=== PATIENT | female | born 1940 | race Caucasian/White ===

== ENCOUNTER 2017-05-09 11:19 | Emergency (ER) | payer OTHER ==
--- NOTE | 2017-05-09 11:55 | EDPHY ---
H & P Stated Complaint: supra[pubic dickens out Time Seen by Provider: 05/09/17 11:33 HPI/ROS: CHIEF COMPLAINT: suprapubic catheter fell out HISTORY OF PRESENT ILLNESS: 77-year-old female history of end-stage multiple sclerosis, urinary retention, suprapubic catheter in place, arrives via ambulance from [facility] after the patient's suprapubic catheter fell out earlier today and nursing staff was unable to replace it. There been no reports of fever chills, no reports of altered mentation, patient denies flu- like symptoms. REVIEW OF SYSTEMS: A ten point review of systems was performed and is negative with the exception of the items mentioned in the HPI PAST MEDICAL & SURGICAL HISTORY: End-stage multiple sclerosis. Chronic contractures. Chronic indwelling suprapubic catheter secondary to history of urinary retention. SOCIAL HISTORY:lives at [facility] PHYSICAL EXAM (Prior to examination, patient consented to physical exam, hands were washed and my usual and customary physical exam procedures followed) 1) GENERAL: Well-developed, well-nourished, alert and oriented. Appears to be in no acute distress. 2) HEAD: Normocephalic, atraumatic 3) HEENT: Pupils equal, round, reactive to light bilaterally. Sclera anicteric. 4) NECK: Full range of motion, no meningeal signs. 5) LUNGS: Clear auscultation bilaterally, no wheezes, no rhonchi, no retractions. 6) HEART: Regular rate and rhythm, no murmur, no heave, no gallop. 7) ABDOMEN: right lower quadrant suprapubic catheter site with leaking urine. No guarding, no rebound, no focal tenderness, negative McBurney's, negative Mcmahon's, negative Rovsing's, negative peritoneal sign, 8) MUSCULOSKELETAL: o peripheral edema or discoloration. 9) BACK: No CVA tenderness. 10) SKIN: No rash, no petechiae. 11) Psychiatric: Patient is oriented X 3, there is no agitation. DIFFERENTIAL DIAGNOSIS: in no particular include but limited to cystitis, urinary retention, suprapubic catheter replacement - Personal History Current Tetanus/Diphtheria Vaccine: Unsure Current Tetanus Diphtheria and Acellular Pertussis (TDAP): Unsure - Medical/Surgical History Hx Asthma: No Hx Chronic Respiratory Disease: No Hx Diabetes: No Hx Cardiac Disease: Yes Hx Renal Disease: Yes Hx Cirrhosis: No Hx Alcoholism: No Hx HIV/AIDS: No Hx Splenectomy or Spleen Trauma: No Other PMH: PMH: CHF, MS, PNeumonia, DVT, Cellulitis, C-diff (at some time), UTIs , neurogenic bladder, Constipation - Social History Smoking Status: Unknown if ever smoked Constitutional: Initial Vital Signs Temperature (C) 36.7 C 05/09/17 11:20 Heart Rate 72 05/09/17 11:20 Respiratory Rate 16 05/09/17 11:20 Blood Pressure 139/66 H 05/09/17 11:20 O2 Sat (%) 94 05/09/17 11:20 O2 Delivery Mode Oxymizer O2 (L/minute) 10 Allergies/Adverse Reactions: clindamycin [Clindamycin] Allergy (Severe, Verified 09/20/12 13:13) Abdominal Pain Sulfa (Sulfonamide Antibiotics) Allergy (Severe, Verified 09/20/12 13:13) Unknown Home Medications: Medication Instructions Recorded Baclofen [Baclofen 10 mg (*)] 5 mg PO TID 09/20/12 Baclofen [Baclofen 10 mg (*)] 10 mg PO HS 09/20/12 Famotidine [Pepcid 20 MG (*)] 20 mg PO HS 09/20/12 Gabapentin [Neurontin 300 MG (*)] 600 mg PO DAILY@18 09/20/12 Gabapentin [Neurontin 400 MG (*)] 400 mg PO BID@0600,1200 09/20/12 Ipratropium/Albuterol [Duoneb (*)] 1 vial IH BID 09/20/12 Methenamine Raciel [Hiprex 1 gm (*)] 1 gm PO BID 09/20/12 Oxycodone Ir [Oxy Ir 5 mg (RX)] 2 tab PO Q3 PRN 09/20/12 Polyethylene Glycol 3350 [Miralax 17 g PO DAILY 09/20/12 17 gm (*)] Potassium Cl [Klor-Con 10 meq (RX)] 10 meq PO DAILY 09/20/12 Sennosides/Docusate Sodium 3 tab PO DAILY 09/20/12 [Senokot-S] Acetaminophen 650 mg RC Q6 PRN 05/16/16 Acetaminophen [Tylenol 325mg (*)] 650 mg PO Q4 PRN 05/16/16 Albuterol [Proventil Neb] 2.5 mg IH Q2H PRN 05/16/16 Benzocaine/Menthol 15/4 [Cepacol 1 ea PO Q2H PRN 05/16/16 Lozenge] Bisacodyl [Dulcolax] 10 mg RC ONCE PRN 05/16/16 Calcium Carbonate [Tums 500MG (*)] 500 mg PO QID PRN 05/16/16 Cholecalciferol Vit D3 [Vitamin D3 50,000 unit PO Q30D 05/16/16 (*)] Escitalopram Oxalate [Lexapro 10 10 mg PO DAILY 05/16/16 MG] Fluconazole [Diflucan (*)] 100 mg PO DAILY 05/16/16 Folic Acid [Folic Acid 1 MG (*)] 1 mg PO DAILY 05/16/16 Furosemide [Lasix 20 MG (*)] 20 mg PO DAILY 05/16/16 Glatiramer Acetate [Copaxone] 20 mg SQ DAILY 05/16/16 Hydrocortisone 0.2% Valerate 1 julien TP TID 05/16/16 [Westcort 0.2% Cream (*)] Magnesium Hydroxide [Milk of 30 ml PO DAILY PRN 05/16/16 Magnesia (*)] Ondansetron Odt [Zofran Odt 4 mg 4 mg PO TID PRN 05/16/16 (*)] Polyvinyl Alcohol [Artificial 1 drop EACHEYE DAILY 05/16/16 Tears] Polyvinyl Alcohol [Artificial 1 drop EACHEYE Q4H PRN 05/16/16 Tears] Prochlorperazine Maleate 25 mg RC Q12H PRN 05/16/16 [Compazine 25mg supp (*)] Sodium Chloride [Deep Sea] 2 sprays EACHNARE QID 05/16/16 Warfarin Sodium [Coumadin 2.5MG 2.5 mg PO SUTUWETHSA 05/16/16 (*)] clonazePAM [Clonazepam] 0.25 mg PO DAILY PRN 05/16/16 fentaNYL [Duragesic 50 MCG Patch 50 mcg TD Q72H 05/16/16 (*)] guaiFENesin/DEXTROMETHORPHAN 5 ml PO Q6 PRN 05/16/16 [Robitussin Dm Oral Liquid (*)] traZODone [traZODONE 50MG (*)] 75 mg PO HS 05/16/16 traZODone [traZODONE 50MG (*)] 75 mg PO HS PRN 05/16/16 Cephalexin [Keflex] 500 mg PO QID 7 Days 05/09/17 Medical Decision Making ED Course/Re-evaluation: 11:55 a.m.: Repeated attempts to replace the suprapubic catheter by the nursing staff by myself have been unsuccessful. discussed case with Dr Han in ER. 12:39 p.m.: Phone consultation with Dr. Florian Hopson interventional radiologist who will attempt interventional radiology catheter placement 3:15 p.m.: Re-evaluation, patient is return from Interventional Radiology, patent catheter. Waiting on urinalysis prior to discharge 3:25 p.m.: Urinalysis positive for bacteriuria, pyuria. Urine cultured. Doubt urosepsis. Patient started on oral antibiotics. She does have concomitant warfarin use. Have discussed with patient also written her discharge instructions importance of close INR monitoring. - Data Points Laboratory Results: 05/09/17 15:09 Urine Color LISANDRA Urine Appearance HAZY Urine pH 8.0 H (5.0-7.5) Ur Specific [place] 1.019 (1.002-1.030) Urine Protein NEGATIVE (NEGATIVE) Urine Ketones NEGATIVE (NEGATIVE) Urine Blood 2+ H (NEGATIVE) Urine Nitrate POSITIVE H (NEGATIVE) Urine Bilirubin NEGATIVE (NEGATIVE) Urine Urobilinogen 4.0 EU H EU (0.2-1.0) Ur Leukocyte Esterase 3+ H (NEGATIVE) Urine RBC 25-50 /hpf H /hpf (0-3) Urine WBC 50-182 /hpf H /hpf (0-3) Ur Epithelial Cells TRACE /lpf /lpf (NONE-1+) Urine Bacteria TRACE /hpf H /hpf (NONE SEEN) Urine Mucus TRACE /lpf /lpf (NONE-1+) Urine Glucose NEGATIVE (NEGATIVE) Medications Given: Discontinued Medications Lorazepam (Ativan Injection) 0.5 mg IVP EDNOW ONE Stop: 05/09/17 11:55 Last Admin: 05/09/17 12:09 Dose: 0.5 mg Departure - Departure Disposition: Home, Routine, Self-Care Clinical Impression: Suprapubic catheter dysfunction Qualifiers: Encounter type: initial encounter Qualified Code(s): T83.010A - Breakdown ( mechanical) of cystostomy catheter, initial encounter Condition: Good Instructions: Dickens Catheter Placement and Care (ED), Catheter-associated Urinary Tract Infection (ED) Additional Instructions: You need to have your INR checked in 2 days. Recommend you also follow up with your urologist this week. Referrals: Queenie Ray MD [Primary Care Provider] - 1-2 days without fail Don Powell MD [Medical Doctor] - 1-2 days without fail Prescriptions: Cephalexin [Keflex] 500 mg PO QID 7 Days
[2017-05-09] MEDS: LORazepam 2 MG/ML INJ IVP ONE (12:09)
[2017-05-09] MEDS ORDERED: LIDOCAINE 2% JELLY 20 ML (UROJECT) ONE (14:37)
[2017-05-09] MEDS ORDERED: IOPAMIDOL (ISOVUE-300) 100 ML BTL ONE (14:38)
[2017-05-09 15:20] VITALS: O2SAT 94
[2017-05-09 15:23] LABS: COLOR AMBER; LEUKOCYTE ESTERASE,URINE 3+ (NEGATIVE); NITRITE,URINE POSITIVE (NEGATIVE)
[2017-05-09 15:27] LABS: BACTERIA TRACE /hpf (NONE SEEN); MUCUS TRACE /lpf (NONE-1+); RBC,URINE 25-50 /hpf (0-3); WBC,URINE 50-182 /hpf (0-3)
[2017-05-09] MEDS: CEPHALEXIN 500 MG CAP PO ONE (15:31)
[2017-05-09 16:35] VITALS: PULSE 67
[2017-05-09 17:00] VITALS: BP 114/62; RESP 20; TEMP 98.1
== END 2017-05-09 16:59 | disposition home or self-care (01) ==
LOC: EDUNIT#
DX: T83.010A Breakdown (mechanical) of cystostomy catheter, initial encounter (principal); I50.9 Heart failure, unspecified; Y82.8 Other medical devices associated with adverse incidents
CPT/HCPCS: 76000; 96374; 99284; J2060; Q9967

== ENCOUNTER 2017-05-15 15:02 | Emergency (ER) | payer OTHER ==
[2017-05-15 15:11] VITALS: RESP 16
[2017-05-15] MEDS ORDERED: CEPHALEXIN 500 MG CAP PO ONE (15:12)
--- NOTE | 2017-05-15 15:16 | EDPHY ---
H & P Time Seen by Provider: 05/15/17 15:02 HPI/ROS: CHIEF COMPLAINT: Right 4th toe laceration HISTORY OF PRESENT ILLNESS: 77-year-old wheelchair-bound female history of end- stage multiple sclerosis arrives via ambulance from [facility] after her wheelchair got away from her right 4th toe got jammed into the wheel sustaining laceration. Tetanus is up-to-date. Denies paresthesia. Denies discoloration. Occurred shortly prior to arrival. Denies other injury. Patient did not fall out of her wheelchair REVIEW OF SYSTEMS: A ten point review of systems was performed and is negative with the exception of the items mentioned in the HPI PAST MEDICAL & SURGICAL HISTORY: End-stage multiple sclerosis, wheelchair bound SOCIAL HISTORY: Lives at [facility] PHYSICAL EXAM (Prior to examination, patient consented to physical exam, hands were washed and my usual and customary physical exam procedures followed) 1) GENERAL: Well-developed, well-nourished, alert and oriented. Appears to be in no acute distress. 2) HEAD: Normocephalic, atraumatic 3) HEENT: Sclera anicteric. 4) NECK: no meningeal signs. 5) LUNGS: Breathing come 6) HEART: Regular rate and rhythm, no murmur, no heave, no gallop. 7) ABDOMEN: No guarding, 8) MUSCULOSKELETAL: Right foot: 2 cm laceration to the distal phalanx of the right 4th toe. There is no erythema, no signs of infection. No foreign body. 9) BACK: no visual or palpable abnormality. 10) SKIN: No rash, no petechiae. DIFFERENTIAL DIAGNOSIS: in no particular include but limited to laceration, fracture, sprain, open fracture Smoking Status: Unknown if ever smoked Constitutional: Initial Vital Signs Temperature (C) 36.9 C 05/15/17 15:10 Heart Rate 83 05/15/17 15:10 Respiratory Rate 16 05/15/17 15:10 Blood Pressure 134/92 H 05/15/17 15:10 O2 Sat (%) 94 05/15/17 15:10 O2 Delivery Mode Room Air Allergies/Adverse Reactions: clindamycin [Clindamycin] Allergy (Severe, Verified 09/20/12 13:13) Abdominal Pain Sulfa (Sulfonamide Antibiotics) Allergy (Severe, Verified 09/20/12 13:13) Unknown Home Medications: Medication Instructions Recorded Baclofen [Baclofen 10 mg (*)] 5 mg PO TID 09/20/12 Baclofen [Baclofen 10 mg (*)] 10 mg PO HS 09/20/12 Famotidine [Pepcid 20 MG (*)] 20 mg PO HS 09/20/12 Gabapentin [Neurontin 300 MG (*)] 600 mg PO DAILY@18 09/20/12 Gabapentin [Neurontin 400 MG (*)] 400 mg PO BID@0600,1200 09/20/12 Ipratropium/Albuterol [Duoneb (*)] 1 vial IH BID 09/20/12 Methenamine Raciel [Hiprex 1 gm (*)] 1 gm PO BID 09/20/12 Oxycodone Ir [Oxy Ir 5 mg (RX)] 2 tab PO Q3 PRN 09/20/12 Polyethylene Glycol 3350 [Miralax 17 g PO DAILY 09/20/12 17 gm (*)] Potassium Cl [Klor-Con 10 meq (RX)] 10 meq PO DAILY 09/20/12 Sennosides/Docusate Sodium 3 tab PO DAILY 09/20/12 [Senokot-S] Acetaminophen 650 mg RC Q6 PRN 05/16/16 Acetaminophen [Tylenol 325mg (*)] 650 mg PO Q4 PRN 05/16/16 Albuterol [Proventil Neb] 2.5 mg IH Q2H PRN 05/16/16 Benzocaine/Menthol 15/4 [Cepacol 1 ea PO Q2H PRN 05/16/16 Lozenge] Bisacodyl [Dulcolax] 10 mg RC ONCE PRN 05/16/16 Calcium Carbonate [Tums 500MG (*)] 500 mg PO QID PRN 05/16/16 Cholecalciferol Vit D3 [Vitamin D3 50,000 unit PO Q30D 05/16/16 (*)] Escitalopram Oxalate [Lexapro 10 10 mg PO DAILY 05/16/16 MG] Fluconazole [Diflucan (*)] 100 mg PO DAILY 05/16/16 Folic Acid [Folic Acid 1 MG (*)] 1 mg PO DAILY 05/16/16 Furosemide [Lasix 20 MG (*)] 20 mg PO DAILY 05/16/16 Glatiramer Acetate [Copaxone] 20 mg SQ DAILY 05/16/16 Hydrocortisone 0.2% Valerate 1 julien TP TID 05/16/16 [Westcort 0.2% Cream (*)] Magnesium Hydroxide [Milk of 30 ml PO DAILY PRN 05/16/16 Magnesia (*)] Ondansetron Odt [Zofran Odt 4 mg 4 mg PO TID PRN 05/16/16 (*)] Polyvinyl Alcohol [Artificial 1 drop EACHEYE DAILY 05/16/16 Tears] Polyvinyl Alcohol [Artificial 1 drop EACHEYE Q4H PRN 05/16/16 Tears] Prochlorperazine Maleate 25 mg RC Q12H PRN 05/16/16 [Compazine 25mg supp (*)] Sodium Chloride [Deep Sea] 2 sprays EACHNARE QID 05/16/16 Warfarin Sodium [Coumadin 2.5MG 2.5 mg PO SUTUWETHSA 05/16/16 (*)] clonazePAM [Clonazepam] 0.25 mg PO DAILY PRN 05/16/16 fentaNYL [Duragesic 50 MCG Patch 50 mcg TD Q72H 05/16/16 (*)] guaiFENesin/DEXTROMETHORPHAN 5 ml PO Q6 PRN 05/16/16 [Robitussin Dm Oral Liquid (*)] traZODone [traZODONE 50MG (*)] 75 mg PO HS 05/16/16 traZODone [traZODONE 50MG (*)] 75 mg PO HS PRN 05/16/16 Cephalexin [Keflex] 500 mg PO QID 7 Days 05/09/17 Cephalexin [Keflex] 500 mg PO QID 5 Days 05/15/17 MDM/Departure - [facility] Procedures: Procedure: Laceration repair. I explained the indications, risks and benefits for both laceration repair and anesthetic administration. Verbal consent was obtained from the patient . The laceration on the right 4th toe was anesthetized using 0.5% bupivicaine without epinephrine digital nerve block. After anesthetic administered the patient was observed for a period of time and had no apparent adverse effects. The wound was cleaned, prepped, draped in normal sterile fashion and explored to its base. No foreign body seen, no foreign bodies palpated. There were no deep structures involved. No tendon injury was identified. The wound was repaired with 4 simple interrupted 4 0 Prolene suture. The wound repair was simple. The procedure was performed by myself. Patient has been informed that scarring will occur, although efforts have been made to minimize this. Medications Given: Discontinued Medications Cephalexin HCl (Keflex) 500 mg PO EDNOW ONE PRN Reason: Protocol Stop: 05/15/17 15:13 Last Admin: 05/15/17 15:43 Dose: 500 mg - Depart Disposition: Home, Routine, Self-Care Clinical Impression: Toe laceration Qualifiers: Encounter type: initial encounter Toe: lesser toe Damage to nail status: without damage Foreign body presence: without foreign body Laterality: right Qualified Code(s): S91.114A - Laceration without foreign body of right lesser toe(s) without damage to nail, initial encounter Condition: Good Instructions: Care For Your Stitches (ED), Laceration (ED) Additional Instructions: Return to the ER if you develop redness, swelling, discharge, warmth to the wound, red streaks going up yourleg, or any other symptoms that concern you. Prescriptions: Cephalexin [Keflex] 500 mg PO QID 5 Days Referrals: Return, to the ER in 14 days for suture removal [Other] - 05/29/17
[2017-05-15 16:25] VITALS: BP 129/80; PULSE 85; TEMP 97.9; O2SAT 93
== END 2017-05-15 16:25 | disposition home or self-care (01) ==
LOC: EDUNIT#
PROC: 0HQMXZZ Repair Right Foot Skin, External Approach (ICD-10-PCS; principal; 2017-05-15)
DX: S91.114A Laceration without foreign body of right lesser toe(s) without damage to nail, initial encounter (principal); Z79.01 Long term (current) use of anticoagulants; W23.0XXA Caught, crushed, jammed, or pinched between moving objects, initial encounter; Y92.129 Unspecified place in nursing home as the place of occurrence of the external cause

== ENCOUNTER 2017-07-15 20:11 | Inpatient (IN) | payer OTHER ==
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
[2017-07-15] MEDS ORDERED: ACETAMINOPHEN 325 MG TAB PO PRN (22:01)
[2017-07-15] MEDS ORDERED: ONDANSETRON 4 MG/2 ML VIAL IVP PRN (22:01)
[2017-07-15] MEDS ORDERED: ONDANSETRON DISINTEGRATING 4 MG TAB PO PRN (22:01)
[2017-07-15] MEDS ORDERED: fentaNYL 100 MCG/2 ML INJ ONE (22:47)
[2017-07-15 23:07] LABS: % IMMATURE GRANULYOCYTES 0.4 % (0.0-1.1); ABSOLUTE IMMATURE GRANULOCYTES 0.03 10^3/uL (0.00-0.10); ADD DIFF? NO; ADD MORPH? NO; ADD SCAN? NO; ATYPICAL LYMPHOCYTE FLAG 0 (0-99); FRAGMENT RBC FLAG 0 (0-99); HEMATOCRIT 41.1 % (38.0-47.0); HEMOGLOBIN 13.6 g/dL (12.6-16.3); LEFT SHIFT FLG 0 (0-99); LIPEMIA HEMOLYSIS FLAG 80 (0-99); MEAN CELL HEMOGLOBIN CONCENTR. 33.1 g/dL (32.4-36.7); MEAN CELL VOLUME 99.8 fL (81.5-99.8); MEAN PLATELET VOLUME 9.5 fL (8.7-11.7); PLATELET CLUMPS FLAG 0 (0-99); PLATELET COUNT 208 10^3/uL (150-400); RED BLOOD CELL COUNT 4.12 10^6/uL (4.18-5.33); RED CELL DISTRIBUTION WIDTH 12.6 % (11.5-15.2)
[2017-07-15] MEDS ORDERED: fentaNYL 100 MCG/2 ML INJ IVP ONE (23:10)
[2017-07-15 23:16] LABS: APTT 46.8 SEC (23.0-38.0); INR 1.96 (0.83-1.16); PROTIME(PATIENT) 22.4 SEC (12.0-15.0)
[2017-07-15 23:24] LABS: ANION GAP 11 mEq/L (8-16); CALCIUM 9.6 mg/dL (8.5-10.4); CARBON DIOXIDE 28 mEq/l (22-31); CHLORIDE 99 mEq/L (97-110); CREATININE 0.6 mg/dL (0.6-1.0); GLOMERULAR FILTRATION RATE > 60; GLUCOSE 114 mg/dL (70-100); POTASSIUM 4.3 mEq/L (3.5-5.2); SODIUM 138 mEq/L (134-144)
--- NOTE | 2017-07-15 23:42 | PDGENHP ---
History and Physical - Chief Complaint Leg pain - History of Present Illness 77 yo F w/ advanced MS presents to ED with b/l leg pain after fall during transfer at her nursing facility. On Tuesday patient experienced a fall at her home ([facility]) during a transfer. She experienced days for the following days until finally Xrays were obtained showing bilateral fractures. She was brought in to the ED for further evaluation. Upon my evaluation patient has no complaints aside from bilateral leg pain. She is wheelchair bound at baseline, uses 4 L/min O2 continuously, and has an indwelling suprapubic catheter. History Information - Allergies/Home Medication List Allergies/Adverse Reactions: clindamycin [Clindamycin] Allergy (Severe, Verified 09/20/12 13:13) Abdominal Pain Sulfa (Sulfonamide Antibiotics) Allergy (Severe, Verified 09/20/12 13:13) Unknown Home Medications: Baclofen [Baclofen 10 mg (*)] 5 mg PO TID 09/20/12 [Last Taken 09/20/12] Baclofen [Baclofen 10 mg (*)] 10 mg PO HS 09/20/12 [Last Taken 09/19/12] Famotidine [Pepcid 20 MG (*)] 20 mg PO HS 09/20/12 [Last Taken 09/20/12] Gabapentin [Neurontin 300 MG (*)] 600 mg PO DAILY@18 09/20/12 [Last Taken ] Gabapentin [Neurontin 400 MG (*)] 400 mg PO BID@0600,1200 09/20/12 [Last Taken 09/20/12] Ipratropium/Albuterol [Duoneb (*)] 1 vial IH BID 09/20/12 [Last Taken 09/20/12] Methenamine Raciel [Hiprex 1 gm (*)] 1 gm PO BID 09/20/12 [Last Taken 09/20/12] Oxycodone Ir [Oxy Ir 5 mg (RX)] 2 tab PO Q3 PRN 09/20/12 [Last Taken 09/20/12] Polyethylene Glycol 3350 [Miralax 17 gm (*)] 17 g PO DAILY 09/20/12 [Last Taken 09/20/12] Potassium Cl [Klor-Con 10 meq (RX)] 10 meq PO DAILY 09/20/12 [Last Taken ] Sennosides/Docusate Sodium [Senokot-S] 3 tab PO DAILY 09/20/12 [Last Taken 09/20] Acetaminophen 650 mg RC Q6 PRN 05/16/16 [Last Taken Unknown] Acetaminophen [Tylenol 325mg (*)] 650 mg PO Q4 PRN 05/16/16 [Last Taken Unknown] Albuterol [Proventil Neb] 2.5 mg IH Q2H PRN 05/16/16 [Last Taken Unknown] Benzocaine/Menthol 15/01 [Cepacol Lozenge] 1 ea PO Q2H PRN 05/16/16 [Last Taken Unknown] Bisacodyl [Dulcolax] 10 mg RC ONCE PRN 05/16/16 [Last Taken Unknown] Calcium Carbonate [Tums 500MG (*)] 500 mg PO QID PRN 05/16/16 [Last Taken Unknown] Cholecalciferol Vit D3 [Vitamin D3 (*)] 50,000 unit PO Q30D 05/16/16 [Last Taken Unknown] Escitalopram Oxalate [Lexapro 10 MG] 5 mg PO DAILY 05/16/16 [Last Taken Unknown] Fluconazole [Diflucan (*)] 100 mg PO DAILY 05/16/16 [Last Taken Unknown] Folic Acid [Folic Acid 1 MG (*)] 1 mg PO DAILY 05/16/16 [Last Taken Unknown] Furosemide [Lasix 20 MG (*)] 20 mg PO DAILY 05/16/16 [Last Taken Unknown] Glatiramer Acetate [Copaxone] 20 mg SQ DAILY 05/16/16 [Last Taken Unknown] Hydrocortisone 0.2% Valerate [Westcort 0.2% Cream (*)] 1 julien TP TID 05/16/16 [ Last Taken Unknown] Magnesium Hydroxide [Milk of Magnesia (*)] 30 ml PO DAILY PRN 05/16/16 [Last Taken Unknown] Ondansetron Odt [Zofran Odt 4 mg (*)] 4 mg PO TID PRN 05/16/16 [Last Taken Unknown] Polyvinyl Alcohol [Artificial Tears] 1 drop EACHEYE DAILY 05/16/16 [Last Taken Unknown] Polyvinyl Alcohol [Artificial Tears] 1 drop EACHEYE Q4H PRN 05/16/16 [Last Taken Unknown] Prochlorperazine Maleate [Compazine 25mg supp (*)] 25 mg RC Q12H PRN 05/16/16 [ Last Taken Unknown] Sodium Chloride [Deep Sea] 2 sprays EACHNARE QID 05/16/16 [Last Taken Unknown] Warfarin Sodium [Coumadin 2.5MG (*)] 2.5 mg PO SUTUWETHSA 05/16/16 [Last Taken Unknown] clonazePAM [Clonazepam] 0.25 mg PO DAILY PRN 05/16/16 [Last Taken Unknown] fentaNYL [Duragesic 50 MCG Patch (*)] 50 mcg TD Q72H 05/16/16 [Last Taken Unknown] guaiFENesin/DEXTROMETHORPHAN [Robitussin Dm Oral Liquid (*)] 5 ml PO Q6 PRN [Last Taken Unknown] traZODone [traZODONE 50MG (*)] 75 mg PO HS 05/16/16 [Last Taken Unknown] traZODone [traZODONE 50MG (*)] 75 mg PO HS PRN 05/16/16 [Last Taken Unknown] Glatiramer Acetate [Copaxone] 20 mg SQ DAILY 07/15/17 [Last Taken Unknown] I have personally reviewed and updated: family history, medical history - Past Medical History DVT Additional medical history: MS - Family History Positive for: cancer - Social History Smoking Status: Unknown if ever smoked Review of Systems Review of Systems: ROS: 10pt was reviewed & negative except for what was stated in HPI & below Physical Exam Physical Exam: Temp Pulse Resp BP Pulse Ox 36.9 C 72 16 112/71 95 07/15/17 20:17 07/15/17 23:10 07/15/17 23:10 07/15/17 23:10 07/15/17 23:10 O2 (L/minute) 2 Constitutional: appears nourished, uncomfortable Eyes: PERRL, EOMI Ears, Nose, Mouth, Throat: moist mucous membranes, no oral mucosal ulcers Cardiovascular: regular rate and rhythym, no murmur, rub, or gallop Respiratory: no respiratory distress, clear to auscultation Gastrointestinal: normoactive bowel sounds, soft, non-tender abdomen Genitourinary: other (Suprapubic catheter present, scant fibrionus d/c, no signs of infection) Musculoskeletal: pain with ROM, muscular tenderness Neurologic: AAOx3, CN II-XII Intact, other (Minimal LE strength) Psychiatric: interacting appropriately, not anxious Lab Data & Imaging Review 07/15/17 22:40 07/15/17 22:40 WBC 8.45 10^3/uL (3.80-9.50) 07/15/17 22:40 RBC 4.12 10^6/uL (4.18-5.33) L 07/15/17 22:40 Hgb 13.6 g/dL (12.6-16.3) 07/15/17 22:40 Hct 41.1 % (38.0-47.0) 07/15/17 22:40 MCV 99.8 fL (81.5-99.8) 07/15/17 22:40 MCH 33.0 pg (27.9-34.1) 07/15/17 22:40 MCHC 33.1 g/dL (32.4-36.7) 07/15/17 22:40 RDW 12.6 % (11.5-15.2) 07/15/17 22:40 Plt Count 208 10^3/uL (150-400) 07/15/17 22:40 MPV 9.5 fL (8.7-11.7) 07/15/17 22:40 Neut % (Auto) 66.4 % (39.3-74.2) 07/15/17 22:40 Lymph % (Auto) 22.4 % (15.0-45.0) 07/15/17 22:40 Heard % (Auto) 6.4 % (4.5-13.0) 07/15/17 22:40 Eos % (Auto) 3.9 % (0.6-7.6) 07/15/17 22:40 Baso % (Auto) 0.5 % (0.3-1.7) 07/15/17 22:40 Nucleat RBC Rel Count 0.0 % (0.0-0.2) 07/15/17 22:40 Absolute Neuts (auto) 5.62 10^3/uL (1.70-6.50) 07/15/17 22:40 Absolute Lymphs (auto) 1.89 10^3/uL (1.00-3.00) 07/15/17 22:40 Absolute Monos (auto) 0.54 10^3/uL (0.30-0.80) 07/15/17 22:40 Absolute Eos (auto) 0.33 10^3/uL (0.03-0.40) 07/15/17 22:40 Absolute Basos (auto) 0.04 10^3/uL (0.02-0.10) 07/15/17 22:40 Absolute Nucleated RBC 0.00 10^3/uL (0-0.01) 07/15/17 22:40 Immature Gran % 0.4 % (0.0-1.1) 07/15/17 22:40 Immature Gran # 0.03 10^3/uL (0.00-0.10) 07/15/17 22:40 PT 22.4 SEC (12.0-15.0) H 07/15/17 22:40 INR 1.96 (0.83-1.16) H 07/15/17 22:40 APTT 46.8 SEC (23.0-38.0) H 07/15/17 22:40 Sodium 138 mEq/L (134-144) 07/15/17 22:40 Potassium 4.3 mEq/L (3.5-5.2) 07/15/17 22:40 Chloride 99 mEq/L (97-110) 07/15/17 22:40 Carbon Dioxide 28 mEq/l (22-31) 07/15/17 22:40 Anion Gap 11 mEq/L (8-16) 07/15/17 22:40 BUN 15 mg/dL (7-23) 07/15/17 22:40 Creatinine 0.6 mg/dL (0.6-1.0) 07/15/17 22:40 Estimated GFR > 60 07/15/17 22:40 Glucose 114 mg/dL (70-100) H 07/15/17 22:40 Calcium 9.6 mg/dL (8.5-10.4) 07/15/17 22:40 Imaging Review: Bilateral tib/fib fractures. Assessment & Plan Assessment: 77 yo F w/ advanced MS and hx DVT on warfarin presents with bilateral tib/fib fractures after a fall. Plan: 1. Bilateral tib/fib fractures - Occurred from fall during a transfer 3 days prior to admission. Patient is wheelchair bound at baseline but experiencing significant pain at this time. - Oxycodone, morphine for pain control - Orthopedic service aware, will see patient in the morning - Maintain NPO in case they plan intervention 2. MS - Advanced disease, wheelchair bound with suprapubic catheter in place. Lives at [facility]. 3. Hx DVT - On warfarin, INR 1.9 on admission. 4. CHRF - On 2-4 L/min O2 chronically, presumably 2/2 known emphysema. Currently at baseline. Diet - NPO @ MN Code - Full Ppx - SCDs Dispo - Admit to observation status
[2017-07-16] MEDS: oxyCODONE IR 5 MG TAB PO PRN ×6 (02:38→22:10)
[2017-07-16 04:46] LABS: % IMMATURE GRANULYOCYTES 0.3 % (0.0-1.1); ABSOLUTE IMMATURE GRANULOCYTES 0.02 10^3/uL (0.00-0.10); ADD DIFF? NO; ADD MORPH? NO; ADD SCAN? NO; ATYPICAL LYMPHOCYTE FLAG 0 (0-99); FRAGMENT RBC FLAG 0 (0-99); HEMATOCRIT 34.2 % (38.0-47.0); HEMOGLOBIN 11.3 g/dL (12.6-16.3); LEFT SHIFT FLG 0 (0-99); LIPEMIA HEMOLYSIS FLAG 80 (0-99); MEAN CELL HEMOGLOBIN 32.7 pg (27.9-34.1); MEAN CELL VOLUME 98.8 fL (81.5-99.8); MEAN PLATELET VOLUME 9.3 fL (8.7-11.7); PLATELET CLUMPS FLAG 0 (0-99); PLATELET COUNT 185 10^3/uL (150-400); RED BLOOD CELL COUNT 3.46 10^6/uL (4.18-5.33); RED CELL DISTRIBUTION WIDTH 12.7 % (11.5-15.2)
[2017-07-16 05:01] LABS: ANION GAP 5 mEq/L (8-16); CALCIUM 9.4 mg/dL (8.5-10.4); CARBON DIOXIDE 29 mEq/l (22-31); CHLORIDE 102 mEq/L (97-110); CREATININE 0.7 mg/dL (0.6-1.0); GLOMERULAR FILTRATION RATE > 60; GLUCOSE 100 mg/dL (70-100); POTASSIUM 4.1 mEq/L (3.5-5.2); SODIUM 136 mEq/L (134-144)
--- NOTE | 2017-07-16 13:07 | HOSPPROG ---
Hospitalist Progress Note Assessment/Plan: 77 yo F w/ advanced MS and hx DVT on warfarin presents with bilateral tib/fib fractures after a fall. First encounter, chart reviewed. D/W CM. Plan: # Bilateral tib/fib fractures - - Occurred from fall during a transfer 3 days prior to admission. - Patient is wheelchair bound at baseline but experiencing significant pain at this time. - Oxycodone, morphine for pain control - Orthopedic service aware, will see patient today - Unsure about surgical intervention, will give regular diet until decision made # MS - - Advanced disease, wheelchair bound with suprapubic catheter in place. - Lives at [facility]. - Family does not want her to go back there at this time -Not interested in palliative either #. Hx DVT - - On warfarin, INR 1.9 on admission. - Awaiting med rec, will complete when available #. CHRF - - On 2-4 L/min O2 chronically, presumably 2/2 known emphysema. Currently at baseline. Diet - Regular Code - Full Ppx - SCDs Dispo - Change to inpatient status Needs further evaluation and plan of care Await ortho consult Order PT/OT when ok with ortho Subjective: Feeling tired and hungry. Still having pain. Objective: Vital Signs Temp Pulse Resp BP Pulse Ox 36.6 C 96 17 127/80 H 90 L 07/16/17 12:00 07/16/17 12:00 07/16/17 12:00 07/16/17 12:00 07/16/17 12:00 Laboratory Results 07/16/17 04:23 07/16/17 04:23 07/15/17 07/16/17 07/17/17 05:59 05:59 05:59 Intake Total 100 Output Total 250 Balance -150 PT 22.4 SEC (12.0-15.0) H 07/15/17 22:40 INR 1.96 (0.83-1.16) H 07/15/17 22:40 - Physical Exam Constitutional: appears nourished, chronically ill appearing, uncomfortable Eyes: PERRL, anicteric sclera, EOMI Ears, Nose, Mouth, Throat: moist mucous membranes, hearing normal, ears appear normal Cardiovascular: regular rate and rhythym, No JVD, No edema Respiratory: no respiratory distress, no rales or rhonchi, reduced air movement Gastrointestinal: normoactive bowel sounds, No tenderness, No ascites, No guarding Skin: warm, normal color, No mottled, No erythema Musculoskeletal: joint tenderness, pain with ROM, muscular tenderness, generalized weakness Psychiatric: not anxious, not encephalopathic, poor memory ICD10 Worksheet Patient Problems: Problems Problem Status Onset Bilateral tibial fractures Acute Acute lower urinary tract infection Active Infection due to resistant organism Active Fecal impaction Acute Pneumonia Acute ESBL (extended spectrum beta-lactamase) producing bacteria infection Acute 04/18
[2017-07-16] MEDS ORDERED: ALBUTEROL 3 ML DEYVIAL IH PRN (14:04)
[2017-07-16] MEDS ORDERED: ONDANSETRON DISINTEGRATING 4 MG TAB PO PRN (14:04)
[2017-07-16] MEDS ORDERED: OXYCODONE 7.5 MG PO PRN (14:04)
[2017-07-16] MEDS ORDERED: BISACODYL 10 MG SUPP PR PRN (14:04)
[2017-07-16] MEDS ORDERED: CEPACOL LOZENGE PO PRN (14:04)
[2017-07-16] MEDS ORDERED: SODIUM CL NASAL 45 ML BTL EACHNARE PRN (14:04)
[2017-07-16] MEDS ORDERED: GUAIFENESIN/DM 10 ML UDCUP PO PRN (14:04)
[2017-07-16] MEDS ORDERED: CALCIUM CARBONATE 500 MG CHEWABLE TAB PO PRN (14:04)
[2017-07-16] MEDS ORDERED: BACLOFEN 10 MG TAB PO PRN (14:04)
[2017-07-16] MEDS ORDERED: MAGNESIUM HYDROXIDE 30 ML UDCUP PO PRN (14:04)
[2017-07-16] MEDS ORDERED: PHENAZOPYRIDINE HCL 100 MG TAB PO PRN (14:04)
[2017-07-16] MEDS ORDERED: ACETAMINOPHEN 650 MG SUPP PR PRN ×2 (14:04)
[2017-07-16] MEDS ORDERED: NON-FORMULARY NEW DRUG (Polyvinyl Alcohol [Artificial Tears] 1 DROP) EACHEYE PRN (14:04)
[2017-07-16] MEDS ORDERED: CHOLECALCIFEROL VIT D3 50,000 UNIT CAP PO SCH (14:15)
[2017-07-16] MEDS ORDERED: TEARS/DEXTRAN 70/HYPROMELLOSE 15 ML OPHT.BTL EACHEYE PRN (14:33)
--- NOTE | 2017-07-16 14:39 | PDMN ---
Medical Necessity Medical necessity: Pt meets INPT criteria per TREASURY AGENT/MD as of 07/16/17. Est. LOS >2 MN for ongoing eval/mgmt of bilateral tib/fib fractures after a fall; hx MS, DVT , CHRF per TREASURY AGENT progress note.
[2017-07-16] MEDS: GABAPENTIN 400 MG CAP PO SCH ×2 (15:41→21:49)
[2017-07-16] MEDS: ACETAMINOPHEN 325 MG TAB PO SCH ×2 (15:41→21:50)
[2017-07-16] MEDS: LIDOCAINE 5% 1 EA PATCH TD SCH (15:42)
--- NOTE | 2017-07-16 16:26 | ASMTCMCOM ---
CM Note CM Note Notes: Pt. is a 77-year-old woman admitted after Pt. fell at [facility] and has bilateral tib/fib fractures. Pt. w/ hx. advanced MS and has lived at [facility] for some 10 years. Per daughter, Jessica Pt "was dropped" on 07/12/17 by staff at [facility]. Per Jesisca, Pt. had many interactions with staff after she was dropped and no one noticed her legs were in need of ortho medical attention for days. Daughter would like Pt. not to go back to [facility] at this time. Daughter would like Inpatient Rehab eval and is open to new temporary rehab placement. [facility] sent referrals via [employer] to [facility]. Discussed Inpatient Rehab eval order with hospitalist. Jessica states her brother is a physician and is contemplating legal options. Await completion of PT eval. Date Signed: 07/16/2017 04:25 PM Electronically Signed By:Dorothy Fischer LCSW
[2017-07-16] MEDS: FAMOTIDINE 20 MG TAB PO SCH (21:49)
[2017-07-16] MEDS: traZODone 50 MG TAB PO SCH (21:50)
[2017-07-16] MEDS: SENNOSIDES/DOCUSATE SODIUM TAB PO SCH (21:50)
[2017-07-17] MEDS: oxyCODONE IR 5 MG TAB PO PRN ×4 (01:45→16:32)
[2017-07-17] MEDS: LIDOCAINE 5% 1 EA PATCH TD SCH ×2 (04:33→14:30)
[2017-07-17] MEDS ORDERED: GLATIRAMER ACETATE 20 MG SQ SCH (09:00)
[2017-07-17] MEDS ORDERED: NON-FORMULARY NEW DRUG (Clonazepam [Clonazepam] 0.25 MG) PO SCH (09:00)
[2017-07-17] MEDS: ESCITALOPRAM OXALATE 10 MG TAB PO SCH (09:43)
[2017-07-17] MEDS: POLYETHYLENE GLYCOL 3350 17 GM PKT PO SCH (09:43)
[2017-07-17] MEDS: SENNOSIDES/DOCUSATE SODIUM TAB PO SCH ×2 (09:43→23:14)
[2017-07-17] MEDS: FOLIC ACID 1 MG TAB PO SCH (09:43)
[2017-07-17] MEDS: GABAPENTIN 400 MG CAP PO SCH ×3 (09:43→23:10)
[2017-07-17] MEDS: clonazePAM 0.5 MG TAB PO SCH (09:44)
[2017-07-17] MEDS: FUROSEMIDE 20 MG TAB PO SCH (09:44)
[2017-07-17] MEDS: POTASSIUM CL 10 MEQ TAB PO SCH (09:44)
[2017-07-17] MEDS: ACETAMINOPHEN 325 MG TAB PO SCH ×3 (09:44→23:14)
--- NOTE | 2017-07-17 10:28 | WOCRNPDOC ---
WOCRN Advanced Assessment Note - Skin Integrity Problem, Advanced Assess Right Sacrum Dressing Type: Open to Air Exudate Amount: None Exudate Characteristic(s): None Nurys Wound Tissue: Blanching, Intact Site Measurement - Head-to-Toe Length X Width X Depth (cm): [id number] Skin Integrity Problem Comment: Discrete, circular-shaped area of blanching erythema noted over patient's R sacrum. Nurys-wound skin intact and blanching throughout. Patient is generally immobile r/t MS and more recently r/t bialteral fx in her legs. Recommend Accu-max pump for her bed. mechanical systems engineer Chela present and assisting. No need for wound care to follow this site ongoing; please reconsult as needed. Left Posterior Upper Thigh Dressing Type: Open to Air Exudate Amount: None Exudate Characteristic(s): None Integumentary Issue Intervention: Barrier Cream Applied (Calazime) Nurys Wound Tissue: Blanching, Erythema, Denuded Nurys Wound Swelling: None Wound Bed Color: Red Site Measurement - Head-to-Toe Length X Width X Depth (cm): [id number] Skin Integrity Problem Comment: Raw, denuded skin noted on patient's L upper/ posterior thigh, just below her nurys-area. Appearance consistent w/ moisture- associated dermatitis. While patient does have a suprapubic catheter in place, urine was visualized coming from her urethra and between her legs during assessment. Calazime paste applied over the denuded skin, and nursing will remove patient's brief to reduce heat/moisture to her skin. I explained to patient the benefits associated w/ removing the brief, and she was amenable to this plan of care. Wound care will follow up with patient on Sunday 07/22.
--- NOTE | 2017-07-17 11:49 | HOSPPROG ---
Hospitalist Progress Note Assessment/Plan: 77 yo F w/ advanced MS and hx DVT on warfarin presents with bilateral tib/fib fractures after a fall. D/W RN. Plan: # Bilateral tib/fib fractures - - Occurred from fall during a transfer 3 days prior to admission. - Patient is wheelchair bound at baseline but experiencing significant pain at this time. - Oxycodone, for pain control. No morphine per daughter. Started long acting oxy as well as IR - Orthopedic service aware, Dr Radford to provide consult. Official note still pending. - Unsure about surgical intervention, will give regular diet until decision made # MS - - Advanced disease, wheelchair bound with suprapubic catheter in place. - Lives at [facility]. - Family does not want her to go back there at this time - Not interested in palliative either #. Hx DVT - - On warfarin, INR 1.9 on admission. - Cont coumadin, reverse if surgery indicated. #. CHRF - - On 2-4 L/min O2 chronically, presumably 2/2 known emphysema. Currently at baseline. Diet - Regular Code - Full Ppx - SCDs Dispo - Change to inpatient status Needs further evaluation and plan of care Await ortho official consult Order PT/OT when ok with ortho High risk for respiratory complications and/or clotting given decreased mobility. Subjective: In bed. Watching TV. C/O pain. No other concerns. Objective: Vital Signs Temp Pulse Resp BP Pulse Ox 36.4 C 88 17 117/66 99 07/17/17 07:29 07/17/17 07:29 07/17/17 07:29 07/17/17 07:29 07/17/17 07:29 PT 22.4 SEC (12.0-15.0) H 07/15/17 22:40 INR 1.96 (0.83-1.16) H 07/15/17 22:40 - Physical Exam Constitutional: appears nourished, chronically ill appearing, uncomfortable Eyes: PERRL, anicteric sclera, EOMI Ears, Nose, Mouth, Throat: moist mucous membranes, hearing normal, ears appear normal Cardiovascular: No JVD, No edema Respiratory: no respiratory distress, no rales or rhonchi, reduced air movement Gastrointestinal: normoactive bowel sounds, No tenderness, No ascites Skin: warm, normal color, No mottled Musculoskeletal: joint tenderness, pain with ROM, muscular tenderness, generalized weakness Psychiatric: not anxious, not encephalopathic, poor judgement, poor memory ICD10 Worksheet Patient Problems: Problems Problem Status Onset Bilateral tibial fractures Acute Acute lower urinary tract infection Active Infection due to resistant organism Active Fecal impaction Acute Pneumonia Acute ESBL (extended spectrum beta-lactamase) producing bacteria infection Acute 04/18
[2017-07-17] MEDS: Glatiramer Acetate [Copaxone] 20 MG SQ SCH (14:45)
--- NOTE | 2017-07-17 15:03 | ASMTCMCOM ---
CM Note CM Note Notes: Chart reviewed. Lengthy discussion with daughter Jessica. [facility] acceptances for inpt vs [facility] at this point will update referrals. CM to follow. Date Signed: 07/17/2017 03:03 PM Electronically Signed By:Nasra Sparks RN
[2017-07-17] MEDS: WARFARIN SODIUM 2.5 MG TAB PO SCH (16:32)
[2017-07-17] MEDS: FAMOTIDINE 20 MG TAB PO SCH (23:14)
[2017-07-17] MEDS: traZODone 50 MG TAB PO SCH (23:15)
[2017-07-18] MEDS: LIDOCAINE 5% 1 EA PATCH TD SCH ×2 (04:16→13:56)
[2017-07-18] MEDS: oxyCODONE IR 5 MG TAB PO PRN ×2 (04:16→15:34)
[2017-07-18] MEDS: GABAPENTIN 400 MG CAP PO SCH ×3 (09:00→20:58)
[2017-07-18] MEDS: ESCITALOPRAM OXALATE 10 MG TAB PO SCH (09:00)
[2017-07-18] MEDS: SENNOSIDES/DOCUSATE SODIUM TAB PO SCH ×2 (09:01→20:57)
[2017-07-18] MEDS: POTASSIUM CL 10 MEQ TAB PO SCH (09:01)
[2017-07-18] MEDS: FOLIC ACID 1 MG TAB PO SCH (09:01)
[2017-07-18] MEDS: POLYETHYLENE GLYCOL 3350 17 GM PKT PO SCH (09:02)
[2017-07-18] MEDS: FUROSEMIDE 20 MG TAB PO SCH (09:02)
[2017-07-18] MEDS: clonazePAM 0.5 MG TAB PO SCH (09:02)
[2017-07-18] MEDS: ACETAMINOPHEN 325 MG TAB PO SCH ×3 (09:02→20:57)
[2017-07-18] MEDS: Glatiramer Acetate [Copaxone] 20 MG SQ SCH (09:03)
--- NOTE | 2017-07-18 11:03 | GCON ---
[f rep st] CONSULTATION ORTHOPEDIC CONSULTATION. DATE OF CONSULTATION: 07/16/2017 REASON FOR CONSULTATION: Bilateral lower extremity pain and injury. HISTORY OF PRESENT ILLNESS: This is a 77-year-old female, with advanced multiple sclerosis, who pres ented to the emergency department on the evening of July 15 from her assisted living at [facility]. There are some conflicting reports as to how the patient's symptoms began. The patient rep orts falling; however, the daughter believes there was trauma that occurred during a transfer at the nursing facility. The patient is wheelchair-bound. They believe this event happened on Tuesday, Jul. She continued to have pain throughout the next few days, until the daughter insisted she come for further evaluation and x-rays. The patient is able to provide her own history. She denies head trauma or loss of consciousness. She is, however, on home oxygen and has an indwelling suprapub ic catheter. Otherwise, she denies fevers, chills, chest pain, shortness of breath, nausea, vomiting . She does admit to some slight decrease in sensation, bilateral lower extremities. Denies headache s, dizziness, or worsened blurred vision. PAST MEDICAL HISTORY: As above. Multiple sclerosis; she also has a history of DVT, also with freque nt respiratory infections and urinary tract infections. ALLERGIES: Include clindamycin and sulfa. MEDICATIONS: Include baclofen, famotidine, gabapentin, DuoNeb, oxycodone IR, polyethylene glycol, po tassium chloride, Senokot, acetaminophen, Cepacol, Dulcolax, calcium carbonate, vitamin D3, Lexapro, fluconazole, folate, Lasix, hydrocortisone cream, milk of magnesia, Zofran, artificial tears, Compazi ne, sodium chloride, Coumadin, clonazepam, fentanyl patch, Robitussin, trazodone, and Copaxone. REVIEW OF SYSTEMS: As above, and 10-point review of systems is otherwise negative. PHYSICAL EXAMINATION: GENERAL: The patient appears well nourished. Alert and oriented x3. HEENT: She has white sclerae, moist mucous membranes. PULMONARY: No respiratory distress, and easy breath ing. MUSCULOSKELETAL: The patient's bilateral lower extremities are in long leg splints. She is ab le to wiggle her toes slightly. She has a brisk capillary refill. Equally, and generally mildly, di minished sensation in the lower extremities throughout the deep peroneal, superficial peroneal, and p lantar nerves. She has bilateral knee contractures from several years of being nonambulatory. She h as no calf pain or tenderness to palpation about her knee. Tenderness to palpation just proximal to the ankle joint bilaterally. LABORATORY DATA: Reviewed, revealing no severe abnormalities. INR is 1.96. IMAGING: Reviewed. X-rays of the bilateral tib-fibs reveal severe osteoporosis with distal-third ti martha and fibula fractures. The left tib-fib fracture is an oblique, minimally displaced, extra-articu lar fracture. The right x-ray does appear to have an intra-articular component, with 1-2 mm of stepo ff/displacement. The right is also an oblique, distal-third tibia and fibula fracture with no intra- articular involvement, mildly displaced. ASSESSMENT AND PLAN: A 77-year-old female, with advanced multiple sclerosis and history of deep vein thrombosis, on Coumadin, with severe osteoarthrosis and bilateral distal-third tibia and fibula frac tures. 1. Bilateral tibia-fibula fractures. Recommend nonweightbearing and nonoperative treatment in prolo nged immobilization. The patient is a poor surgical candidate, with severe osteoporosis, nonambulato ry, and on chronic warfarin. Recommend physical therapy and extreme caution with transfers. She is not to remove the splints. 2. Severe osteoporosis. Recommend followup with primary care physician for consideration of bisphos phonate or teriparatide use. 3. Defer medical management to a hospitalist. The patient will follow up with me in 1-2 weeks for repeat x-rays and possible change of her splints. Discussion was had with the patient's daughter. The patient herself also expressed understanding. Questions were answered. /[id number]/MODL
[2017-07-18] MEDS ORDERED: fentaNYL 75 MCG PATCH TD SCH (12:30)
--- NOTE | 2017-07-18 13:17 | HOSPPROG ---
Hospitalist Progress Note Assessment/Plan: 77 yo F w/ advanced MS and hx DVT on warfarin presents with bilateral tib/fib fractures after a fall. D/W CM. Plan: # Bilateral tib/fib fractures - - Occurred from fall during a transfer 3 days prior to admission. - Patient is wheelchair bound at baseline but experiencing significant pain at this time. - Oxycodone, for pain control. No morphine per daughter. Started long acting oxy as well as IR - Orthopedic service aware, appreciate Dr Vitale consult. - Rec conservative care # MS - - Advanced disease, wheelchair bound with suprapubic catheter in place. - Lives at [facility]. - Family does not want her to go back there at this time - Not interested in palliative either - catheter changed 07/18 #. Hx DVT - - On warfarin, INR 1.9 on admission. - Cont coumadin #. CHRF - - On 2-4 L/min O2 chronically, presumably 2/2 known emphysema. Currently at baseline. Diet - Regular Code - Full Ppx - SCDs Dispo - unclear, daughter looking for facility Needs further evaluation and plan of care PT/OT High risk for respiratory complications and/or clotting given decreased mobility. Subjective: Feeling better today. Still having some pain. Objective: Vital Signs Temp Pulse Resp BP Pulse Ox 37.0 C 87 16 131/64 H 94 07/18/17 07:46 07/18/17 07:46 07/18/17 07:46 07/18/17 07:46 07/18/17 07:46 07/17/17 07/18/17 07/19/17 05:59 05:59 05:59 Intake Total 240 Output Total 0 150 Balance 240 -150 PT 22.4 SEC (12.0-15.0) H 07/15/17 22:40 INR 1.96 (0.83-1.16) H 07/15/17 22:40 - Physical Exam Constitutional: chronically ill appearing, uncomfortable Eyes: PERRL, anicteric sclera Ears, Nose, Mouth, Throat: moist mucous membranes, hearing normal Cardiovascular: No JVD, No edema Respiratory: no respiratory distress, reduced air movement Gastrointestinal: No tenderness, No ascites Genitourinary: other (suprapubic) Skin: warm, No mottled Musculoskeletal: pain with ROM, generalized weakness Psychiatric: not anxious, not encephalopathic, poor memory ICD10 Worksheet Patient Problems: Problems Problem Status Onset Bilateral tibial fractures Acute Acute lower urinary tract infection Active Infection due to resistant organism Active Fecal impaction Acute Pneumonia Acute ESBL (extended spectrum beta-lactamase) producing bacteria infection Acute 04/18
[2017-07-18 14:04] LABS: INR 2.67 (0.83-1.16); PROTIME(PATIENT) 28.7 SEC (12.0-15.0)
[2017-07-18] MEDS: WARFARIN SODIUM 3 MG TAB PO SCH (15:35)
--- NOTE | 2017-07-18 16:31 | ASMTCMCOM ---
CM Note CM Note Notes: PT is recommending pt return to LTC as there are no real goals for pt to be in SNF 2/2 her MS and NWB status. PT currently working with pt on feeding herself. Donna from [facility] was here today and said it's possible they would accept pt but it would be a very short rehab stay. Daughter Jessica [phone] toured [facility] and does not think it would be a good fit for her mother as there didn't appear to be much activity or stimulation. CM had 3 or 4 conversations with Jessica today about what happened at [facility] and pt's future LTC stay. She asked for a referral to be sent to [facility] in [place]. She is considering transferring her mother there for LTC initially private pay and then to transition to Medicaid. She is hopeful they will accept her for short term rehab as well. APS came in today to interview pt. Jessica does not want her mother to return to at this time, or ever, depending on how the incident is resolved. Date Signed: 07/18/2017 04:30 PM Electronically Signed By:MARKUS Rios
[2017-07-18] MEDS: traZODone 50 MG TAB PO SCH (20:56)
[2017-07-18] MEDS: FAMOTIDINE 20 MG TAB PO SCH (20:58)
[2017-07-19] MEDS: LIDOCAINE 5% 1 EA PATCH TD SCH ×2 (01:55→14:24)
[2017-07-19] MEDS: oxyCODONE IR 5 MG TAB PO PRN ×5 (01:55→23:27)
[2017-07-19 05:38] LABS: INR 2.96 (0.83-1.16); PROTIME(PATIENT) 31.2 SEC (12.0-15.0)
[2017-07-19] MEDS: FOLIC ACID 1 MG TAB PO SCH (08:11)
[2017-07-19] MEDS: SENNOSIDES/DOCUSATE SODIUM TAB PO SCH ×2 (08:11→19:48)
[2017-07-19] MEDS: GABAPENTIN 400 MG CAP PO SCH ×3 (08:11→21:24)
[2017-07-19] MEDS: ACETAMINOPHEN 325 MG TAB PO SCH (08:11)
[2017-07-19] MEDS: clonazePAM 0.5 MG TAB PO SCH (08:12)
[2017-07-19] MEDS: FUROSEMIDE 20 MG TAB PO SCH (08:12)
[2017-07-19] MEDS: POTASSIUM CL 10 MEQ TAB PO SCH (08:12)
[2017-07-19] MEDS: ESCITALOPRAM OXALATE 10 MG TAB PO SCH (08:13)
[2017-07-19] MEDS: POLYETHYLENE GLYCOL 3350 17 GM PKT PO SCH (08:14)
[2017-07-19] MEDS: Glatiramer Acetate [Copaxone] 20 MG SQ SCH (09:13)
--- NOTE | 2017-07-19 10:12 | HOSPPROG ---
Hospitalist Progress Note Assessment/Plan: 77 yo F w/ advanced MS and hx DVT on warfarin presents with bilateral tib/fib fractures after a fall. Today is my 1st encounter with the patient. Chart reviewed. * bilateral tib-fib fractures -appreciate Orthopedic's seeing Marie -to be nonweightbearing and to not remove the splints -at baseline the patient is wheelchair-bound -avoid morphine per family -continued pain management -patient on fentanyl patch,will avoid scheduled long acting -will increase Tylenol dose and keep it scheduled * advanced MS -patient is wheelchair bound -has a suprapubic catheter in place that was changed on July 18 -[facility] that [facility] -per previous note the family does not want her returning there -not interested in any type of palliative care * severe osteoporosis -patient may benefit from a biphosphate/will need outpatient follow-up * DVT history -INR is 2.96 * acute hypoxemic respiratory failure -is on chronic oxygen secondary to emphysema * DVT prophylaxis. On oral anticoagulation * plan. Case management looking at placement Subjective: Marie is c/o pain to her legs. Objective: Vital Signs Temp Pulse Resp BP Pulse Ox 37.0 C 97 16 122/79 H 97 07/19/17 08:00 07/19/17 08:00 07/19/17 08:00 07/19/17 08:00 07/19/17 08:00 07/18/17 07/19/17 07/20/17 05:59 05:59 05:59 Intake Total 240 850 250 Output Total 0 750 Balance 240 100 250 PT 31.2 SEC (12.0-15.0) H 07/19/17 04:26 INR 2.96 (0.83-1.16) H 07/19/17 04:26 - Physical Exam Constitutional: appears nourished, chronically ill appearing, uncomfortable Eyes: PERRL Ears, Nose, Mouth, Throat: hearing normal Cardiovascular: regular rate and rhythym Respiratory: no respiratory distress, reduced air movement Skin: warm Musculoskeletal: muscular tenderness, generalized weakness Neurologic: AAOx3 Psychiatric: interacting appropriately, not anxious ICD10 Worksheet Patient Problems: Problems Problem Status Onset Bilateral tibial fractures Acute Acute lower urinary tract infection Active Infection due to resistant organism Active ESBL (extended spectrum beta-lactamase) producing bacteria infection Acute 04/18 Fecal impaction Acute Pneumonia Acute
[2017-07-19] MEDS ORDERED: ACETAMINOPHEN 325 MG TAB PO SCH (11:30)
[2017-07-19] MEDS ORDERED: FLU VACC QS 2017-18 (3YR+)/PF 0.5 ML SYR (FLUARIX QUAD) IM ONE (11:44)
[2017-07-19] MEDS: ACETAMINOPHEN 500 MG TAB PO SCH ×3 (12:24→21:24)
[2017-07-19] MEDS: WARFARIN SODIUM 3 MG TAB PO SCH (15:41)
[2017-07-19] MEDS: WARFARIN SODIUM 2.5 MG TAB PO SCH (15:53)
--- NOTE | 2017-07-19 16:14 | ASMTCMCOM ---
CM Note CM Note Notes: No response from [facility] in [employer], VM left for admissions. [facility] is willing to speak w dghtr if interested in LTC there, cannot accept pt for SNF. Date Signed: 07/19/2017 04:13 PM Electronically Signed By:MARKUS Estevez
[2017-07-19] MEDS: FAMOTIDINE 20 MG TAB PO SCH (19:48)
[2017-07-19] MEDS: traZODone 50 MG TAB PO SCH (19:48)
[2017-07-19] MEDS: oxyCODONE ORAL SOLUTION 10 MG/0.5 ML UDSYR PO PRN (21:23)
[2017-07-20] MEDS: oxyCODONE ORAL SOLUTION 10 MG/0.5 ML UDSYR PO PRN ×2 (01:23→04:42)
[2017-07-20] MEDS: LIDOCAINE 5% 1 EA PATCH TD SCH (01:49)
[2017-07-20] MEDS ORDERED: FUROSEMIDE 40 MG/4 ML VIAL IVP ONE (02:12)
[2017-07-20] MEDS ORDERED: FUROSEMIDE 20 MG/2 ML VIAL ONE (02:18)
--- NOTE | 2017-07-20 02:18 | HOSPPROG ---
Hospitalist Progress Note Assessment/Plan: Hospitalist Night Float Note Paged by RN. Patient with increasing oxygen needs overnight from 3-4 liters NC to 15 oxymask. s/p neb and down to 10 lpm. Patient fair/poor historian. denies chest pain/palpitations. she does note chest congestion/cough and possibly some shortness of air but having some difficulty describing symptoms as such. Patient on coumadin with INR yesterday 2.98 for history of DVT. Patient admitted following fall and tib/fib fracture bilaterally. CXR ordered stat and reviewed myself showing diffuse congestion. Plan - IV lasix now. echo in AM. previous echo available for review from 2009 without evidence of CHF. mild MR. patient INR already therapeutic but less likely PE. hx noting emphysema. neb tx prn but patient without wheezing on exam. Patient tachy 90s-100s baseline 60s likely related to hypoxia to 80% and albuterol tx contributing also some. On continuous tele and pulse ox. Discussed with RN. 20 minutes critical care time this AM. Objective: Vital Signs Temp Pulse Resp BP Pulse Ox 37.0 C 78 18 101/55 L 95 07/19/17 23:59 07/19/17 23:59 07/19/17 23:59 07/19/17 23:59 07/19/17 23:59 07/18/17 07/19/17 07/20/17 05:59 05:59 05:59 Intake Total 240 850 750 Output Total 0 750 300 Balance 240 100 450 PT 31.2 SEC (12.0-15.0) H 07/19/17 04:26 INR 2.96 (0.83-1.16) H 07/19/17 04:26 ICD10 Worksheet Patient Problems: Problems Problem Status Onset Bilateral tibial fractures Acute Acute lower urinary tract infection Active Infection due to resistant organism Active ESBL (extended spectrum beta-lactamase) producing bacteria infection Acute 04/18 Fecal impaction Acute Pneumonia Acute
[2017-07-20] MEDS: oxyCODONE IR 5 MG TAB PO PRN ×2 (02:29→09:10)
[2017-07-20 05:11] LABS: INR 3.62 (0.83-1.16); PROTIME(PATIENT) 36.7 SEC (12.0-15.0)
[2017-07-20] MEDS: SENNOSIDES/DOCUSATE SODIUM TAB PO SCH ×2 (08:55→22:42)
[2017-07-20] MEDS: POTASSIUM CL 10 MEQ TAB PO SCH (08:58)
[2017-07-20] MEDS: GABAPENTIN 400 MG CAP PO SCH ×3 (09:01→22:43)
[2017-07-20] MEDS: ESCITALOPRAM OXALATE 10 MG TAB PO SCH (09:03)
[2017-07-20] MEDS: ACETAMINOPHEN 500 MG TAB PO SCH ×3 (09:04→22:43)
[2017-07-20] MEDS: FOLIC ACID 1 MG TAB PO SCH (09:10)
[2017-07-20] MEDS: FUROSEMIDE 20 MG TAB PO SCH (09:11)
[2017-07-20] MEDS: clonazePAM 0.5 MG TAB PO SCH (09:12)
[2017-07-20] MEDS: POLYETHYLENE GLYCOL 3350 17 GM PKT PO SCH (09:21)
[2017-07-20] MEDS: Glatiramer Acetate [Copaxone] 20 MG SQ SCH (10:05)
--- NOTE | 2017-07-20 10:48 | HOSPPROG ---
Hospitalist Progress Note Assessment/Plan: 77 yo F w/ advanced MS and hx DVT on warfarin presents with bilateral tib/fib fractures after a fall. Reviewed her care with Dr Welsh who say her last nigh. * bilateral tib-fib fractures -appreciate Orthopedic's seeing Marie -to be nonweightbearing and to not remove the splints -at baseline the patient is wheelchair-bound -avoid morphine per family -continued pain management -patient on fentanyl patch,will avoid scheduled long acting -will increase Tylenol dose and keep it scheduled * advanced MS -patient is wheelchair bound -has a suprapubic catheter in place that was changed on July 18 -[facility] that [facility] -per previous note the family does not want her returning there -not interested in any type of palliative care *Acute hypoxemia -given a dose of Lasix last night with improvement -BNP is stable, echo is pending -reviewed chest xray which didn't show pulm edema, she has a large hiatal hernia , underlying emphysema, increase in interstitial opacities * severe osteoporosis -patient may benefit from a biphosphate/will need outpatient follow-up *large hiatal hernia -PPI, sitting up with all meals * DVT history -INR is supratherapeutic at 3.62/will hold coumadin * acute hypoxemic respiratory failure -is on chronic oxygen secondary to emphysema * DVT prophylaxis. On oral anticoagulation * plan. cont current treatment, plan of care discussed with patient's daughter , [place] *was asked [employer] de[employer] to sign form in regards to injuries (investigation of the accident)/ consent obtained by family by 2 RN's/ patient medicated for pain and was unable to give consent/ reviewed this w hospital chimney mechanic and was ok to sign forms Subjective: Marie says her legs hurt. Objective: Vital Signs Temp Pulse Resp BP Pulse Ox 36.7 C 91 14 133/69 H 95 07/20/17 04:00 07/20/17 08:58 07/20/17 08:58 07/20/17 08:58 07/20/17 08:58 07/19/17 07/20/17 07/21/17 05:59 05:59 05:59 Intake Total 850 1050 Output Total 750 1150 Balance 100 -100 PT 36.7 SEC (12.0-15.0) H 07/20/17 04:24 INR 3.62 (0.83-1.16) H 07/20/17 04:24 - Physical Exam Constitutional: chronically ill appearing, uncomfortable, No not in pain Eyes: PERRL Ears, Nose, Mouth, Throat: hearing normal Respiratory: no respiratory distress, reduced air movement (bibasilar) Skin: warm Musculoskeletal: muscular tenderness, generalized weakness Neurologic: other (alert, but very drowsy) Psychiatric: interacting appropriately ICD10 Worksheet Patient Problems: Problems Problem Status Onset Bilateral tibial fractures Acute Acute lower urinary tract infection Active Infection due to resistant organism Active ESBL (extended spectrum beta-lactamase) producing bacteria infection Acute 04/18 Fecal impaction Acute Pneumonia Acute
[2017-07-20] MEDS ORDERED: NS 250 ML IV ONE (13:50)
[2017-07-20] MEDS ORDERED: NALOXONE HCL 0.4 MG/ML INJ ONE (14:04)
--- NOTE | 2017-07-20 14:28 | ECHO ---
[email or web address] [address] [address] Main: [phone] Fax: Transthoracic Echocardiogram Name: PHIL IRENE MR#: [id number] Study Date: 07/20/2017 Study Time: 10:22 AM Date of : 1940 Age: 77 year(s) Height: 157.5 cm (62 in.) Weight: 64.86 kg (143 lb.) BSA: 1.66 m2 Gender: Female Examination: Echo Indication: Cardiac: dyspnea, hypoxia Image Quality: Technically Difficult Contrast: Requested by: Rhea Welsh BP: 133 mmHg/69 mmHg Heart Rate: Rhythm: Indication: Cardiac: dyspnea, hypoxia Procedure Staff Manager Cafe: Janey Neil Reading Physician: Ibeth Abbott Requesting Provider: Conclusions: Normal size left ventricle. Normal global systolic LV function. EF is 69 %. No regional wall motion abnormality. Mildly dilated right ventricle. Normal RV function. Moderate mitral annular calcification. There is no significant mitral valve regurgitation. No mitral stenosis is present. Mild aortic cusp calcification is noted. No aortic valve stenosis is present. Pulmonary artery pressure is not obtained due to inadequate TR jet. Compared with 08/21/2010 RV now mildly dilated. Other findings are similar Measurements: Chambers Valvular Assessment AV/MV Valvular Assessment TV/PV Normal Normal Normal Name Value Range Name Value Range Name Value Range Ao Esther (MM): 2.6 cm (2.2 cm-3.7 AV Vmax: 1.26 m/s (1 m/s-1.7 PV Vmax: 0.54 m/s (0.6 m/s-0.9 cm) m/s) m/s) IVSd (2D): 0.6 cm (0.6 cm-1.1 AV maxP mmHg ( - ) PV PGmax: 1 mmHg ( - ) cm) LVOT Vmax: 1.09 m/s (0.7 m/s-1.1 LVDd (2D): 3.7 cm (3.9 cm-5.3 m/s) cm) MV E Vmax: 0.71 m/s ( - ) LVDs (2D): 2.1 cm (2.1 cm-4 MV A Vmax: 1.16 m/s ( - ) cm) MV E/A: 0.61 ( - ) LVPWd (2D): 0.9 cm ( - ) MV meanP mmHg ( - ) LVEF (MOD4): 69 % (>=55 %) Continued Measurements: Patient: PHIL IRENE Study Date: 07/20/2017 Page 1 of 2 10:22 AM Chambers Valvular Assessment AV/MV Name Value Name Value LADs Lon.9 cm MV DecTime: 208 m/s LA Area: 10.4 cm2 MV E/E' Septal: 25.10 LA Volume: 24 ml MV E/E' Lateral: 12.60 LA Volume Index: 14.5 ml/m2 MV VTI: 23.80 cm Additional Vessels Name Value Ao Ascendin.0 cm Findings: Left Ventricle: Normal size left ventricle. No LV hypertrophy. Normal global systolic LV function. EF is 69 %. No regional wall motion abnormality. Right Ventricle: Mildly dilated right ventricle. Normal RV function. Left Atrium: The left atrium is normal in size. Right Atrium: The right atrium is normal in size. Mitral Valve: There is mild thickening of the mitral valve leaflets. Moderate mitral annular calcification. There is no significant mitral valve regurgitation. No mitral stenosis is present. Aortic Valve: The aortic valve is tri-leaflet. Mild aortic cusp calcification is noted. There is no aortic valve regurgitation. No aortic valve stenosis is present. Tricuspid Valve: The tricuspid valve is normal in appearance and function. There is no tricuspid valve regurgitation. Pulmonary artery pressure is not obtained due to inadequate TR jet. Pulmonic Valve: Pulmonary valve not well visualized. Aorta: The aorta is normal. Normal size aortic root measuring 2.6 cm. Normal size ascending aorta measuring 3.0 cm. Pericardium: No pericardial effusion. (No Signature Object) Patient: PHIL IRENE Study Date: 07/20/2017 Page 2 of 2 10:22 AM [id number]
[2017-07-20] MEDS ORDERED: NALOXONE HCL 0.4 MG/ML INJ IVP ONE (14:30)
[2017-07-20] MEDS: PANTOPRAZOLE SODIUM 40 MG TAB PO SCH (14:47)
--- NOTE | 2017-07-20 15:35 | ASMTCMCOM ---
CM Note CM Note Notes: Clarissa Sharp [phone] reviewing pt for [facility] at [facility] in [place]. Although far from [place], family is considering this facility because of their approach to care. Spoke w pt son Armando [phone] and dghtr Mercy [phone], they recognize pt will likely not be accepted at a SNF for rehab but pt needs LTC and private pay. They expect pt private pay money will run out in approx. 2 years then LTC Mdcd. Armando and Mercy are touring [place] today. Also provided Armando w info on [facility], a facility specializing in MS pts (although it is in [place]). Family meeting w Tavon Weaver today. Family is not ruling out a return to [facility] ever but need time to assess the safety of a return to [facility]. [facility] reports there were concerns w [facility] prior to this and the care has declined the last month. [employer] investigating, child care center assistant director met w family at hospital today. Date Signed: 07/20/2017 03:34 PM Electronically Signed By:MARKUS Estevez
[2017-07-20] MEDS ORDERED: fentaNYL 75 MCG PATCH TD SCH (15:36)
[2017-07-20] MEDS ORDERED: fentaNYL 50 MCG PATCH TD SCH (16:00)
[2017-07-20] MEDS: IPRATROPIUM/ALBUTEROL 3 ML DEYVIAL IH SCH ×2 (16:13→22:51)
[2017-07-20 16:58] LABS: HEMATOCRIT 31.6 % (38.0-47.0); HEMOGLOBIN 10.7 g/dL (12.6-16.3)
[2017-07-20] MEDS ORDERED: oxyCODONE IR 5 MG TAB PO PRN (17:55)
[2017-07-20] MEDS ORDERED: KETOROLAC 15 MG/1 ML SDV IVP ONE (17:56)
[2017-07-20] MEDS ORDERED: KETOROLAC 30 MG/1 ML SDV IVP PRN (17:56)
[2017-07-20] MEDS: PATCH REMOVAL 1 EA PATCH TD SCH (17:57)
[2017-07-20 18:43] LABS: % IMMATURE GRANULYOCYTES 0.6 % (0.0-1.1); ABSOLUTE IMMATURE GRANULOCYTES 0.08 10^3/uL (0.00-0.10); ADD DIFF? NO; ADD MORPH? NO; ADD SCAN? NO; ATYPICAL LYMPHOCYTE FLAG 0 (0-99); FRAGMENT RBC FLAG 0 (0-99); HEMATOCRIT 31.7 % (38.0-47.0); LEFT SHIFT FLG 0 (0-99); LIPEMIA HEMOLYSIS FLAG 90 (0-99); MEAN CELL HEMOGLOBIN 33.5 pg (27.9-34.1); MEAN CELL HEMOGLOBIN CONCENTR. 34.7 g/dL (32.4-36.7); MEAN CELL VOLUME 96.6 fL (81.5-99.8); MEAN PLATELET VOLUME 9.9 fL (8.7-11.7); PLATELET CLUMPS FLAG 10 (0-99); PLATELET COUNT 245 10^3/uL (150-400); RED BLOOD CELL COUNT 3.28 10^6/uL (4.18-5.33); RED CELL DISTRIBUTION WIDTH 12.4 % (11.5-15.2)
[2017-07-20 19:09] LABS: ALANINE AMINOTRANSFERASE 18 IU/L (9-52); ALBUMIN 3.3 g/dL (3.5-5.0); ALKALINE PHOSPHATASE 109 IU/L (38-126); ANION GAP 8 mEq/L (8-16); ASPARTATE AMINOTRANSFERASE 22 IU/L (14-46); BILIRUBIN,TOTAL 0.5 mg/dL (0.1-1.4); BILIRUBIN-CONJUGATED 0.4 mg/dL (0.0-0.5); BILIRUBIN-UNCONJUGATED 0.1 mg/dL (0.0-1.1); CALCIUM 8.9 mg/dL (8.5-10.4); CARBON DIOXIDE 31 mEq/l (22-31); CHLORIDE 97 mEq/L (97-110); CREATININE 0.7 mg/dL (0.6-1.0); GLOMERULAR FILTRATION RATE > 60; GLUCOSE 107 mg/dL (70-100); SODIUM 136 mEq/L (134-144); TOTAL PROTEIN 6.5 g/dL (6.3-8.2)
[2017-07-20] MEDS ORDERED: ALBUMIN 5% 500 ML IV ONE (19:43)
[2017-07-20] MEDS ORDERED: ALTEPLASE 2 MG VIAL IVP PRN (19:45)
[2017-07-20] MEDS ORDERED: ERTAPENEM 1 GM in NS 100 ML IV ONE (19:50)
[2017-07-20] MEDS: NS 1,000 ML IV SCH (20:38)
[2017-07-20] MEDS ORDERED: PATCH REMOVAL 1 EA PATCH TD SCH ×2 (21:00)
[2017-07-20 21:06] LABS: INR 4.3 (0.83-1.16); PROTIME(PATIENT) 42.1 SEC (12.0-15.0)
[2017-07-20 21:07] LABS: APTT 82.2 SEC (23.0-38.0)
--- NOTE | 2017-07-20 22:09 | GCON ---
[f rep st] CONSULTATION PULMONARY CRITICAL CARE CONSULTATION. REASON FOR CONSULTATION: Abnormal mental status, hypoxemia, pain, multiple sclerosis. HISTORY: The patient is a 77-year-old who was admitted to the hospital on 07/15. She fell from a [place] [employer] lift at [facility] and was subsequently found to have bilateral tibial/fibular fractures distally. This occurred 3 days prior to her admission. The patient was seen in consultati on by Orthopedics. Surgery was not felt to be needed. She is nonambulatory. A contributing factor was also felt to be severe osteoporosis. The patient has been treated for pain. Today, she was increasingly somnolent secondary to pain medic ations. She was given Narcan with improvement and transferred to the intensive care unit. Oxygen re quirements had increased from 5 L to 10-15 L with her oversedation. The patient does have a history of chronic all over body pain. She was on a fentanyl patch at the [facility]. The Duragesic patch was at 75 mcg every 3 days. It is unclear to me whether this was re cently increased secondary to her lower extremity fractures. She was on multiple other medications o n admission as listed in the MAR. These included Neurontin, low-dose clonazepam, and trazodone. SOCIAL HISTORY: The patient is a resident of [facility]. She has a very supportive family. She did smoke cigarettes in the past. ALLERGIES: Clindamycin, sulfa preparations. FAMILY HISTORY: Noncontributory. REVIEW OF SYSTEMS: A 10-point review of systems is remarkable for a long history of multiple scleros is, dating back approximately 35 years. This has been very gradually progressive. However, over the last few years, she has been fairly stable. Her course has been complicated by recurrent aspiration with aspiration pneumonia, urinary tract infections and a suprapubic catheter, depression, constipat ion, chronic pain that is "all over," COPD/emphysema with reactive airways disease, cutaneous and cut aneous fungal infections. PHYSICAL EXAMINATION: GENERAL: Reveals a woman who is lying on her side in bed. Family is at her [facility]. She is responsive and able to answer questions appropriately. She denies significant leg pa in at this time, only generalized chronic all over body pain, which is not necessarily acute or more severe than her baseline. VITAL SIGNS: Blood pressure is approximately 110/65, heart rate 105 with sinus rhythm on the monitor. Respiratory rate is 20. She is afebrile. She is currently on 10 L wit h saturations in the mid 90s. HEENT: Remarkable for a simple mask being in place. Mucous membranes appear somewhat dry. CHEST: Reveals decreased excursions and breath sounds bilaterally. However, the chest is clear. There are no rhonchi, no wheezes, no significant rales or evidence of consolidat ion. However, she is moving little air secondary to respiratory muscle weakness. HEART: Tachycardi c. There is a systolic murmur present. Heart tones are somewhat distant. There are no obvious gall ops. ABDOMEN: Soft and nontender. Bowel sounds are diminished but present. GENITOURINARY: Suprap ubic catheter is in place with good urine output. EXTREMITIES: Remarkable for chronic changes. Low er extremities are splinted. These were not taken down. DATABASE: Chest x-ray shows bilateral increased lung markings with bronchial wall thickening and ovi e infiltrates, primarily at the bases, somewhat in the apical right lung. Findings, however, are nitish y similar to previous x-rays from previous admissions. There does not appear to be any acute infiltr ate or worsening. White blood cell count is 12,900, hematocrit 31.7. Platelets are normal. INR on Coumadin is 3.62. An arterial blood gas has not yet been obtained. Basic metabolic panel, liver fun ctions studies, and total protein are within normal limits. Albumin is borderline low. ASSESSMENT: 1. Abnormal mental status. This was associated with hypoventilation and increased hypoxemia, in par t secondary to oversedation. She did improve significantly with the administration of Narcan. Narco tics have been cut back. 2. Hypoxemic respiratory failure. This is acute on chronic. She does have a history of known aspir ation, and despite there being no acute changes on x-ray, an aspiration event with emerging pneumonia cannot be absolutely excluded. It would seem reasonable to cover the patient for this for now. 3. Borderline blood pressures. There is no evidence of significant sepsis at this time. I believe her borderline low pressures and current findings are secondary to increased narcotic administration. 4. History of aspiration/aspiration pneumonia. Current x-ray does not show a definite acute infiltr ate or pneumonia. However, she could easily hide infiltrates secondary to her abnormal x-ray at base line. She is n.p.o. currently except for medications. This is appropriate in light of her decreased mental status. Narcan has helped, and may need to be again given. Narcotics will be cut back. 5. Status post bilateral tibial/fibular fractures. These are nonsurgical and have resulted in incre ased pain. However, at this point in time, she is not complaining of leg pain, more her generalized chronic total body pain and discomfort. PLAN AND RECOMMENDATIONS: The patient will be kept in the intensive care unit. Laboratory and chest x-ray will be followed. A PICC line will be requested. Her fentanyl patch will be cut back to 25 m cg every 3 days starting tomorrow. Oxycodone IR will be significantly decreased and used primarily f or pain related to increased mobilization. Oral oxycodone will be continued as currently written for . Lidoderm patches will be continued. Toradol will be trialed. Coumadin will be continued, INR fol lowed. Her other usual medications will be continued. Ertapenem will be considered if fevers develo p as I cannot absolutely rule out a new aspiration event. Bronchodilator therapies will be continued . Further plans and recommendations will be made based on her progress over the next 12-24 hours. /[id number]/MODL
[2017-07-20] MEDS: FAMOTIDINE 20 MG TAB PO SCH (22:42)
[2017-07-20] MEDS: traZODone 50 MG TAB PO SCH (22:43)
[2017-07-21] MEDS ORDERED: NS 250 ML IV ONE (00:45)
[2017-07-21] MEDS: NS 1,000 ML IV SCH ×2 (04:53→18:01)
[2017-07-21 06:20] LABS: % IMMATURE GRANULYOCYTES 0.3 % (0.0-1.1); ABSOLUTE IMMATURE GRANULOCYTES 0.02 10^3/uL (0.00-0.10); ADD DIFF? NO; ADD MORPH? NO; ADD SCAN? NO; ATYPICAL LYMPHOCYTE FLAG 0 (0-99); FRAGMENT RBC FLAG 0 (0-99); LEFT SHIFT FLG 0 (0-99); LIPEMIA HEMOLYSIS FLAG 80 (0-99); MEAN CELL HEMOGLOBIN 32.4 pg (27.9-34.1); MEAN CELL HEMOGLOBIN CONCENTR. 33.3 g/dL (32.4-36.7); MEAN CELL VOLUME 97.1 fL (81.5-99.8); MEAN PLATELET VOLUME 9.4 fL (8.7-11.7); PLATELET CLUMPS FLAG 20 (0-99); PLATELET COUNT 179 10^3/uL (150-400); RED BLOOD CELL COUNT 2.78 10^6/uL (4.18-5.33); RED CELL DISTRIBUTION WIDTH 12.5 % (11.5-15.2)
[2017-07-21] MEDS: IPRATROPIUM/ALBUTEROL 3 ML DEYVIAL IH SCH ×4 (06:25→23:29)
[2017-07-21 06:30] LABS: INR 4.43 (0.83-1.16); PROTIME(PATIENT) 43.1 SEC (12.0-15.0)
[2017-07-21 06:34] LABS: ANION GAP 7 mEq/L (8-16); CALCIUM 8.4 mg/dL (8.5-10.4); CARBON DIOXIDE 30 mEq/l (22-31); CHLORIDE 103 mEq/L (97-110); CREATININE 0.6 mg/dL (0.6-1.0); GLOMERULAR FILTRATION RATE > 60; GLUCOSE 80 mg/dL (70-100); POTASSIUM 3.6 mEq/L (3.5-5.2); SODIUM 140 mEq/L (134-144)
[2017-07-21] MEDS ORDERED: fentaNYL 25 MCG PATCH TD SCH (08:00)
[2017-07-21] MEDS: ACETAMINOPHEN 500 MG TAB PO SCH ×3 (09:21→20:29)
[2017-07-21] MEDS: GABAPENTIN 400 MG CAP PO SCH ×2 (09:21→17:44)
[2017-07-21] MEDS: clonazePAM 0.5 MG TAB PO SCH (09:21)
[2017-07-21] MEDS: ESCITALOPRAM OXALATE 10 MG TAB PO SCH (09:23)
[2017-07-21] MEDS: LIDOCAINE 5% 1 EA PATCH TD SCH (09:38)
[2017-07-21] MEDS: FOLIC ACID 1 MG TAB PO SCH (09:40)
--- NOTE | 2017-07-21 11:05 | PDINTPN ---
Rand Butter Progress Note Assessment/Plan: Assessment: Bilateral lower extremity tib-fib fractures. Nonsurgical. Splinted. The patient does have associated pain as would be expected. This does not appear to be excessive or intractable at this time. Current therapies appear to be appropriate. An epidural catheter her would not seem to be indicated currently. Multiple sclerosis, chronic. This is associated with chronic pain in addition to her fracture pain as outlined above. Again, current therapies appear to be appropriate. History of aspiration and aspiration pneumonia. X-ray is not normal but there is no obvious new infiltrate however cannot rule out a small aspiration pneumonia. On Invanz. She was febrile last night, white blood cell count is somewhat elevated. On bronchopulmonary therapies as well. Nutrition: To restart oral feedings again with precautions today. She is on multiple medications as well with dysphasia 3 precautions. I will change some of her medications temporarily to intravenous preparations. Altered mental status: Remains lethargic in part secondary to medications. Balancing this with adequate pain control is somewhat challenging. Anemia: Hematocrit 27 today, down from approximately 40 on admission. On chronic full-dose anticoagulation with Coumadin. There is no evidence of active bleeding. Metabolic: No issues identified. DVT prophylaxis/anticoagulation. INR is high, over 4. She is on chronic Coumadin. On hold currently. GI prophylaxis: Pantoprazole. Plan: Continue supportive care will be maintained in the intensive care unit. Adequate pain control will be given comma realizing it will not be able to take away all her pain. Epidural catheter does not appear to be indicated at this time. Intravenous fluids will be continued. She will start to take some food and medications today with precautions. Chest x-ray and laboratory will be followed. Repeat H&H later today. 40 minutes of critical care time spent directly with the patient. Discussed issues with the patient's family, nursing, hospitalist, and the ICU multi disciplinary team. Subjective: Doing okay. Slightly somnolent but responsive. She does have some lower extremity pain as well as her chronic general body pain however neither appears to be see in double at this time. Objective: Vital Signs Temp Pulse Resp BP Pulse Ox 37.2 C 94 14 120/50 L 95 07/21/17 07:44 07/21/17 07:44 07/21/17 07:44 07/21/17 07:44 07/21/17 07:44 Laboratory Results 07/21/17 05:45 07/21/17 05:45 07/20/17 07/21/17 07/22/17 05:59 05:59 05:59 Intake Total 1050 Output Total 1150 1425 Balance -100 -1425 PT 43.1 SEC (12.0-15.0) H 07/21/17 05:45 INR 4.43 (0.83-1.16) H 07/21/17 05:45 Laboratory Tests 07/20/17 07/21/17 07/21/17 20:30 05:45 05:45 PT 43.1 H INR 4.43 H VBG Lactic Acid 1.8 Calcium 8.4 L CXR: None today Physical Exam - Physical Exam General Appearance: other (Somnolent, arousable, sponsor) EENT: PERRL/EOMI, other (Nasal cannula at 4-5 L) Neck: normal inspection (No JVD) Respiratory: lungs clear (Anteriorly), decreased breath sounds (At bases), rales (Few scattered), No rhonchi, No wheezing Cardiac/Chest: regular rate, rhythm Abdomen: normal bowel sounds, non-tender, soft, other (Suprapubic catheter in place) Skin: warm/dry, pallor Extremities: other (Both lower extremity splinted comma Efren wrap), No swelling Neuro/Psych: cognition abnormalities (Somewhat somnolent but appears oriented when aroused, probably near baseline), No no motor/sensory deficits ICD10 Worksheet Patient Problems: Problems Problem Status Onset Bilateral tibial fractures Acute Acute lower urinary tract infection Active Infection due to resistant organism Active Fecal impaction Acute Pneumonia Acute ESBL (extended spectrum beta-lactamase) producing bacteria infection Acute 04/18
[2017-07-21] MEDS: POLYETHYLENE GLYCOL 3350 17 GM PKT PO SCH (11:45)
[2017-07-21] MEDS: POTASSIUM CL 10 MEQ TAB PO SCH (11:45)
[2017-07-21] MEDS: fentaNYL 25 MCG PATCH TD SCH (11:47)
--- NOTE | 2017-07-21 11:57 | ASMTCMCOM ---
CM Note CM Note Notes: Chart reviewed. Patient stat call from 3N. Improving today. Not yet ready for dc. Family in process of making decisions r/t discharge dispostions. CM to follow. Date Signed: 07/21/2017 11:56 AM Electronically Signed By:Nasra Sparks RN
[2017-07-21] MEDS: KETOROLAC 30 MG/1 ML SDV IVP SCH ×2 (12:30→17:02)
[2017-07-21] MEDS: SENNOSIDES/DOCUSATE SODIUM TAB PO SCH ×2 (12:40→20:30)
[2017-07-21] MEDS: Glatiramer Acetate [Copaxone] 20 MG SQ SCH (12:40)
[2017-07-21] MEDS: PANTOPRAZOLE SODIUM 40 MG in NS 100 ML IV SCH (14:17)
[2017-07-21] MEDS: FUROSEMIDE 20 MG TAB PO SCH (14:20)
[2017-07-21] MEDS: PANTOPRAZOLE SODIUM 40 MG TAB PO SCH (14:21)
[2017-07-21 17:18] LABS: HEMOGLOBIN 8.1 g/dL (12.6-16.3)
--- NOTE | 2017-07-21 17:51 | HOSPPROG ---
Hospitalist Progress Note Assessment/Plan: * Bilateral tib/fib fractures -continue splint (non-operative) -pain control is difficult -NWB - WC bound at baseline * Hypotension -resolved with IVF bolus * Anemia - worsening - continue to follow -? bleed into fracture * Advanced MS * Suprapubic catheter -chronic * Acute respiratory failure - suspect due to narcotics -improved with Narcan * Aspiration pneumonia -IV Invanz * Metabolic encephalopathy * h/o DVT -continue warfarin INR goal 2-3 * COPD with chronic respiratory failure - baseline 2-4L Subjective: no complaints currently, resting Objective: Vital Signs Temp Pulse Resp BP Pulse Ox 36.9 C 74 16 92/55 L 97 07/21/17 15:43 07/21/17 17:16 07/21/17 17:16 07/21/17 15:43 07/21/17 17:16 Laboratory Results 07/21/17 17:00 07/21/17 05:45 07/20/17 07/21/17 07/22/17 05:59 05:59 05:59 Intake Total 1050 Output Total 1150 1425 275 Balance -100 -1425 -275 PT 43.1 SEC (12.0-15.0) H 07/21/17 05:45 INR 4.43 (0.83-1.16) H 07/21/17 05:45 d/w Dr. Parker ICU rounds - started abx for aspiration PNA CXR - RUL infiltrate - Physical Exam Constitutional: no apparent distress, appears nourished, not in pain Cardiovascular: regular rate and rhythym, no murmur, rub, or gallop Respiratory: no respiratory distress, no rales or rhonchi, clear to auscultation Gastrointestinal: normoactive bowel sounds, soft, non-tender abdomen, no palpable masses Skin: no rashes or abrasions, no fluctuance, no induration Neurologic: No AAOx3 Psychiatric: encephalopathic, poor insight, poor judgement, No interacting appropriately, No agitated ICD10 Worksheet Patient Problems: Problems Problem Status Onset Bilateral tibial fractures Acute Acute lower urinary tract infection Active Infection due to resistant organism Active ESBL (extended spectrum beta-lactamase) producing bacteria infection Acute 04/18 Fecal impaction Acute Pneumonia Acute
[2017-07-21] MEDS: GABAPENTIN 300 MG CAP PO SCH ×2 (17:59→20:30)
[2017-07-21] MEDS: ERTAPENEM 1 GM in NS 100 ML IV SCH (20:29)
[2017-07-21] MEDS: PATCH REMOVAL 1 EA PATCH TD SCH (20:30)
[2017-07-21] MEDS: traZODone 50 MG TAB PO SCH (20:30)
[2017-07-22] MEDS: NS 1,000 ML IV SCH (01:42)
[2017-07-22] MEDS: KETOROLAC 30 MG/1 ML SDV IVP SCH ×3 (02:39→13:00)
[2017-07-22] MEDS: IPRATROPIUM/ALBUTEROL 3 ML DEYVIAL IH SCH ×4 (05:04→23:05)
[2017-07-22 05:24] LABS: % IMMATURE GRANULYOCYTES 0.2 % (0.0-1.1); ABSOLUTE IMMATURE GRANULOCYTES 0.01 10^3/uL (0.00-0.10); ADD DIFF? NO; ADD MORPH? NO; ADD SCAN? NO; ATYPICAL LYMPHOCYTE FLAG 10 (0-99); FRAGMENT RBC FLAG 0 (0-99); HEMATOCRIT 25.9 % (38.0-47.0); HEMOGLOBIN 8.7 g/dL (12.6-16.3); LEFT SHIFT FLG 0 (0-99); LIPEMIA HEMOLYSIS FLAG 80 (0-99); MEAN CELL HEMOGLOBIN 33.3 pg (27.9-34.1); MEAN CELL HEMOGLOBIN CONCENTR. 33.6 g/dL (32.4-36.7); MEAN CELL VOLUME 99.2 fL (81.5-99.8); MEAN PLATELET VOLUME 9.4 fL (8.7-11.7); PLATELET CLUMPS FLAG 10 (0-99); PLATELET COUNT 181 10^3/uL (150-400); RED BLOOD CELL COUNT 2.61 10^6/uL (4.18-5.33); RED CELL DISTRIBUTION WIDTH 12.7 % (11.5-15.2)
[2017-07-22 05:35] LABS: INR 3.53 (0.83-1.16); PROTIME(PATIENT) 35.9 SEC (12.0-15.0)
[2017-07-22 05:36] LABS: APTT 81.6 SEC (23.0-38.0)
[2017-07-22 05:45] LABS: ALANINE AMINOTRANSFERASE 18 IU/L (9-52); ALBUMIN 2.8 g/dL (3.5-5.0); ALKALINE PHOSPHATASE 82 IU/L (38-126); ANION GAP 9 mEq/L (8-16); ASPARTATE AMINOTRANSFERASE 19 IU/L (14-46); BILIRUBIN,TOTAL 0.3 mg/dL (0.1-1.4); CALCIUM 8.5 mg/dL (8.5-10.4); CARBON DIOXIDE 27 mEq/l (22-31); CHLORIDE 107 mEq/L (97-110); CREATININE 0.6 mg/dL (0.6-1.0); GLOMERULAR FILTRATION RATE > 60; GLUCOSE 82 mg/dL (70-100); POTASSIUM 3.4 mEq/L (3.5-5.2); SODIUM 143 mEq/L (134-144); TOTAL PROTEIN 5.5 g/dL (6.3-8.2)
[2017-07-22] MEDS: Glatiramer Acetate [Copaxone] 20 MG SQ SCH (09:30)
[2017-07-22] MEDS: LIDOCAINE 5% 1 EA PATCH TD SCH (09:30)
[2017-07-22] MEDS: GABAPENTIN 300 MG CAP PO SCH ×3 (09:30→22:17)
[2017-07-22] MEDS: FUROSEMIDE 20 MG/2 ML VIAL IVP SCH (09:30)
[2017-07-22] MEDS: FOLIC ACID 1 MG TAB PO SCH (09:31)
[2017-07-22] MEDS: PANTOPRAZOLE SODIUM 40 MG in NS 100 ML IV SCH (09:31)
[2017-07-22] MEDS: ACETAMINOPHEN 500 MG TAB PO SCH ×3 (09:31→22:17)
[2017-07-22] MEDS: POTASSIUM CL 10 MEQ TAB PO SCH (09:31)
[2017-07-22] MEDS: SENNOSIDES/DOCUSATE SODIUM TAB PO SCH ×2 (09:32→20:06)
[2017-07-22] MEDS: POLYETHYLENE GLYCOL 3350 17 GM PKT PO SCH (09:32)
--- NOTE | 2017-07-22 11:24 | ASMTCMCOM ---
CM Note CM Note Notes: Met briefy with family. They reviewed [email or web address] for SNF ratings and plan to tour more facilities today. Will meet with them when they return. CM to follow. Date Signed: 07/22/2017 11:23 AM Electronically Signed By:Nasra Sparks RN
--- NOTE | 2017-07-22 13:15 | WOCRNPDOC ---
WOCRN Advanced Assessment Note - Skin Integrity Problem, Advanced Assess Right Sacrum Dressing Type: Open to Air Exudate Amount: None Exudate Characteristic(s): None Integumentary Issue Intervention: Barrier Cream Applied (Calazime) Miley Wound Tissue: Blanching, Intact Miley Wound Swelling: None Wound Bed Color: Red Skin Integrity Problem Comment: Small, discrete circular-shaped area of blanching erythema over R sacrum, unchanged in previous assessment. Skin is still intact, and there is no periwound erythema or swelling. Continue w/ plan of care including Calazime and off-loading. Wound care does not need to follow ongoing. Nursing advised to reconsult as needed. Left Posterior Upper Thigh Dressing Type: Open to Air Exudate Amount: None Exudate Characteristic(s): None Integumentary Issue Intervention: Barrier Cream Applied (Calazime) Miley Wound Tissue: Blanching, Intact Miley Wound Swelling: None Wound Bed Color: Red Site Odor: None Skin Integrity Problem Comment: Area of blanching erythema on patient's L post. thigh, distal to gluteal fold. Will continue w/ calazime BID, as patient has been having frequent, soft stools and will benefit from additional protection. No need for wound care to follow going forward. Staff RNs Katharina and Leti michaud.
--- NOTE | 2017-07-22 16:29 | PDINTPN ---
Clinical Unit Coordinator Progress Note Assessment/Plan: Assessment: Bilateral lower extremity tib-fib fractures. Nonsurgical. Splinted. The patient does have associated pain as would be expected. This does not appear to be excessive or intractable at this time. Current therapies appear to be appropriate. We have significantly decreased her pain medications as well as other medications. Multiple sclerosis, chronic. This is associated with chronic pain in addition to her fracture pain as outlined above. Again, current therapies and lower dose narcotic appear to be appropriate. History of aspiration and aspiration pneumonia. X-ray is not normal but there is no obvious new infiltrate however cannot rule out a small aspiration pneumonia. On Invanz. She has had some intermittent low-grade temps, white blood cell count now normal. On bronchopulmonary therapies as well. Nutrition: On oral feedings. She is on multiple medications as well with dysphasia 3 precautions. Some of her medications temporarily are intravenous. Altered mental status: Less lethargic as medications have been reduced, both narcotics as well as Neurontin. Klonopin changed to HS. Balancing this with adequate pain control has been somewhat challenging. Anemia: Hematocrit 26 today, down from approximately 40 on admission. On chronic full-dose anticoagulation with Coumadin. There is no evidence of active bleeding. Metabolic: No issues identified. DVT prophylaxis/anticoagulation. INR remains high, but coming down slowly. She is on chronic Coumadin. On hold currently. GI prophylaxis: Pantoprazole. Plan: Continue supportive care. She can transfer from the intensive care unit to a medical-surgical bed or status. Adequate pain control will be maintained, realizing it will not be able to take away all her pain. Intravenous fluids will be continued. Continue oral intake with precautions. Chest x-ray and laboratory will be followed intermittently. Follow H&H. Continue to hold Coumadin, follow INR 35 minutes of critical care time spent directly with the patient. Discussed issues with the patient's family, nursing, hospitalist, and the ICU multi disciplinary team. Subjective: Doing okay. Not a lot of pain. Less lethargic today Objective: Vital Signs Temp Pulse Resp BP Pulse Ox 37 C 81 18 118/58 L 96 07/22/17 16:00 07/22/17 16:00 07/22/17 16:00 07/22/17 16:00 07/22/17 16:00 Laboratory Results 07/22/17 04:55 07/22/17 04:55 07/21/17 07/22/17 07/23/17 05:59 05:59 05:59 Intake Total 2548 Output Total 5466 428 9247 Balance -1425 1823 -1800 PT 35.9 SEC (12.0-15.0) H 07/22/17 04:55 INR 3.53 (0.83-1.16) H 07/22/17 04:55 Physical Exam - Physical Exam General Appearance: other (Somewhat lethargic but easily aroused and very responsive) EENT: other (Nasal cannula at 3 L) Neck: normal inspection Respiratory: lungs clear (Anteriorly), decreased breath sounds (At bases), rales (No significant rales), No rhonchi (No rhonchi) Cardiac/Chest: regular rate, rhythm Abdomen: normal bowel sounds, non-tender, soft, distended (Mildly distended) Pelvic Exam: other (Suprapubic catheter, good urine output) Skin: warm/dry, pallor Extremities: No pedal edema Neuro/Psych: cognition abnormalities (Improved mental status, less sedated/ somnolent), No no motor/sensory deficits ICD10 Worksheet Patient Problems: Problems Problem Status Onset Bilateral tibial fractures Acute Acute lower urinary tract infection Active Infection due to resistant organism Active Fecal impaction Acute Pneumonia Acute ESBL (extended spectrum beta-lactamase) producing bacteria infection Acute 04/18
--- NOTE | 2017-07-22 16:37 | PDPCPN ---
Palliative Care Progress Note Assessment/Plan: Referring provider: Dr Lai Reason for consult: Complex medical decision making Symptom control HPI: Marie Sanabrai is a 77 yo female with PMH multiple sclerosis admitted to the hospital from where she lives for acute lower leg pain after fall. She was found to have bilateral acute tib/fib fractures being medically managed. Transferred to the ICU for acute resp failure improved after narcan and treated for possible asp PNA. Narcotics were reduced and mental status improved. Palliative care consulted for complex medical decision making. Met with Marie and her 4 children at the bedside this morning. Marie states she feels her current quality of life is very good. She enjoys being able to interact with her family as well as do simple activities. She states she has never thought about future medical wishes as someone can adapt to what is going on and so she doesn't know what she would or would not want. We discussed what means quality of life to her and what does not. If simple measures like antibiotics and fluids could help improve her back to her current baseline she would want re hospitalization. If she were mentally not aware or "in a vegetative state" she would not want life prolonging measures and "just let me go up to heaven". Filled out a MOST form with DNR/DNI selective measures. Assessment: Physical: - Pain: bilateral lower leg pain -fentanyl 25 mcg/hr- doing well on lower dose - has oxy PRN - on max gabapentin dose - lidoderm patches scheduled - on scheduled tylenol - toradol PRN - Dyspnea: - oxygen as needed - management per pul - fatigue - improved with lowered opiate use - changed scheduled klonopin to QHS instead of QAM as does not sleep at night and sleeps too much during the day - recently stated on trazadone at night 10 days ago to see if this helps with insomnia - constipation - at risk on opiates continue bowel regimen with senna and colace Emotional/psychological: doing well and well supported by her children Advanced Care Planning: Is patient decisional?: Yes Code Status: DNR/DNI MD QUINTERO:daughter is MDPOA. Plan: continue medical management of her acute issues. Family is looking into other LTC/SNF places after hospital stay. They do not want to return back to . Subjective: I think i'm doing ok Objective: Social History: Lives at [facility] for the past 10 years. Has 4 children all invovled and local. She enjoys going to yazidism as well as [employer] study and arts/crafts. Medication list reviewed ROS: General: fatigue, weaknes ENT: dysphagia Resp: cough GI: negative : negative MS: bilateral leg pain Skin: negative Neuro: negative Psych: negative Functional assessment: PPS: 40% Functional status:dependent on ADLs, IADLs Vital Signs Temp Pulse Resp BP Pulse Ox 37 C 81 18 118/58 L 96 07/22/17 16:00 07/22/17 16:00 07/22/17 16:00 07/22/17 16:00 07/22/17 16:00 Laboratory Results 07/22/17 04:55 07/22/17 04:55 07/21/17 07/22/17 07/23/17 05:59 05:59 05:59 Intake Total 2548 Output Total 2261 556 3904 Balance -1425 1823 -1800 PT 35.9 SEC (12.0-15.0) H 07/22/17 04:55 INR 3.53 (0.83-1.16) H 07/22/17 04:55 Physical Exam - Physical Exam General Appearance: alert, no apparent distress Respiratory: No respiratory distress, No accessory muscle use Skin: normal color, warm/dry Extremities: pedal edema Neuro/Psych: alert, oriented x 3 ICD10 Worksheet Patient Problems: Problems Problem Status Onset Acute lower urinary tract infection Active Infection due to resistant organism Active Bilateral tibial fractures Acute ESBL (extended spectrum beta-lactamase) producing bacteria infection Acute 04/18 Fecal impaction Acute Pneumonia Acute
[2017-07-22] MEDS ORDERED: PROTOCOL POTASSIUM 1 DOSE MISC PRN (17:15)
--- NOTE | 2017-07-22 17:21 | HOSPPROG ---
Hospitalist Progress Note Assessment/Plan: * Bilateral tib/fib fractures -continue splint (non-operative) -ASO brace fitted today - will be delivered to her mid week -pain control is difficult -reduced narcotics -scheduled tylenol, NSAIDs -NWB - WC bound at baseline * Hypotension -resolved with IVF bolus * Anemia -? bleed into fracture -now stable * Advanced MS * Suprapubic catheter -chronic * Acute respiratory failure - suspect due to narcotics -improved with Narcan * Aspiration pneumonia -IV Invanz * Metabolic encephalopathy - now awake * h/o DVT -continue warfarin INR goal 2-3 * COPD with chronic respiratory failure - baseline 2-4L Subjective: Pain control is adequate Objective: Vital Signs Temp Pulse Resp BP Pulse Ox 36.5 C 68 16 116/71 96 07/22/17 17:00 07/22/17 17:00 07/22/17 17:00 07/22/17 17:00 07/22/17 17:00 Laboratory Results 07/22/17 04:55 07/22/17 04:55 07/21/17 07/22/17 07/23/17 05:59 05:59 05:59 Intake Total 2548 Output Total 0222 906 8501 Balance -1425 1823 -1800 PT 35.9 SEC (12.0-15.0) H 07/22/17 04:55 INR 3.53 (0.83-1.16) H 07/22/17 04:55 CXR - possible CHF, some infiltrate d/w Dr. Parker - stable for floor today - Physical Exam Constitutional: no apparent distress, appears nourished, not in pain Cardiovascular: regular rate and rhythym, no murmur, rub, or gallop Respiratory: no respiratory distress, no rales or rhonchi, clear to auscultation Gastrointestinal: normoactive bowel sounds, soft, non-tender abdomen, no palpable masses Skin: no rashes or abrasions, no fluctuance, no induration Neurologic: AAOx3, sensation intact bilaterally Psychiatric: interacting appropriately, not anxious, not encephalopathic, thought process linear ICD10 Worksheet Patient Problems: Problems Problem Status Onset Bilateral tibial fractures Acute Acute lower urinary tract infection Active Infection due to resistant organism Active ESBL (extended spectrum beta-lactamase) producing bacteria infection Acute 04/18 Fecal impaction Acute Pneumonia Acute
[2017-07-22 18:54] LABS: POTASSIUM 3.1 mEq/L (3.5-5.2)
[2017-07-22] MEDS ORDERED: POTASSIUM CL 10 MEQ TAB PO ONE (19:40)
[2017-07-22] MEDS: ERTAPENEM 1 GM in NS 100 ML IV SCH (20:03)
[2017-07-22] MEDS: clonazePAM 0.5 MG TAB PO SCH (20:03)
[2017-07-22] MEDS: oxyCODONE ORAL SOLUTION 10 MG/0.5 ML UDSYR PO PRN (20:04)
[2017-07-22] MEDS: traZODone 50 MG TAB PO SCH (20:06)
[2017-07-22] MEDS ORDERED: clonazePAM 0.5 MG TAB PO SCH (21:00)
[2017-07-22] MEDS: IBUPROFEN 800 MG TAB PO SCH (22:18)
[2017-07-22] MEDS: PATCH REMOVAL 1 EA PATCH TD SCH (22:19)
[2017-07-23] MEDS: oxyCODONE ORAL SOLUTION 10 MG/0.5 ML UDSYR PO PRN ×2 (02:04→08:36)
[2017-07-23 04:36] LABS: % IMMATURE GRANULYOCYTES 0.7 % (0.0-1.1); ABSOLUTE IMMATURE GRANULOCYTES 0.03 10^3/uL (0.00-0.10); ADD DIFF? NO; ADD MORPH? NO; ADD SCAN? NO; ATYPICAL LYMPHOCYTE FLAG 10 (0-99); FRAGMENT RBC FLAG 0 (0-99); HEMATOCRIT 27.4 % (38.0-47.0); HEMOGLOBIN 9.4 g/dL (12.6-16.3); LEFT SHIFT FLG 0 (0-99); LIPEMIA HEMOLYSIS FLAG 90 (0-99); MEAN CELL HEMOGLOBIN 33.2 pg (27.9-34.1); MEAN CELL HEMOGLOBIN CONCENTR. 34.3 g/dL (32.4-36.7); MEAN CELL VOLUME 96.8 fL (81.5-99.8); MEAN PLATELET VOLUME 8.9 fL (8.7-11.7); PLATELET CLUMPS FLAG 0 (0-99); PLATELET COUNT 187 10^3/uL (150-400); RED BLOOD CELL COUNT 2.83 10^6/uL (4.18-5.33); RED CELL DISTRIBUTION WIDTH 12.8 % (11.5-15.2)
[2017-07-23 04:41] LABS: INR 3.07 (0.83-1.16); PROTIME(PATIENT) 32.1 SEC (12.0-15.0)
[2017-07-23] MEDS: IBUPROFEN 800 MG TAB PO SCH ×3 (05:11→21:31)
[2017-07-23] MEDS: IPRATROPIUM/ALBUTEROL 3 ML DEYVIAL IH SCH ×4 (05:33→21:58)
[2017-07-23 06:20] LABS: ANION GAP 12 mEq/L (8-16); CALCIUM 8.5 mg/dL (8.5-10.4); CARBON DIOXIDE 28 mEq/l (22-31); CHLORIDE 104 mEq/L (97-110); CREATININE 0.6 mg/dL (0.6-1.0); GLOMERULAR FILTRATION RATE > 60; GLUCOSE 81 mg/dL (70-100); POTASSIUM 3.3 mEq/L (3.5-5.2); SODIUM 144 mEq/L (134-144)
--- NOTE | 2017-07-23 08:33 | HOSPPROG ---
Hospitalist Progress Note Assessment/Plan: 77 yo F w/ advanced MS and hx DVT on warfarin presents with bilateral tib/fib fractures after a fall. Reviewed her care with Dr Welsh who say her last nigh. * Bilateral tib/fib fractures -continue splint (non-operative) -ASO brace fitted today - will be delivered to her mid week -pain control is difficult -reduced narcotics -scheduled tylenol, NSAIDs -NWB - WC bound at baseline * advanced MS -patient is wheelchair bound -has a suprapubic catheter in place that was changed on July 18 * Acute respiratory failure - suspect due to narcotics -improved with Narcan * Aspiration pneumonia -IV Invanz/this was started on the * hypotension -resolved * Metabolic encephalopathy - now awake * h/o DVT -continue warfarin INR goal 2-3 -INR is 3.1 will hold Coumadin at this time but will need to be restarted * COPD with chronic respiratory failure - baseline 2-4L Subjective: Raven is feeling markedly better today and is hungry Objective: Vital Signs Temp Pulse Resp BP Pulse Ox 36.7 C 87 16 123/71 H 94 07/23/17 07:58 07/23/17 07:58 07/23/17 07:58 07/23/17 07:58 07/23/17 07:58 Laboratory Results 07/23/17 04:20 07/23/17 04:20 07/22/17 07/23/17 07/24/17 05:59 05:59 05:59 Intake Total 2548 250 Output Total 725 2675 Balance 1823 -2425 PT 32.1 SEC (12.0-15.0) H 07/23/17 04:20 INR 3.07 (0.83-1.16) H 07/23/17 04:20 - Physical Exam Constitutional: no apparent distress, appears nourished, No not in pain ( Complains of ongoing lower extremity pain) Eyes: PERRL Ears, Nose, Mouth, Throat: hearing normal Cardiovascular: regular rate and rhythym Respiratory: no respiratory distress Gastrointestinal: normoactive bowel sounds Skin: warm Musculoskeletal: generalized weakness Neurologic: AAOx3 Psychiatric: interacting appropriately, not anxious ICD10 Worksheet Patient Problems: Problems Problem Status Onset Bilateral tibial fractures Acute Acute lower urinary tract infection Active Infection due to resistant organism Active ESBL (extended spectrum beta-lactamase) producing bacteria infection Acute 04/18 Fecal impaction Acute Pneumonia Acute
[2017-07-23] MEDS: GABAPENTIN 300 MG CAP PO SCH ×3 (08:36→21:30)
[2017-07-23] MEDS: LIDOCAINE 5% 1 EA PATCH TD SCH (08:36)
[2017-07-23] MEDS: FOLIC ACID 1 MG TAB PO SCH (08:37)
[2017-07-23] MEDS: FUROSEMIDE 20 MG/2 ML VIAL IVP SCH (08:37)
[2017-07-23] MEDS: ACETAMINOPHEN 500 MG TAB PO SCH ×3 (08:37→21:29)
[2017-07-23] MEDS: POTASSIUM CL 10 MEQ TAB PO SCH (08:37)
[2017-07-23] MEDS: POLYETHYLENE GLYCOL 3350 17 GM PKT PO SCH (09:03)
[2017-07-23] MEDS: SENNOSIDES/DOCUSATE SODIUM TAB PO SCH ×2 (09:03→21:32)
[2017-07-23] MEDS: Glatiramer Acetate [Copaxone] 20 MG SQ SCH (11:18)
[2017-07-23] MEDS ORDERED: POTASSIUM CL 10 MEQ TAB PO ONE ×2 (14:51→20:33)
[2017-07-23] MEDS: oxyCODONE IR 5 MG TAB PO PRN (17:08)
[2017-07-23] MEDS: ERTAPENEM 1 GM in NS 100 ML IV SCH (19:40)
[2017-07-23 20:07] LABS: POTASSIUM 3.7 mEq/L (3.5-5.2)
[2017-07-23] MEDS: clonazePAM 0.5 MG TAB PO SCH (21:30)
[2017-07-23] MEDS: PATCH REMOVAL 1 EA PATCH TD SCH (21:31)
[2017-07-23] MEDS: traZODone 50 MG TAB PO SCH (21:32)
[2017-07-24] MEDS: oxyCODONE IR 5 MG TAB PO PRN (01:23)
[2017-07-24] MEDS: IBUPROFEN 800 MG TAB PO SCH ×3 (05:12→22:33)
[2017-07-24] MEDS: IPRATROPIUM/ALBUTEROL 3 ML DEYVIAL IH SCH ×4 (05:24→22:10)
[2017-07-24 05:49] LABS: % IMMATURE GRANULYOCYTES 0.5 % (0.0-1.1); ABSOLUTE IMMATURE GRANULOCYTES 0.02 10^3/uL (0.00-0.10); ADD DIFF? NO; ADD MORPH? NO; ADD SCAN? NO; ATYPICAL LYMPHOCYTE FLAG 10 (0-99); FRAGMENT RBC FLAG 0 (0-99); HEMATOCRIT 29.5 % (38.0-47.0); HEMOGLOBIN 10.2 g/dL (12.6-16.3); LEFT SHIFT FLG 0 (0-99); LIPEMIA HEMOLYSIS FLAG 90 (0-99); MEAN CELL HEMOGLOBIN 33.4 pg (27.9-34.1); MEAN CELL HEMOGLOBIN CONCENTR. 34.6 g/dL (32.4-36.7); MEAN CELL VOLUME 96.7 fL (81.5-99.8); MEAN PLATELET VOLUME 8.9 fL (8.7-11.7); PLATELET CLUMPS FLAG 0 (0-99); PLATELET COUNT 209 10^3/uL (150-400); RED BLOOD CELL COUNT 3.05 10^6/uL (4.18-5.33); RED CELL DISTRIBUTION WIDTH 12.9 % (11.5-15.2)
[2017-07-24 05:52] LABS: ANION GAP 9 mEq/L (8-16); CALCIUM 8.9 mg/dL (8.5-10.4); CARBON DIOXIDE 32 mEq/l (22-31); CHLORIDE 102 mEq/L (97-110); CREATININE 0.6 mg/dL (0.6-1.0); GLOMERULAR FILTRATION RATE > 60; GLUCOSE 75 mg/dL (70-100); POTASSIUM 3.8 mEq/L (3.5-5.2); SODIUM 143 mEq/L (134-144)
[2017-07-24 05:53] LABS: INR 3.03 (0.83-1.16); PROTIME(PATIENT) 31.8 SEC (12.0-15.0)
[2017-07-24] MEDS: FUROSEMIDE 20 MG/2 ML VIAL IVP SCH (09:00)
[2017-07-24] MEDS: LIDOCAINE 5% 1 EA PATCH TD SCH (09:36)
[2017-07-24] MEDS: GABAPENTIN 300 MG CAP PO SCH ×3 (09:36→22:33)
[2017-07-24] MEDS: fentaNYL 25 MCG PATCH TD SCH (09:36)
[2017-07-24] MEDS: POTASSIUM CL 10 MEQ TAB PO SCH (09:37)
[2017-07-24] MEDS: FOLIC ACID 1 MG TAB PO SCH (09:37)
[2017-07-24] MEDS: ACETAMINOPHEN 500 MG TAB PO SCH ×3 (09:38→22:33)
[2017-07-24] MEDS: POLYETHYLENE GLYCOL 3350 17 GM PKT PO SCH (10:05)
[2017-07-24] MEDS: SENNOSIDES/DOCUSATE SODIUM TAB PO SCH ×2 (10:06→20:29)
[2017-07-24] MEDS: Glatiramer Acetate [Copaxone] 20 MG SQ SCH (11:24)
--- NOTE | 2017-07-24 13:58 | HOSPPROG ---
Hospitalist Progress Note Assessment/Plan: 77 yo F w/ advanced MS and hx DVT on warfarin presents with bilateral tib/fib fractures after a fall. * Bilateral tib/fib fractures -continue splint (non-operative) -ASO brace fitted - will be delivered to her mid week -pain control is difficult -reduced narcotics -scheduled tylenol, NSAIDs -NWB - WC bound at baseline * advanced MS -patient is wheelchair bound -has a suprapubic catheter in place that was changed on July 18 * Acute respiratory failure - suspect due to narcotics -improved with Narcan -on 3 liters * Aspiration pneumonia -IV Invanz/this was started on the * hypotension -resolved * Metabolic encephalopathy - now awake and alert * h/o DVT -continue warfarin INR goal 2-3 -INR is 3.0 will hold Coumadin at this time but will need to be restarted * COPD with chronic respiratory failure - baseline 2-4L *Plan: will discuss w CM/should be ready for dc tomorrow/family deciding on placement Subjective: Marie wants to watch tv, not c/o pain. Objective: Vital Signs Temp Pulse Resp BP Pulse Ox 37.1 C 81 16 124/68 H 92 07/24/17 08:00 07/24/17 08:00 07/24/17 08:00 07/24/17 08:00 07/24/17 08:00 Laboratory Results 07/24/17 05:15 07/24/17 05:15 07/23/17 07/24/17 07/25/17 05:59 05:59 05:59 Intake Total 250 950 Output Total 2675 1500 Balance -2425 -550 PT 31.8 SEC (12.0-15.0) H 07/24/17 05:15 INR 3.03 (0.83-1.16) H 07/24/17 05:15 - Physical Exam Constitutional: no apparent distress, chronically ill appearing Eyes: PERRL Ears, Nose, Mouth, Throat: hearing normal Cardiovascular: regular rate and rhythym Respiratory: no respiratory distress, reduced air movement Gastrointestinal: normoactive bowel sounds Skin: warm, No normal color (pale) Musculoskeletal: generalized weakness Neurologic: AAOx3 Psychiatric: interacting appropriately, not anxious, not encephalopathic ICD10 Worksheet Patient Problems: Problems Problem Status Onset Bilateral tibial fractures Acute Acute lower urinary tract infection Active Infection due to resistant organism Active ESBL (extended spectrum beta-lactamase) producing bacteria infection Acute 04/18 Fecal impaction Acute Pneumonia Acute
[2017-07-24] MEDS ORDERED: POTASSIUM CL 10 MEQ TAB PO ONE ×2 (14:53→19:35)
[2017-07-24 18:00] LABS: POTASSIUM 3.2 mEq/L (3.5-5.2)
--- NOTE | 2017-07-24 18:17 | ASMTCMCOM ---
CM Note CM Note Notes: Spoke to patient's daughter, Jessica and her son, Gallo [phone] about probable discharge Tuesday. They would like patient to go to [facility] for LTC. A referral has been made to [facility] and family was at the facility today. This CM spoke to Simran charge coordinator, who reported that a final decision about admission won't be made until Tuesday when Aviva, Rey, returns. I left a message with Gallo that it would be good for family to have another LTC option available in case [facility] decides not to admit. Date Signed: 07/24/2017 06:17 PM Electronically Signed By:Farzaneh Deluna LCSW
--- NOTE | 2017-07-24 18:37 | SOAPPROG ---
SOAP Progress Note Assessment/Plan: Assessment: Bilateral lower extremity tib-fib fractures. Nonsurgical. Splinted. The patient does have associated pain as would be expected. This does not appear to be excessive or intractable at this time. Current therapies appear to be appropriate. We have significantly decreased her pain medications as well as other medications, she seems to be doing well with this. She is to see Orthopedics back in approximately 1 week. Splints are not to be removed prior to that per Ortho recommendations. Multiple sclerosis, chronic. This is associated with chronic pain in addition to her fracture pain as outlined above. Again, current therapies and lower dose narcotics appear to be appropriate. History of aspiration and aspiration pneumonia. X-ray is not normal but there is no obvious new infiltrate, however could not rule out a small aspiration pneumonia. On Invanz daily 4 today. She has had some intermittent low-grade temps, white blood cell count now normal. On bronchopulmonary therapies as well. Chest x-ray shows some left lower lobe increased markings/infiltrate/ atelectasis but these findings go back over the last year and beyond. Would recommend continuing Invanz while she is here and stopping it on discharge today 5, 6 or 7 depending on when she leaves. Nutrition: On oral feedings. She is on multiple medications as well with dysphasia 3 precautions. Some of her medications temporarily are intravenous. Altered mental status: Much less lethargic as medications have been reduced, both narcotics as well as Neurontin. Klonopin changed to HS. Balancing this with adequate pain control has been somewhat challenging. Anemia: Hematocrit 29 today, improved but down from approximately 40 on admission. On chronic full-dose anticoagulation with Coumadin, but currently on hold. There is no evidence of active bleeding. Metabolic: No issues identified. DVT prophylaxis/anticoagulation. INR remains high, 3 today, but coming down slowly. She is on chronic Coumadin. On hold currently. GI prophylaxis: Pantoprazole. Plan: Continue supportive care. Continue appropriate pain control. Continue oral intake with precautions. Continue Invanz for duration of her hospitalization. Discontinue on discharge. Doubt significant aspiration pneumonia or aspiration event. Follow H&H. Continue to hold Coumadin, follow INR. For discharge to a new nursing facility for her in the next day or two. Follow up with Orthopedics (Dr. Vitale) as an outpatient in about a week. I will sign off at this point. Subjective: Doing well. Awake and alert. Visiting with family. Appears comfortable. Complains of pain in the feet and legs Objective: Vital Signs Temp Pulse Resp BP Pulse Ox 37.1 C 85 20 141/91 H 95 07/24/17 16:00 07/24/17 17:08 07/24/17 17:08 07/24/17 16:00 07/24/17 17:08 Laboratory Results 07/24/17 05:15 07/24/17 17:30 07/23/17 07/24/17 07/25/17 05:59 05:59 05:59 Intake Total 250 950 Output Total 2675 1500 300 Balance -2425 -550 -300 PT 31.8 SEC (12.0-15.0) H 07/24/17 05:15 INR 3.03 (0.83-1.16) H 07/24/17 05:15 Laboratory Tests 07/24/17 05:15 PT 31.8 H INR 3.03 H Physical Exam - Physical Exam General Appearance: alert, no apparent distress EENT: other (Nasal cannula in place at 3 L) Neck: normal inspection Respiratory: lungs clear, decreased breath sounds, rales (Few nonspecific rales at bases), rhonchi (Minimal central congestion with cough), No wheezing (No significant wheezing) Cardiac/Chest: regular rate, rhythm Abdomen: normal bowel sounds, non-tender, soft, other (Suprapubic catheter in place) Extremities: pedal edema Neuro/Psych: No no motor/sensory deficits (No changes), No cognition abnormalities (Less sedated, oriented) ICD10 Worksheet Patient Problems: Problems Problem Status Onset Bilateral tibial fractures Acute Acute lower urinary tract infection Active Infection due to resistant organism Active ESBL (extended spectrum beta-lactamase) producing bacteria infection Acute 04/18 Fecal impaction Acute Pneumonia Acute
[2017-07-24] MEDS: traZODone 50 MG TAB PO SCH (20:05)
[2017-07-24] MEDS: ERTAPENEM 1 GM in NS 100 ML IV SCH (20:05)
[2017-07-24] MEDS: clonazePAM 0.5 MG TAB PO SCH (20:05)
[2017-07-24] MEDS: PATCH REMOVAL 1 EA PATCH TD SCH (22:33)
[2017-07-25] MEDS: oxyCODONE IR 5 MG TAB PO PRN ×2 (00:14→13:00)
[2017-07-25] MEDS: IPRATROPIUM/ALBUTEROL 3 ML DEYVIAL IH SCH ×2 (04:45→10:38)
[2017-07-25] MEDS: IBUPROFEN 800 MG TAB PO SCH ×2 (05:10→12:56)
[2017-07-25 05:47] LABS: INR 2.86 (0.83-1.16); PROTIME(PATIENT) 30.4 SEC (12.0-15.0)
[2017-07-25 05:48] LABS: % IMMATURE GRANULYOCYTES 0.6 % (0.0-1.1); ABSOLUTE IMMATURE GRANULOCYTES 0.03 10^3/uL (0.00-0.10); ADD DIFF? NO; ADD MORPH? NO; ADD SCAN? NO; ATYPICAL LYMPHOCYTE FLAG 10 (0-99); FRAGMENT RBC FLAG 0 (0-99); HEMATOCRIT 30.4 % (38.0-47.0); LEFT SHIFT FLG 0 (0-99); LIPEMIA HEMOLYSIS FLAG 80 (0-99); MEAN CELL HEMOGLOBIN 32.5 pg (27.9-34.1); MEAN CELL HEMOGLOBIN CONCENTR. 32.9 g/dL (32.4-36.7); MEAN CELL VOLUME 98.7 fL (81.5-99.8); MEAN PLATELET VOLUME 8.8 fL (8.7-11.7); PLATELET CLUMPS FLAG 20 (0-99); PLATELET COUNT 225 10^3/uL (150-400); RED BLOOD CELL COUNT 3.08 10^6/uL (4.18-5.33)
[2017-07-25 05:56] LABS: ANION GAP 7 mEq/L (8-16); CALCIUM 9.2 mg/dL (8.5-10.4); CARBON DIOXIDE 30 mEq/l (22-31); CHLORIDE 105 mEq/L (97-110); CREATININE 0.6 mg/dL (0.6-1.0); GLOMERULAR FILTRATION RATE > 60; GLUCOSE 77 mg/dL (70-100); SODIUM 142 mEq/L (134-144)
[2017-07-25 06:06] LABS: POTASSIUM 4.2 mEq/L (3.5-5.2)
[2017-07-25 08:27] VITALS: BP 126/66; TEMP 97.6
[2017-07-25] MEDS ORDERED: FUROSEMIDE 40 MG TAB PO SCH (09:00)
[2017-07-25] MEDS: POTASSIUM CL 10 MEQ TAB PO SCH (09:53)
[2017-07-25] MEDS: ACETAMINOPHEN 500 MG TAB PO SCH (09:54)
[2017-07-25] MEDS: GABAPENTIN 300 MG CAP PO SCH (09:55)
[2017-07-25] MEDS: LIDOCAINE 5% 1 EA PATCH TD SCH (09:56)
[2017-07-25] MEDS: FOLIC ACID 1 MG TAB PO SCH (09:56)
[2017-07-25] MEDS: POLYETHYLENE GLYCOL 3350 17 GM PKT PO SCH (09:57)
[2017-07-25] MEDS: SENNOSIDES/DOCUSATE SODIUM TAB PO SCH (09:57)
--- NOTE | 2017-07-25 10:20 | PDIAF ---
- Diagnosis Diagnosis: tib/fib fx Code Status: Do Not Resuscitate - Medication Management Discharge Medications: Medications to Continue on Transfer Baclofen [Baclofen 10 mg (*)] 10 mg PO Q6H PRN 09/20/12 [Last Taken 07/16/17] Polyethylene Glycol 3350 [Miralax 17 gm (*)] 17 g PO DAILY 09/20/12 [Last Taken 07/15/17] Potassium Cl [Klor-Con 10 meq (RX)] 20 meq PO DAILY 09/20/12 [Last Taken ] Acetaminophen 650 mg RC Q4H PRN 05/16/16 [Last Taken 07/11/17] Albuterol [Proventil Neb] 2.5 mg IH Q2H PRN 05/16/16 [Last Taken Unknown] Bisacodyl [Dulcolax] 10 mg RC DAILY PRN 05/16/16 [Last Taken Unknown] Calcium Carbonate [Tums 500MG (*)] 1,000 mg PO QID PRN 05/16/16 [Last Taken Unknown] Cholecalciferol Vit D3 [Vitamin D3 (*)] 50,000 unit PO Q30D 05/16/16 [Last Taken 07/10/17] Escitalopram Oxalate [Lexapro 10 MG] 5 mg PO DAILY 05/16/16 [Last Taken 07/15/17 ] Folic Acid [Folic Acid 1 MG (*)] 1 mg PO DAILY 05/16/16 [Last Taken 07/15/17] Furosemide [Lasix 20 MG (*)] 40 mg PO DAILY 05/16/16 [Last Taken 07/15/17] Polyvinyl Alcohol [Artificial Tears] 1 drop EACHEYE Q4H PRN 05/16/16 [Last Taken Unknown] Sodium Chloride [Deep Sea] 2 sprays EACHNARE QID PRN 05/16/16 [Last Taken Unknown] Warfarin Sodium [Coumadin 2.5MG (*)] 2.5 mg PO SUTUTHSA@16 05/16/16 [Last Taken Unknown] traZODone [traZODONE 50MG (*)] 25 mg PO HS 05/16/16 [Last Taken Unknown] Glatiramer Acetate [Copaxone] 20 mg SQ DAILY 07/15/17 [Last Taken 07/15/17] Acetaminophen 650 mg RC Q6 PRN 07/16/17 [Last Taken 07/04/17] Acetaminophen [Tylenol 325mg (*)] 325 mg PO TID 07/16/17 [Last Taken 07/16/17] Benzocaine/Menthol 15/01 [Cepacol Lozenge] 1 each PO Q2H PRN 07/16/17 [Last Taken Unknown] Gabapentin [Neurontin 400 MG (*)] 1,200 mg PO TID 07/16/17 [Last Taken 07/15/17] Lidocaine 5% [Lidoderm 5% Patch (*)] 2 each TD DAILY 07/16/17 [Last Taken ] Magnesium Hydroxide [Milk of Magnesia] 30 ml PO DAILY PRN 07/16/17 [Last Taken 07/15/17] Ondansetron Odt [Zofran Odt 4 mg (*)] 4 mg PO TID PRN 07/16/17 [Last Taken 07/05] Phenazopyridine HCl [Pyridium] 100 mg PO TID PRN 07/16/17 [Last Taken Unknown] Warfarin Sodium [Coumadin 3MG (*)] 3 mg PO MWF@16 07/16/17 [Last Taken 07/15/17] guaiFENesin/DEXTROMETHORPHAN [Robitussin Dm Oral Liquid (*)] 10 ml PO Q6H PRN [Last Taken Unknown] oxyCODONE ORAL SOLUTION [Roxicodone Intensol] 7.5 mg PO Q3H PRN 07/16/17 [Last Taken 07/15/17] Patch Removal 1 ea TP HS 07/20/17 [Last Taken Unknown] Ibuprofen [Motrin (*)] 800 mg PO Q8HRS tab 07/25/17 [Last Taken Unknown] Ipratropium/Albuterol [Duoneb (*)] 3 ml IH Q6HRS deyvial 07/25/17 [Last Taken Unknown] clonazePAM [Klonopin (*)] 0.25 mg PO HS tab 07/25/17 [Last Taken Unknown] fentaNYL [Duragesic 25 MCG Patch (*)] 25 mcg TD Q72H patch 07/25/17 [Last Taken Unknown] Discharge Medications: Refer to the Discharge Home Medication list for PRN reason. PICC Care - Routine: N/A - Orders Services needed: Registered Nurse, Physical Therapy, Occupational Therapy Diet Recommendation: no restrictions on diet Diet Texture: Dysphagia 3 - Advanced - Moist, Bite-Size, [place] Thick Liquids, Meds Crushed in Puree - Labs/Radiology PT/INR Date: 07/27/17 - Follow Up Care Current Providers and Referrals: Patient,NotPresent [Unknown] - As per Instructions
[2017-07-25] MEDS: Glatiramer Acetate [Copaxone] 20 MG SQ SCH (10:30)
[2017-07-25 10:50] VITALS: PULSE 77; RESP 24; O2SAT 96
[2017-07-25] MEDS ORDERED: WARFARIN SODIUM 1 MG TAB PO ONE (16:00)
--- NOTE | 2017-07-25 16:39 | ASMTCMCOM ---
CM Note CM Note Notes: Patient discharged to [facility]. I spoke with her daughter multiple times today regarding the discharge: [facility] will [facility] to meet with patient and fill out paperwork. Also, daughter (Jessica) was concerned about a document she needed to get the joystick on patient's electronic wheelchair fixed. She said she would fax it to me, but I never received it. I suggested that she send it to [facility] to get it handled in a more timely manner. She was also wondering about some "removable casts" for her mother's legs; per ortho note, patient has splints in place that need to remain until her f/u appointment with him in 1-2 weeks. Transport was via ED01 stretcher at 1500 today. Patient's son Gallo also notified. Date Signed: 07/25/2017 04:39 PM Electronically Signed By:Tyra Feliz RN
--- NOTE | 2017-07-25 16:41 | ASDISCHSUM ---
Discharge Information Plan Status:SNF Medically Cleared to Leave: Discharge Date:07/25/2017 03:22 PM D/C Disposition:Senior Living Facility ADT D/C Disposition:Senior Living Facility Projected Discharge Date:07/25/2017 11:00 AM Transportation at D/C:ALS/BLS Discharge Delay Reason: Follow-Up Date:07/25/2017 11:00 AM Discharge Slot: Final Diagnosis: Placement Information Referral Type:*Custodial/SNF Referral ID:[id number] Provider Name: Address 1: Phone Number: Address 2: Fax Number: City: Selection Factors: State: Referral Type:*Custodial/SNF Referral ID:[id number] Provider Name: Address 1: Phone Number: Address 2: Fax Number: City: Selection Factors: State: Referral Type:*Custodial/SNF Referral ID:[id number] Provider Name: Address 1: Phone Number: Address 2: Fax Number: City: Selection Factors: State: Referral Type:*Custodial/SNF Referral ID:[id number] Provider Name:[facility] Address 1:[address] Address 2: City:[place] Selection Factors: State:[place] Patient Contact Information Contact Name:AYRA Relationship:Daughter Address:[address] [place] [address] City:[facility] Phone: [facility]/Zip Code:[place] [address] Email: Financial Information Financial Class: Primary Plan Desc:MEDICARE INPATIENT Primary Plan Number:[id number] Secondary Plan Desc: Secondary Plan Number: Assessment Information [facility] CM Progress Note CM Note CM Note Notes: Pt. is a 77-year-old woman admitted after Pt. fell at [employer] and has bilateral tib/fib fractures. Pt. w/ hx. advanced MS and has lived at [facility] for some 10 years. Per daughter, Jessica Pt "was dropped" on 07/12/17 by staff at [facility]. Per Jessica, Pt. had many interactions with staff after she was dropped and no one noticed her legs were in need of ortho medical attention for days. Daughter would like Pt. not to go back to [facility] at this time. Daughter would like Inpatient Rehab eval and is open to new temporary rehab placement. Ambrosior sent referrals via Allscripts to [facility] [place]. Discussed Inpatient Rehab eval order with hospitalist. Jessica states her brother is a physician and is contemplating legal options. Await completion of PT eval. Date Signed: 07/16/2017 04:25 PM Electronically Signed By:Dorothy Fischer LCSW [facility] CM Progress Note CM Note CM Note Notes: Chart reviewed. Lengthy discussion with daughter Jessica. [facility] acceptances for inpt vs [facility] at this point will update referrals. CM to follow. Date Signed: 07/17/2017 03:03 PM Electronically Signed By:Nasra Sparks RN [facility] CM Progress Note CM Note CM Note Notes: PT is recommending pt return to LTC as there are no real goals for pt to be in SNF 2/2 her MS and NWB status. PT currently working with pt on feeding herself. Donna from [facility] was here today and said it's possible they would accept pt but it would be a very short rehab stay. Daughter Jessica [phone] [facility] [employer] [facility] and does not think it would be a good fit for her mother as there didn't appear to be much activity or stimulation. CM had 3 or 4 conversations with Jessica today about what happened at [facility] and pt's future LTC stay. She asked for a referral to be sent to [facility]. She is considering transferring her mother there for LTC initially private pay and then to transition to Medicaid. She is hopeful they will accept her for short term rehab as well. APS came in today to interview pt. Jessica does not want her mother to return to at this time, or ever, depending on how the incident is resolved. Date Signed: 07/18/2017 04:30 PM Electronically Signed By:MARKUS Rios [facility] IRINEO Progress Note CM Note IRINEO Note Notes: No response from [facility] in Allscripts, VM left for admissions. [facility] is willing to speak w dghtr if interested in LTC there, cannot accept pt for SNF. Date Signed: 07/19/2017 04:13 PM Electronically Signed By:MARKUS Estevez [facility] IRINEO Progress Note CM Note CM Note Notes: Clarissa Sharp [phone] reviewing pt for [facility]. Although far from [place], family is considering this facility because of their approach to care. Spoke w pt son Armando [phone] and [facility] [phone], they recognize pt will likely not be accepted at a SNF for rehab but pt needs LTC and private pay. They expect pt private pay money will run out in approx. 2 years then LTC Mdcd. Armando and [facility] are touring [place] today. Also provided Armando tariq info on [facility], a facility specializing in MS pts (although it is in [place]). Family meeting w Tavon Weaver today. Family is not ruling out a return to [facility] ever but need time to assess the safety of a return to [facility]. [facility] reports there were concerns w [facility] prior to this and the care has declined the last month. [employer] investigating, truck driving met marciano hein at hospital today. Date Signed: 07/20/2017 03:34 PM Electronically Signed By:MARKUS Estevez [facility] CM Progress Note CM Note CM Note Notes: Chart reviewed. Patient stat call from [facility] today. Not yet ready for dc. Family in process of making decisions r/t discharge dispostions. CM to follow. Date Signed: 07/21/2017 11:56 AM Electronically Signed By:Nasra Sparks RN [facility] ROSA Length of stay for Answers: 4-6 days current admission Acuity / Level of Care Answers: Was the patient admitted to hospital via the emergency department? Yes: Comorbidities - select Answers: Chronic pulmonary disease all that apply Emergency dept visits in Answers: 1 last 6 months Score: 10 Date Signed: 07/22/2017 11:21 AM Electronically Signed By:Nasra Sparks RN [facility] CM Progress Note CM Note CM Note Notes: Met briefy with family. They reviewed [facility] for SNF ratings and plan to tour more facilities today. Will meet with them when they return. CM to follow. Date Signed: 07/22/2017 11:23 AM Electronically Signed By:Nasra Sparks RN [facility] CM Progress Note CM Note CM Note Notes: Spoke to patient's daughter, Jessica and her son, Gallo [phone] about probable discharge Tuesday. They would like patient to go to [facility] for LTC. A referral has been made to and family was at the facility today. This CM spoke to Simran, kiln charger, who reported that a final decision about admission won't be made until Tuesday when Aviva, Rey, returns. I left a message with Gallo that it would be good for family to have another LTC option available in case decides not to admit. Date Signed: 07/24/2017 06:17 PM Electronically Signed By:Farzaneh Deluna LCSW [facility] CM Progress Note CM Note CM Note Notes: Patient discharged to [facility]. I spoke with her daughter multiple times today regarding the discharge: daughter will go to facility [facility] to meet with patient and fill out paperwork. Also, daughter (Jessica) was concerned about a document she needed to get the joystick on patient's electronic wheelchair fixed. She said she would fax it to me, but I never received it. I suggested that she send it to [facility] to get it handled in a more timely manner. She was also wondering about some "removable casts" for her mother's legs; per ortho note, patient has splints in place that need to remain until her f/u appointment with him in 1-2 weeks. Transport was via [facility] stretcher at 1500 today. Patient's son Gallo also notified. Date Signed: 07/25/2017 04:39 PM Electronically Signed By:Tyra Feliz RN Intervention Information Intervention Type:*Incorrect Registration Date of Service:07/16/2017 05:54 AM Patient Type:Observation Staff Member:CHRISTINE Boston, Katerin Hours: Discipline: Severity: Comment:
--- NOTE | 2017-07-25 17:51 | GDS ---
[f rep st] DISCHARGE SUMMARY DISCHARGE DIAGNOSES: 1. Bilateral tibial-fibular fractures. 2. Advanced multiple sclerosis. 3. Acute respiratory failure. 4. Aspiration pneumonia. 5. Hypotension. 6. Metabolic encephalopathy. 7. History of deep vein thrombosis. 8. Chronic obstructive pulmonary disease. CONSULTATIONS: 1. Dr. Boubacar Parker. 2. Dr. Nghia Vitale. PHYSICAL EXAM: GENERAL: The patient is alert. VITAL SIGNS: Afebrile at 36.4, pulse is 86, respira tory rate 16, blood pressure is 126/66. She is saturating 97% on 3 L. I have seen and evaluated the patient on the day of discharge. HOSPITAL COURSE: The patient is a 77-year-old female who presented to the hospital with complaints o f bilateral leg pain. She was evaluated and diagnosed with: 1. Bilateral tibial-fibular fractures. She received a consultation from Orthopedics. Splinting was recommended with a nonoperative option. She is to be nonweightbearing, and she is wheelchair-bound at baseline. 2. Advanced multiple sclerosis. The patient is close to her baseline with regard to this condition. 3. Acute respiratory failure. This is likely secondary to the patient's sedation level. This has i mproved, and she is saturating appropriately on 3 L. 4. Aspiration pneumonia. She has been treated with IV antibiotics during this hospitalization. 5. Hypotension. This has resolved. 6. Metabolic encephalopathy. The patient is awake and alert. 7. History of DVT. We have continued the patient's Coumadin with a therapeutic INR during this hosp ital course. DISPOSITION: The patient will be discharged to [facility] facility for further rehabilitation a nd management. There are no pending studies. DISCHARGE MEDICATIONS: Please refer to EMR form. I have not adjusted the patient's previously presc ribed home medications to the best of my knowledge. FOLLOWUP: Will be with her primary care physician, as well as Dr. Nghia Vitale of Orthopedics. I spent greater than 35 minutes in the care, coordination, and management of the patient's dispositio n. /[id number]/MODL
[2017-08-10] MEDS ORDERED: CHOLECALCIFEROL VIT D3 50,000 UNIT CAP PO SCH (14:30)
[2020-07-18] MEDS ORDERED: fentaNYL 75 MCG PATCH TD SCH (09:00)
== END 2017-07-25 15:22 | DRG 562 ==
LOC: EDUNIT# → INTOOBSV 21:53 → F3N 23:46 → OBSVTOIN 07-16 14:02 → F3N 07-18 09:56 → F2N 07-20 16:40 → F3N 07-22 16:38
PROVIDERS: ADMIT Internal Medicine; ATTEND Internal Medicine
PROC: 02HV33Z Insertion of Infusion Device into Superior Vena Cava, Percutaneous Approach (ICD-10-PCS; principal; 2017-07-21)
DX: S82.301A Unspecified fracture of lower end of right tibia, initial encounter for closed fracture (principal); S82.302A Unspecified fracture of lower end of left tibia, initial encounter for closed fracture; S82.831A Other fracture of upper and lower end of right fibula, initial encounter for closed fracture; S82.832A Other fracture of upper and lower end of left fibula, initial encounter for closed fracture; W05.0XXA Fall from non-moving wheelchair, initial encounter; Y92.129 Unspecified place in nursing home as the place of occurrence of the external cause; J69.0 Pneumonitis due to inhalation of food and vomit; J96.21 Acute and chronic respiratory failure with hypoxia; G93.41 Metabolic encephalopathy; G35 Multiple sclerosis; M81.0 Age-related osteoporosis without current pathological fracture; N31.9 Neuromuscular dysfunction of bladder, unspecified; K44.9 Diaphragmatic hernia without obstruction or gangrene; G89.29 Other chronic pain; D64.9 Anemia, unspecified; J43.9 Emphysema, unspecified; Z66 Do not resuscitate; Z51.5 Encounter for palliative care; Z87.01 Personal history of pneumonia (recurrent); Z79.01 Long term (current) use of anticoagulants; Z86.718 Personal history of other venous thrombosis and embolism; Z87.440 Personal history of urinary (tract) infections; Z99.81 Dependence on supplemental oxygen; Z96.0 Presence of urogenital implants; Z23 Encounter for immunization
CPT/HCPCS: 92526-GN; 92610-GN; 97161-GP; 97166-GO; 97530-GP; C1751; G0008; G0378; G8984-GP-CK; G8985-GP-CJ; G8986-GP-CJ; G8987-GO-CM; G8988-GO-CM; G8989-GO-CM; G8996-GN-CK; G8997-GN-CI; G8998-GN-CI; J1335; J1885; J1940; J2310; J3010; P9041

== ENCOUNTER 2018-01-12 19:59 | Inpatient (IN) | payer OTHER, MEDICAID ==
--- NOTE | 2018-01-12 20:15 | EDPHY ---
HPI/HX/ROS/PE/MDM Narrative: CHIEF COMPLAINT: Fever, hypokalemia 2.8 HISTORY OF PRESENT ILLNESS: The patient is a wheelchair-bound 77 y/o female arriving via EMS from her assisted living facility for evaluation of fever and hypokalemia of 2.8 on lab work yesterday. Her medical history includes advanced multiple sclerosis, CHF, UTIs, multiple admissions for pneumonia and encephalopathy, cellulitis with multiple pressure ulcers, respiratory failure, and DVT. Outpatient lab work from yesterday showed a potassium of 2.8 and facility states she was febrile today. History from patient is limited, but she denies pain and reports a productive cough. Family now at bedside reports patient was recently placed on morphine for chronic pain that may be making her more somnolent and decreasing her SpO2. Her Fentanyl patch was decreased yesterday. Family also states she's had a fever and cough for 1-2 days and a chest x-ray yesterday showed fluid in her lungs. Due to this, the facility increased her Lasix and placed her on guaifenesin and albuterol for her cough. Her Coumadin was discontinued yesterday due to difficulty obtaining an appropriate INR. Daughter notes that the patient was confused earlier today, and certainly not herself. She was somewhat combative with the assisted staff which is very atypical. REVIEW OF SYSTEMS: Aside from elements discussed in the HPI, a comprehensive 10-point review of systems was reviewed and is negative. PAST MEDICAL HISTORY: 1. Advanced Multiple Sclerosis 2. CHF 3. Pneumonia with multiple admissions 4. DVT 5. Cellulitis 6. C. diff 7. UTIs 8. Neurogenic bladder 9. Bilateral tib/fib fractures 07/15/17, treated nonoperatively 10. Metabolic encephalopathy with multiple admissions 11. COPD 12. Respiratory failure with continuous O2 2LPM 13. Multiple pressure ulcers Prior medical record reviewed including admission 07/15/17 for leg fractures. SOCIAL HISTORY: Lives at [facility]. Wheelchair-bound. DNR - Selective Treatment Only. VITAL SIGNS: Reviewed by me. Febrile. O2 sat on her typical 2 L was 84% on arrival. GENERAL: Cachectic with contractures of lower extremities, hypoxemic on room air. Difficult to examine as patient cannot fully participate. HEENT: Atraumatic. Eyes: No icterus, no injection. Mouth: moist mucous membranes. No erythema or lesions. Neck: supple with no adenopathy. LUNGS: Difficult exam as patient can't take a deep breath or sit up. Crackles on left anterior chest. CARDIAC: Tachycardic rate and rhythm, no rubs, murmurs or gallops. ABDOMEN: Soft, nontender, nondistended, bowel sounds hypoactive. : Incontinent of stool, suprapubic catheter in place. BACK: No CVA tenderness. EXTREMITIES: Extremity contractures and atrophy. Lower extremities wrapped in specialized bandages. NEURO:Somnolent, 1-2 word answers, oriented x2. SKIN: Hot and dry, no rash, erythema from early pressure wound along lower thoracic spine, area of skin breakdown on left ischium, pressure wounds of right heels with dressing in place. PSYCHIATRIC: Difficult to assess Portions of this note were transcribed by a outside medical sales representative. I personally performed a history, physical exam, medical decision making, and confirmed accuracy of information the transcribed note. ED Course: This is a wheelchair-bound 77 y/o female with multiple comorbidities who presents with fever and hypokalemia of 2.8 on outpatient labs yesterday. She has multiple prior admissions here related to UTI, pneumonia, and metabolic encephalopathy. She is tachycardic, hypoxemic, hot to the touch, and has some crackles on limited auscultation. She has multiple pressure wounds. Plan for IV , sepsis labs, UA, EKG, chest x-ray. 1L IV NS ordered. The 12 lead EKG was interpreted by myself. Sinus rhythm rate 98. See hard copy and/or "tracemaster" electronic copy for interpretation. Chest x-ray: Mild cardiomegaly, suggestion of mild fluid overload, no definitive pneumonia, bilateral the lower lobe atelectasis probable. Laboratory evaluation demonstrates mildly elevated white count at 11, potassium 3.4, lactic acid 1.7, significant urinary findings including positive nitrates, 4+ bacteria, 50-182 red cells per high-power field, 50-182 white cells per high- power field, and leukocyte esterase. Review of the patient's prior records demonstrates a history of extended spectrum beta-lactam resistant urinary tract infections with E coli. Patient will be admitted to the hospital for urinary tract infection, fever, rule out pneumonia, increased O2 requirements. Sepsis Evaluation Note: The patient presents to the ED with potential infection identified as pneumonia and/or urinary tract infection. The patient did have evidence of sepsis with temperature greater than 38 degree Celsius, heart rate greater than 90. Patient did not have evidence of end-organ dysfunction. MDM: Differential diagnosis for fever in adults was considered including but not limited to pneumonia, urinary tract infection, viral syndrome, and influenza. - Data Points Imaging Results: Imaging Impressions Chest X-Ray 01/12/18 20:39 Impression: 1. Suspect airways disease, with markings exaggerated by shallow inspiration. Basilar opacities are probably atelectasis although pneumonia cannot be excluded. 2. Low-grade congestive heart failure is suspected, without bud pulmonary edema. 3. See above report for additional findings. Imaging: I viewed and interpreted images myself Laboratory Results: Laboratory Results 01/12/18 20:17 01/12/18 20:17 01/12/18 01/12/18 01/12/18 21:57 20:17 20:17 WBC RBC Hgb Hct MCV MCH MCHC RDW Plt Count MPV Neut % (Auto) Lymph % (Auto) Bertie % (Auto) Eos % (Auto) Baso % (Auto) Nucleat RBC Rel Count Absolute Neuts (auto) Absolute Lymphs (auto) Absolute Monos (auto) Absolute Eos (auto) Absolute Basos (auto) Absolute Nucleated RBC Immature Gran % Immature Gran # PT 31.6 SEC H SEC (12.0-15.0) INR 3.08 H (0.83-1.16) APTT 79.4 SEC H SEC (23.0-38.0) VBG Lactic Acid Sodium 140 mEq/L mEq/L (135-145) Potassium 3.4 mEq/L L mEq/L (3.5-5.2) Chloride 94 mEq/L L mEq/L (97-110) Carbon Dioxide 35 mEq/l H mEq/l (22-31) Anion Gap 11 mEq/L mEq/L (8-16) BUN 10 mg/dL mg/dL (7-23) Creatinine 0.6 mg/dL mg/dL (0.6-1.0) Estimated GFR > 60 Glucose 135 mg/dL H mg/dL (70-100) Calcium 9.5 mg/dL mg/dL (8.5-10.4) Total Bilirubin 1.1 mg/dL mg/dL (0.1-1.4) Urine Color LISANDRA Urine Appearance TURBID Urine pH 7.0 (5.0-7.5) Ur Specific [place] 1.010 (1.002-1.030) Urine Protein 1+ H (NEGATIVE) Urine Ketones NEGATIVE (NEGATIVE) Urine Blood 2+ H (NEGATIVE) Urine Nitrate POSITIVE H (NEGATIVE) Urine Bilirubin NEGATIVE (NEGATIVE) Urine Urobilinogen 4.0 EU H EU (0.2-1.0) Ur Leukocyte Esterase 3+ H (NEGATIVE) Urine RBC 50-182 /hpf H /hpf (0-3) Urine WBC 50-182 /hpf H /hpf (0-3) Ur Epithelial Cells 1+ /lpf /lpf (NONE-1+) Urine Bacteria 4+ /hpf H /hpf (NONE SEEN) Hyaline Casts 5-15 /lpf /lpf (0-1) Urine Mucus TRACE /lpf /lpf (NONE-1+) Urine Glucose NEGATIVE (NEGATIVE) 01/12/18 01/12/18 20:17 20:17 WBC 11.16 10^3/uL H 10^3/uL (3.80-9.50) RBC 4.53 10^6/uL 10^6/uL (4.18-5.33) Hgb 14.5 g/dL g/dL (12.6-16.3) Hct 42.6 % % (38.0-47.0) MCV 94.0 fL fL (81.5-99.8) MCH 32.0 pg pg (27.9-34.1) MCHC 34.0 g/dL g/dL (32.4-36.7) RDW 13.1 % % (11.5-15.2) Plt Count 215 10^3/uL 10^3/uL (150-400) MPV 9.3 fL fL (8.7-11.7) Neut % (Auto) 85.0 % H % (39.3-74.2) Lymph % (Auto) 8.4 % L % (15.0-45.0) Bertie % (Auto) 4.7 % % (4.5-13.0) Eos % (Auto) 1.3 % % (0.6-7.6) Baso % (Auto) 0.3 % % (0.3-1.7) Nucleat RBC Rel Count 0.0 % % (0.0-0.2) Absolute Neuts (auto) 9.49 10^3/uL H 10^3/uL (1.70-6.50) Absolute Lymphs (auto) 0.94 10^3/uL L 10^3/uL (1.00-3.00) Absolute Monos (auto) 0.53 10^3/uL 10^3/uL (0.30-0.80) Absolute Eos (auto) 0.14 10^3/uL 10^3/uL (0.03-0.40) Absolute Basos (auto) 0.03 10^3/uL 10^3/uL (0.02-0.10) Absolute Nucleated RBC 0.00 10^3/uL 10^3/uL (0-0.01) Immature Gran % 0.3 % % (0.0-1.1) Immature Gran # 0.03 10^3/uL 10^3/uL (0.00-0.10) PT INR APTT VBG Lactic Acid 1.7 mmol/L mmol/L (0.7-2.1) Sodium Potassium Chloride Carbon Dioxide Anion Gap BUN Creatinine Estimated GFR Glucose Calcium Total Bilirubin Urine Color Urine Appearance Urine pH Ur Specific [place] Urine Protein Urine Ketones Urine Blood Urine Nitrate Urine Bilirubin Urine Urobilinogen Ur Leukocyte Esterase Urine RBC Urine WBC Ur Epithelial Cells Urine Bacteria Hyaline Casts Urine Mucus Urine Glucose General Time Seen by Provider: 01/12/18 20:01 Initial Vital Signs: Initial Vital Signs Temperature (C) 38.3 C 01/12/18 20:05 Heart Rate 102 H 01/12/18 20:05 Respiratory Rate 22 H 01/12/18 20:05 Blood Pressure 131/80 H 01/12/18 20:05 O2 Sat (%) 84 L 01/12/18 20:05 O2 Delivery Mode Nasal Cannula O2 (L/minute) 2 Allergies/Adverse Reactions: clindamycin [Clindamycin] Allergy (Severe, Verified 01/12/18 20:10) Abdominal Pain Sulfa (Sulfonamide Antibiotics) Allergy (Severe, Verified 01/12/18 20:10) Unknown Home Medications: Medication Instructions Recorded Baclofen [Baclofen 10 mg (*)] 10 mg PO Q6H PRN 09/20/12 Polyethylene Glycol 3350 [Miralax 17 g PO DAILY 12/19/12 17 gm (*)] Potassium Cl [Klor-Con 10 meq (RX)] 20 meq PO DAILY 09/20/12 Acetaminophen 650 mg RC Q4H PRN 05/16/16 Albuterol [Proventil Neb] 2.5 mg IH Q2H PRN 05/16/16 Bisacodyl [Dulcolax] 10 mg RC DAILY PRN 05/16/16 Calcium Carbonate [Tums 500MG (*)] 1,000 mg PO QID PRN 05/16/16 Cholecalciferol Vit D3 [Vitamin D3 50,000 unit PO Q30D 05/16/16 (*)] Escitalopram Oxalate [Lexapro 10 5 mg PO DAILY 05/16/16 MG] Folic Acid [Folic Acid 1 MG (*)] 1 mg PO DAILY 05/16/16 Furosemide [Lasix 20 MG (*)] 40 mg PO DAILY 05/16/16 Polyvinyl Alcohol [Artificial 1 drop EACHEYE Q4H PRN 05/16/16 Tears] Sodium Chloride [Deep Sea] 2 sprays EACHNARE QID PRN 05/16/16 Warfarin Sodium [Coumadin 2.5MG 2.5 mg PO SUTUTHSA@16 05/16/16 (*)] traZODone [traZODONE 50MG (*)] 25 mg PO HS 05/16/16 Glatiramer Acetate [Copaxone] 20 mg SQ DAILY 07/15/17 Acetaminophen 650 mg RC Q6 PRN 07/16/17 Acetaminophen [Tylenol 325mg (*)] 325 mg PO TID 07/16/17 Benzocaine/Menthol 15/4 [Cepacol 1 each PO Q2H PRN 07/16/17 Lozenge] Gabapentin [Neurontin 400 MG (*)] 1,200 mg PO TID 07/16/17 Lidocaine 5% [Lidoderm 5% Patch] 2 each TD DAILY 07/16/17 Magnesium Hydroxide [Milk of 30 ml PO DAILY PRN 07/16/17 Magnesia] Ondansetron Odt [Zofran Odt 4 mg 4 mg PO TID PRN 07/16/17 (*)] Phenazopyridine HCl [Pyridium] 100 mg PO TID PRN 07/16/17 Warfarin Sodium [Coumadin 3MG (*)] 3 mg PO MWF@16 07/16/17 guaiFENesin/DEXTROMETHORPHAN 10 ml PO Q6H PRN 07/16/17 [Robitussin Dm Oral Liquid (*)] oxyCODONE ORAL SOLUTION 7.5 mg PO Q3H PRN 07/16/17 [Roxicodone Intensol] Patch Removal 1 ea TP HS 07/20/17 Ibuprofen [Motrin (*)] 800 mg PO Q8HRS tab 07/25/17 Ipratropium/Albuterol [Duoneb (*)] 3 ml IH Q6HRS deyvial 07/25/17 clonazePAM [Klonopin (*)] 0.25 mg PO HS tab 07/25/17 fentaNYL [Duragesic 25 MCG Patch 25 mcg TD Q72H patch 07/25/17 (*)] Nitrofurantoin Macrocrystal 100 mg PO BID #20 capsule 01/12/18 [Nitrofurantoin] Departure - Departure Disposition: [facility] Acute Clinical Impression: Acute lower urinary tract infection, Acute confusion Fever Qualifiers: Fever type: unspecified Qualified Code(s): R50.9 - Fever, unspecified Condition: Fair Report Scribed for: Leti Clark Report Scribed by: Sonja Rae Date of Report: 01/12/18 Time of Report: 20:49
--- NOTE | 2018-01-12 20:38 | CPEKG ---
Heart Rate: 98 RR Interval: 612 P-R Interval: 152 QRSD Interval: 102 QT Interval: 364 QTC Interval: 465 P [place]: 22 QRS [place]: -75 T Wave [place]: 23 EKG Severity - ABNORMAL ECG - EKG Impression: SINUS RHYTHM EKG Impression: LAD, CONSIDER LEFT ANTERIOR FASCICULAR BLOCK EKG Impression: CONSIDER ANTERIOR INFARCT EKG Impression: BORDERLINE T ABNORMALITIES, ANTERIOR LEADS Electronically Signed By: Leti Clark 12-Jan-2018 22:04:29
[2018-01-12 20:44] LABS: PLATELET COUNT 215 10^3/uL (150-400)
[2018-01-12 21:27] LABS: INR 3.08 (0.83-1.16); PROTIME(PATIENT) 31.6 SEC (12.0-15.0)
[2018-01-12] MEDS ORDERED: ALBUTEROL 3 ML DEYVIAL IH ONE (22:52)
[2018-01-12] MEDS ORDERED: ERTAPENEM 1 GM VIAL IV ONE (22:54)
[2018-01-12] MEDS ORDERED: NS 500 ML IV ONE (23:02)
[2018-01-12] MEDS ORDERED: ONDANSETRON 4 MG/2 ML VIAL IVP PRN (23:18)
[2018-01-12] MEDS ORDERED: ONDANSETRON DISINTEGRATING 4 MG TAB PO PRN (23:18)
[2018-01-12] MEDS ORDERED: ACETAMINOPHEN 325 MG TAB PO PRN (23:18)
[2018-01-12] MEDS ORDERED: ALBUTEROL 3 ML DEYVIAL IH PRN (23:20)
[2018-01-12] MEDS ORDERED: OXYCODONE/APAP 5/325 TAB PO ONE (23:26)
[2018-01-12] MEDS ORDERED: IBUPROFEN 200 MG TAB PO ONE (23:26)
--- NOTE | 2018-01-13 01:23 | PDGENHP ---
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 Patient was brought to ED after her facility reported a fever and AMS. Patient denies specific symptoms to me aside from feeling "terrible" and having pain "all over". Her daughter states that her mental status at this point is essentially at baseline. In the ED she was indeed febrile on arrival. The remainder or her work-up is only remarkable for a very dirty UA in the setting of chronic SPT. History Information - Allergies/Home Medication List Allergies/Adverse Reactions: clindamycin [Clindamycin] Allergy (Severe, Verified 01/12/18 20:10) Abdominal Pain Sulfa (Sulfonamide Antibiotics) Allergy (Severe, Verified 01/12/18 20:10) Unknown Home Medications: Baclofen [Baclofen 10 mg (*)] 10 mg PO Q6H PRN 09/20/12 [Last Taken 07/16/17] Polyethylene Glycol 3350 [Miralax 17 gm (*)] 17 g PO DAILY 09/20/12 [Last Taken 07/15/17] Potassium Cl [Klor-Con 10 meq (RX)] 20 meq PO DAILY 09/20/12 [Last Taken ] Acetaminophen 650 mg RC Q4H PRN 05/16/16 [Last Taken 07/11/17] Albuterol [Proventil Neb] 2.5 mg IH Q2H PRN 05/16/16 [Last Taken Unknown] Bisacodyl [Dulcolax] 10 mg RC DAILY PRN 05/16/16 [Last Taken Unknown] Calcium Carbonate [Tums 500MG (*)] 1,000 mg PO QID PRN 05/16/16 [Last Taken Unknown] Cholecalciferol Vit D3 [Vitamin D3 (*)] 50,000 unit PO Q30D 05/16/16 [Last Taken 07/10/17] Escitalopram Oxalate [Lexapro 10 MG] 5 mg PO DAILY 05/16/16 [Last Taken 07/15/17 ] Folic Acid [Folic Acid 1 MG (*)] 1 mg PO DAILY 05/16/16 [Last Taken 07/15/17] Furosemide [Lasix 20 MG (*)] 40 mg PO DAILY 05/16/16 [Last Taken 07/15/17] Polyvinyl Alcohol [Artificial Tears] 1 drop EACHEYE Q4H PRN 05/16/16 [Last Taken Unknown] Sodium Chloride [Deep Sea] 2 sprays EACHNARE QID PRN 05/16/16 [Last Taken Unknown] Warfarin Sodium [Coumadin 2.5MG (*)] 2.5 mg PO SUTUTHSA@16 05/16/16 [Last Taken Unknown] traZODone [traZODONE 50MG (*)] 25 mg PO HS 05/16/16 [Last Taken Unknown] Glatiramer Acetate [Copaxone] 20 mg SQ DAILY 07/15/17 [Last Taken 07/15/17] Acetaminophen 650 mg RC Q6 PRN 07/16/17 [Last Taken 07/04/17] Acetaminophen [Tylenol 325mg (*)] 325 mg PO TID 07/16/17 [Last Taken 07/16/17] Benzocaine/Menthol 15/01 [Cepacol Lozenge] 1 each PO Q2H PRN 07/16/17 [Last Taken Unknown] Gabapentin [Neurontin 400 MG (*)] 1,200 mg PO TID 07/16/17 [Last Taken 07/15/17] Lidocaine 5% [Lidoderm 5% Patch] 2 each TD DAILY 07/16/17 [Last Taken 07/15/17] Magnesium Hydroxide [Milk of Magnesia] 30 ml PO DAILY PRN 07/16/17 [Last Taken 07/15/17] Ondansetron Odt [Zofran Odt 4 mg (*)] 4 mg PO TID PRN 07/16/17 [Last Taken 07/05] Phenazopyridine HCl [Pyridium] 100 mg PO TID PRN 07/16/17 [Last Taken Unknown] Warfarin Sodium [Coumadin 3MG (*)] 3 mg PO MWF@16 07/16/17 [Last Taken 07/15/17] guaiFENesin/DEXTROMETHORPHAN [Robitussin Dm Oral Liquid (*)] 10 ml PO Q6H PRN [Last Taken Unknown] oxyCODONE ORAL SOLUTION [Roxicodone Intensol] 7.5 mg PO Q3H PRN 07/16/17 [Last Taken 07/15/17] Patch Removal 1 ea TP 07/20/17 [Last Taken Unknown] I have personally reviewed and updated: family history, medical history - Past Medical History DVT Additional medical history: MS - Family History Positive for: cancer - Social History Smoking Status: Unknown if ever smoked Review of Systems Review of Systems: ROS: 10pt was reviewed & negative except for what was stated in HPI & below Physical Exam Physical Exam: Temp Pulse Resp BP Pulse Ox 37.1 C 90 16 127/74 H 94 01/13/18 00:54 01/13/18 00:54 01/13/18 00:54 01/13/18 00:54 01/13/18 00:54 O2 (L/minute) 3 Constitutional: chronically ill appearing, uncomfortable Eyes: PERRL, EOMI Ears, Nose, Mouth, Throat: moist mucous membranes, no oral mucosal ulcers Cardiovascular: regular rate and rhythym, systolic murmur Respiratory: no respiratory distress, reduced air movement Gastrointestinal: normoactive bowel sounds, soft, non-tender abdomen, other ( SPT w/o clear signs of infection at site of insertion) Skin: warm, normal color Psychiatric: depressed, flat affect Lab Data & Imaging Review 01/12/18 20:17 01/12/18 20:17 WBC 11.16 10^3/uL (3.80-9.50) H 01/12/18 20:17 RBC 4.53 10^6/uL (4.18-5.33) 01/12/18 20:17 Hgb 14.5 g/dL (12.6-16.3) 01/12/18 20:17 Hct 42.6 % (38.0-47.0) 01/12/18 20: MCV 94.0 fL (81.5-99.8) 01/12/18 20:17 MCH 32.0 pg (27.9-34.1) 01/12/18 20: MCHC 34.0 g/dL (32.4-36.7) 01/12/18 20: RDW 13.1 % (11.5-15.2) 01/12/18 20:17 Plt Count 215 10^3/uL (150-400) 01/12/18 20:17 MPV 9.3 fL (8.7-11.7) 01/12/18 20:17 Neut % (Auto) 85.0 % (39.3-74.2) H 01/12/18 20:17 Lymph % (Auto) 8.4 % (15.0-45.0) L 01/12/18 20:17 [place] % (Auto) 4.7 % (4.5-13.0) 01/12/18 20:17 Eos % (Auto) 1.3 % (0.6-7.6) 01/12/18 20: Baso % (Auto) 0.3 % (0.3-1.7) 01/12/18 20:17 Nucleat RBC Rel Count 0.0 % (0.0-0.2) 01/12/18 20: Absolute Neuts (auto) 9.49 10^3/uL (1.70-6.50) H 01/12/18 20:17 Absolute Lymphs (auto) 0.94 10^3/uL (1.00-3.00) L 01/12/18 20:17 Absolute Monos (auto) 0.53 10^3/uL (0.30-0.80) 01/12/18 20:17 Absolute Eos (auto) 0.14 10^3/uL (0.03-0.40) 01/12/18 20:17 Absolute Basos (auto) 0.03 10^3/uL (0.02-0.10) 01/12/18 20: Absolute Nucleated RBC 0.00 10^3/uL (0-0.01) 01/12/18 20: Immature Gran % 0.3 % (0.0-1.1) 01/12/18 20: Immature Gran # 0.03 10^3/uL (0.00-0.10) 01/12/18 20:17 PT 31.6 SEC (12.0-15.0) H 01/12/18 20:17 INR 3.08 (0.83-1.16) H 01/12/18 20:17 APTT 79.4 SEC (23.0-38.0) H 01/12/18 20:17 VBG Lactic Acid 1.7 mmol/L (0.7-2.1) 01/12/18 20:17 Sodium 140 mEq/L (135-145) 01/12/18 20:17 Potassium 3.4 mEq/L (3.5-5.2) L 01/12/18 20:17 Chloride 94 mEq/L (97-110) L 01/12/18 20:17 Carbon Dioxide 35 mEq/l (22-31) H 01/12/18 20:17 Anion Gap 11 mEq/L (8-16) 01/12/18 20:17 BUN 10 mg/dL (7-23) 01/12/18 20:17 Creatinine 0.6 mg/dL (0.6-1.0) 01/12/18 20:17 Estimated GFR > 60 01/12/18 20:17 Glucose 135 mg/dL (70-100) H 01/12/18 20:17 Calcium 9.5 mg/dL (8.5-10.4) 01/12/18 20:17 Total Bilirubin 1.1 mg/dL (0.1-1.4) 01/12/18 20:17 Urine Color LISANDRA 01/12/18 21:57 Urine Appearance TURBID 01/12/18 21:57 Urine pH 7.0 (5.0-7.5) 01/12/18 21:57 Ur Specific [place] 1.010 (1.002-1.030) 01/12/18 21:57 Urine Protein 1+ (NEGATIVE) H 01/12/18 21:57 Urine Ketones NEGATIVE (NEGATIVE) 01/12/18 21:57 Urine Blood 2+ (NEGATIVE) H 01/12/18 21:57 Urine Nitrate POSITIVE (NEGATIVE) H 01/12/18 21:57 Urine Bilirubin NEGATIVE (NEGATIVE) 01/12/18 21:57 Urine Urobilinogen 4.0 EU (0.2-1.0) H 01/12/18 21:57 Ur Leukocyte Esterase 3+ (NEGATIVE) H 01/12/18 21:57 Urine RBC 50-182 /hpf (0-3) H 01/12/18 21:57 Urine WBC 50-182 /hpf (0-3) H 01/12/18 21:57 Ur Epithelial Cells 1+ /lpf (NONE-1+) 01/12/18 21:57 Urine Bacteria 4+ /hpf (NONE SEEN) H 01/12/18 21:57 Hyaline Casts 5-15 /lpf (0-1) 01/12/18 21:57 Urine Mucus TRACE /lpf (NONE-1+) 01/12/18 21:57 Urine Glucose NEGATIVE (NEGATIVE) 01/12/18 21:57 Imaging Review: Imaging Impressions Chest X-Ray 01/12/18 20:39 Impression: 1. Suspect airways disease, with markings exaggerated by shallow inspiration. Basilar opacities are probably atelectasis although pneumonia cannot be excluded. 2. Low-grade congestive heart failure is suspected, without bud pulmonary edema. 3. See above report for additional findings. Visualized and Interpreted EKG results: Yes EKG Interpretation: Positive for: normal sinsus rhythm, other (LAFB) Assessment & Plan Assessment: 77 yo F w/ MS and hx of DVT presents with fever and AMS, possibly 2/2 UTI. Plan: 1. Fever - Tmax of 38.3 in the ED but no e/o sepsis physiology currently. Patient has no localizing symptoms. Source could be urinary as UA is very dirty but this is in the setting of a suprapubic catheter. Review of previous urine cultures notable for significant hx of ESBL organisms. - Will treat with Invanz 1 g qD for now, follow urine cultures - Blood cultures, respiratory PCR ordered 2. Advanced MS c/b chronic pain - Patient uses fentanyl patch (50 mcg) as well as oxycodone and morphine IR for breakthrough pain. Would continue home regimen once medications are reconciled, but decrease as able as this may be contributing to delirium. 3. Delirium - Now back at normal mental status per family. This could be due to infection (UTI?) with contribution from polypharmacy. 4. Hx of DVT - On warfarin, INR 3 on admission. Monitor daily INR. 5. 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 CXR shows atelectasis, I will order incentive spirometer. Diet - Regular pending swallow eval Code - Full Ppx - warfarin Dispo - Admit under observation status
[2018-01-13 04:03] LABS: PLATELET COUNT 190 10^3/uL (150-400)
[2018-01-13] MEDS ORDERED: oxyCODONE IR 5 MG TAB PO PRN (04:08)
[2018-01-13 04:13] LABS: INR 2.98 (0.83-1.16); PROTIME(PATIENT) 30.8 SEC (12.0-15.0)
[2018-01-13] MEDS ORDERED: POTASSIUM CL 20 MEQ TAB PO ONE ×2 (05:54→09:45)
[2018-01-13] MEDS ORDERED: PROTOCOL POTASSIUM 1 DOSE MISC PRN (08:37)
--- NOTE | 2018-01-13 08:53 | WOCRNPDOC ---
WOCRN Advanced Assessment Note - Skin Integrity Problem, Advanced Assess Right Heel Pressure Injury Dressing Type: Collagen, Other Other Dressing Type: Optifoam Dressing Description: Clean/Dry, Intact Exudate Amount: Scant Exudate Color: Reddish/Yellow Exudate Characteristic(s): Serosanguinous Integumentary Issue Intervention: Visualized Under Dressing Miley Wound Tissue: Blanching, Intact Miley Wound Swelling: None Wound Bed Color: Red, White (macerated tissue) Wound Bed Constitution: Red/[place] - Non Granular Tissue Wound Edges: Epithelizing Site Odor: None Site Measurement - Head-to-Toe Length X Width X Depth (cm): 0.6cmx1.1cmx0.1cm Pressure Injury Stage: Stage 3 (currently w/ appearance of stage 2) Pressure Injury Present on Admit: Yes (hospitalist notifed) Skin Integrity Problem Comment: Healing pressure injury on patient's R heel, currently w/ appearance of stage 2. However, scar tissue evident along margins, indicative of a full-thickness injury, likely stage 3. 100% non-granular smooth tissue w/ some white, macerated margins, no apparent necrosis evident. Periwound tissue is blanching and intact, no swelling. Patient admitted with pressure-relieving boots, and this should continue while she is here, as she has contractures to both legs. Will write dressing change order for nursing to apply.
--- NOTE | 2018-01-13 09:56 | HOSPPROG ---
Hospitalist Progress Note Assessment/Plan: Fever - presumed 2/2 UTI in setting of chronic SPC. Prior UCx's reviewed with ESBL e coli. 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 Had brief increase in O2 requirement to 10 LPM (query positional issue?), weaned back to 4 LPM which is baseline. CXR pers reviewed / interp - airway dz noted, suspect atelectasis at bases - scheduled duonebs, prn alb nebs - check bnp - IS Advanced MS with chronic pain - Cont Fentanyl, oxycodone, decrease long acting morphine due to delirium Delirium - Seems near baseline now, though will decrease MS contin as above given high risk opioid dosing. Hx of DVT - On warfarin, INR 3. Monitor daily INR. Hypokalemia - check mag. Replace, start electrolyte protocol. Diet - Regular pending swallow eval, edentulous Code - Full Ppx - warfarin Dispo - Obs Subjective: PT up in chair. Denies CP or SOB. Sometimes has a hard time clearing secretions. Does endorse some suprapubic discomfort. No fevers overnight. Objective: Vital Signs Temp Pulse Resp BP Pulse Ox 36.6 C 77 15 103/60 97 01/13/18 08:38 01/13/18 08:38 01/13/18 08:38 01/13/18 08:38 01/13/18 08:38 Microbiology 01/12/18 23:07 Respiratory Panel (PCR) - Final Nasal, Sinus - Swab No Organism Detected Laboratory Results 01/13/18 03:48 01/13/18 03:48 01/12/18 01/13/18 01/14/18 05:59 05:59 05:59 Intake Total 600 Output Total 700 Balance -100 PT 30.8 SEC (12.0-15.0) H 01/13/18 03:48 INR 2.98 (0.83-1.16) H 01/13/18 03:48 - Physical Exam Constitutional: no apparent distress Eyes: PERRL Ears, Nose, Mouth, Throat: moist mucous membranes Cardiovascular: regular rate and rhythym Respiratory: no respiratory distress, reduced air movement Gastrointestinal: normoactive bowel sounds, soft, non-tender abdomen Skin: warm Musculoskeletal: generalized weakness, other (1+ b/l LE edema) Neurologic: other (able to do 5 digits forward) Psychiatric: poor memory ICD10 Worksheet Patient Problems: Problems Problem Status Onset Acute confusion Acute Acute lower urinary tract infection Acute Fever Acute Infection due to resistant organism Active Bilateral tibial fractures Acute ESBL (extended spectrum beta-lactamase) producing bacteria infection Acute 04/18 Fecal impaction Acute Pneumonia Acute
[2018-01-13] MEDS ORDERED: NYSTATIN POWDER 15 GM BTL TP PRN (10:15)
[2018-01-13] MEDS ORDERED: SODIUM CL NASAL 45 ML BTL EACHNARE PRN (10:15)
[2018-01-13] MEDS ORDERED: fentaNYL 50 MCG PATCH TD SCH (10:15)
[2018-01-13] MEDS ORDERED: PHENAZOPYRIDINE HCL 100 MG TAB PO PRN (10:15)
[2018-01-13] MEDS ORDERED: morphINE SR 30 MG TAB PO SCH ×2 (10:15→10:23)
[2018-01-13] MEDS ORDERED: SODIUM CL NASAL 45 ML BTL NS PRN (10:15)
[2018-01-13] MEDS: IPRATROPIUM/ALBUTEROL 3 ML DEYVIAL IH SCH ×3 (10:38→20:44)
[2018-01-13] MEDS: POTASSIUM CL 20 MEQ TAB PO SCH (10:39)
[2018-01-13] MEDS: GLATIRAMER ACETATE 20 MG SQ SCH (10:44)
--- NOTE | 2018-01-13 12:01 | PDMN ---
Medical Necessity Medical necessity: Pt meets INPT criteria per MD as of 01/13/18 (est. 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
[2018-01-13] MEDS: FUROSEMIDE 20 MG TAB PO SCH ×2 (12:26→14:59)
[2018-01-13] MEDS: morphINE SR 15 MG TAB PO SCH ×2 (12:26→21:33)
[2018-01-13] MEDS: DULoxetine 30 MG CAP PO SCH (12:27)
--- NOTE | 2018-01-13 13:35 | ASMTCMCOM ---
CM Note CM Note Notes: 01/13/2018 Case Management Note Reviewed pt during rounds this morning. Spoke with both daughters on the phone. Mercy can be reached at [phone]. Jessica can be reached at [phone]. Jessica is the [facility]. Pt lives at [facility] in [facility]. She has a private PT from the [facility] group come twice a week. All other cares are provided by [facility]. Faxed updates to [facility]. Case Management d/c poc: return to [facility]. Case Management to follow. Date Signed: 01/13/2018 01:34 PM Electronically Signed By:Anastasiia Isaacs RN
[2018-01-13] MEDS: oxyCODONE IR 5 MG TAB PO SCH ×2 (14:52→21:32)
[2018-01-13] MEDS: guaiFENesin 200 MG/10 ML UDL PO SCH ×3 (14:55→21:32)
[2018-01-13] MEDS: GABAPENTIN 250 MG/5 ML 30 ML BOTTLE PO SCH ×2 (14:59→21:35)
[2018-01-13] MEDS: SENNOSIDES/DOCUSATE SODIUM TAB PO SCH (21:32)
[2018-01-13] MEDS: POLYETHYLENE GLYCOL 3350 17 GM PKT PO SCH (21:33)
[2018-01-13] MEDS: ERTAPENEM 1 GM VIAL IV SCH (21:34)
[2018-01-13] MEDS ORDERED: POTASSIUM CL 10 MEQ TAB PO ONE (22:00)
[2018-01-14] MEDS: guaiFENesin 200 MG/10 ML UDL PO SCH ×6 (02:03→22:24)
[2018-01-14 04:52] LABS: PLATELET COUNT 188 10^3/uL (150-400)
[2018-01-14] MEDS: IPRATROPIUM/ALBUTEROL 3 ML DEYVIAL IH SCH ×4 (05:31→22:02)
[2018-01-14] MEDS: TERBINAFINE 30 GM CRTUBE TP SCH (06:40)
[2018-01-14] MEDS ORDERED: POTASSIUM CL 10 MEQ TAB PO ONE ×2 (07:54→19:38)
[2018-01-14] MEDS: GABAPENTIN 250 MG/5 ML 30 ML BOTTLE PO SCH ×3 (09:34→22:24)
[2018-01-14] MEDS: FUROSEMIDE 20 MG TAB PO SCH ×2 (09:35→12:19)
[2018-01-14] MEDS: SENNOSIDES/DOCUSATE SODIUM TAB PO SCH ×2 (09:37→22:24)
[2018-01-14] MEDS: POTASSIUM CL 20 MEQ TAB PO SCH (09:37)
[2018-01-14] MEDS: morphINE SR 15 MG TAB PO SCH ×2 (09:37→22:24)
[2018-01-14] MEDS: oxyCODONE IR 5 MG TAB PO SCH ×3 (09:37→22:25)
[2018-01-14] MEDS: DULoxetine 30 MG CAP PO SCH (09:37)
[2018-01-14] MEDS: GLATIRAMER ACETATE 20 MG SQ SCH (09:40)
[2018-01-14] MEDS: POLYETHYLENE GLYCOL 3350 17 GM PKT PO SCH ×2 (09:41→22:24)
--- NOTE | 2018-01-14 14:24 | HOSPPROG ---
Hospitalist Progress Note Assessment/Plan: # Acute UTI - in setting of chronic suprapubic catheter. History of ESBL e coli.- urine culture with gram-negative lactose and non lactose fermenting allyson - Cont Invanz, await Cx data - monitor Blood cultures - continue supportive care # chronic hypoxic respiratory failure 2/2 COPD - Uses 2-4 L/min O2 continuously , currently at baseline. Oxygen saturations 94% on 4 L CXR (personally reviewed and interpreted) airway inflammation suspected atelectasis at bases - scheduled duonebs, prn alb nebs - continue supplemental oxygen - IS # Advanced MS with chronic pain - Cont Fentanyl, oxycodone, decrease long acting morphine due to delirium # acute Delirium - Seems near baseline now -continue decreased MS contin # Hx of DVT - On warfarin, INR 2.9 - Monitor daily INR. Hypokalemia - check mag. Replace, start electrolyte protocol. Diet - Regular pending swallow eval, edentulous Code - Full Ppx - warfarin Dispo - greater than 2 midnights as the patient requires ongoing IV antibiotics we need to wait for speciation and sensitivities prior to discharge I have discussed the case with the RN we will have speech therapy re-evaluate as the patient does not like her dysphasia diet Subjective: Feeling better Objective: Vital Signs Temp Pulse Resp BP Pulse Ox 36.9 C 81 18 117/64 95 01/14/18 08:00 01/14/18 10:24 01/14/18 10:24 01/14/18 08:00 01/14/18 10:24 Microbiology 01/12/18 23:07 Respiratory Panel (PCR) - Final Nasal, Sinus - Swab No Organism Detected Laboratory Results 01/14/18 04:44 01/14/18 04:44 01/13/18 01/14/18 01/15/18 05:59 05:59 05:59 Intake Total 600 680 Output Total 700 700 Balance -100 -20 PT 30.8 SEC (12.0-15.0) H 01/13/18 03:48 INR 2.98 (0.83-1.16) H 01/13/18 03:48 - Physical Exam Constitutional: chronically ill appearing Eyes: anicteric sclera Ears, Nose, Mouth, Throat: moist mucous membranes Cardiovascular: regular rate and rhythym Respiratory: no respiratory distress, No expiratory wheeze Gastrointestinal: normoactive bowel sounds Genitourinary: no bladder fullness Skin: warm Musculoskeletal: No asymmetric calves Neurologic: AAOx3 Psychiatric: interacting appropriately Lymph, Heme, Immunologic: no cervical LAD ICD10 Worksheet Patient Problems: Problems Problem Status Onset Acute confusion Acute Acute lower urinary tract infection Acute Fever Acute Infection due to resistant organism Active Bilateral tibial fractures Acute ESBL (extended spectrum beta-lactamase) producing bacteria infection Acute 04/18 Fecal impaction Acute Pneumonia Acute
[2018-01-14] MEDS: ERTAPENEM 1 GM VIAL IV SCH (22:20)
[2018-01-15] MEDS: guaiFENesin 200 MG/10 ML UDL PO SCH ×3 (02:16→10:58)
[2018-01-15] MEDS: IPRATROPIUM/ALBUTEROL 3 ML DEYVIAL IH SCH ×2 (05:17→10:53)
[2018-01-15 05:25] LABS: INR 1.72 (0.83-1.16); PROTIME(PATIENT) 20.3 SEC (12.0-15.0)
[2018-01-15] MEDS: TERBINAFINE 30 GM CRTUBE TP SCH (05:33)
[2018-01-15 07:27] VITALS: BP 99/43
[2018-01-15] MEDS ORDERED: POTASSIUM CL 10 MEQ TAB PO ONE ×2 (08:26→11:00)
[2018-01-15] MEDS ORDERED: POTASSIUM CL 20 MEQ/15 ML UDCUP PO ONE (08:45)
--- NOTE | 2018-01-15 10:02 | PDIAF ---
- Diagnosis Diagnosis: uti Code Status: Do Not Resuscitate - Medication Management Discharge Medications: Medications to Continue on Transfer Polyethylene Glycol 3350 [Miralax 17 gm (*)] 17 g PO BID 09/20/12 [Last Taken ] Albuterol [Proventil Neb] 2.5 mg IH Q2H PRN 05/16/16 [Last Taken Unknown] Cholecalciferol Vit D3 [Vitamin D3 (*)] 50,000 unit PO Q30D 05/16/16 [Last Taken 07/10/17] Folic Acid [Folic Acid 1 MG (*)] 1 mg PO DAILY 05/16/16 [Last Taken 07/15/17] Furosemide [Lasix 20 MG (*)] 40 mg PO DAILY 05/16/16 [Last Taken 07/15/17] Sodium Chloride [Deep Sea] 2 sprays EACHNARE QID PRN 05/16/16 [Last Taken Unknown] Glatiramer Acetate [Copaxone] 20 mg SQ DAILY 07/15/17 [Last Taken 07/15/17] Ondansetron Odt [Zofran Odt 4 mg (*)] 4 mg PO TID PRN 07/16/17 [Last Taken 07/05] Ipratropium/Albuterol [Duoneb (*)] 3 ml IH Q6HRS deyvial 07/25/17 [Last Taken Unknown] DULoxetine [Cymbalta 30 MG (*)] 30 mg PO DAILY 01/13/18 [Last Taken Unknown] Furosemide [Lasix 20 MG (*)] 20 mg PO DAILY@01/13/18 [Last Taken Unknown] Gabapentin [Neurontin Oral Liquid] 1,200 mg PO BID 01/13/18 [Last Taken Unknown] Gabapentin [Neurontin Oral Liquid] 800 mg PO DAILY@01/13/18 [Last Taken Unknown] Ibuprofen [Motrin (*)] 600 mg PO TID PRN 01/13/18 [Last Taken Unknown] Multivitamins W-Minerals [Thera M Plus Tablet (*)] 1 each PO DAILY 01/13/18 [ Last Taken Unknown] Nystatin Powder [Mycostatin Powder] 1 julien TP TID PRN 01/13/18 [Last Taken Unknown] Phenazopyridine HCl [Pyridium] 100 mg PO TID PRN 01/13/18 [Last Taken Unknown] Potassium Cl [Klor-Con 20 meq (*)] 20 meq PO DAILY 01/13/18 [Last Taken Unknown] Sennosides/Docusate Sodium [Senna-S Tablet] 1 each PO BID 01/13/18 [Last Taken Unknown] Sodium Cl Nasal [[place] (*)] 1 spray NS BID PRN 01/13/18 [Last Taken Unknown] Terbinafine HCl [LamISIL AT Cream (*)] 1 julien TP DAILY06 01/13/18 [Last Taken Unknown] fentaNYL [Duragesic 50 MCG Patch (*)] 50 mcg TD Q72H 01/13/18 [Last Taken Unknown] guaiFENesin [Guaifenesin] 10 ml PO Q4HRS 01/13/18 [Last Taken Unknown] oxyCODONE IR [Oxycodone Ir (*)] 7.5 mg PO Q3HRS PRN 01/13/18 [Last Taken Unknown ] oxyCODONE IR [Oxycodone Ir (*)] 7.5 mg PO TID 01/13/18 [Last Taken Unknown] Nitrofurantoin Macrocrystal [Nitrofurantoin] 100 mg PO BID #6 capsule 01/15/18 [ Last Taken Unknown] levOFLOXACIN [Levofloxacin] 750 mg PO DAILY #3 tablet 01/15/18 [Last Taken Unknown] morphINE SR [Ms Contin/Oramorph 15 mg (*)] 15 mg PO BID #60 tab 01/15/18 [Last Taken Unknown] Discharge Medications: Refer to the Discharge Home Medication list for PRN reason. - Orders Services needed: Home Care, Registered Nurse, Physical Therapy, Occupational Therapy Home Care Face to Face: I certify that this patient was under my care and that I had the required [id number] encounter meeting the encounter requirements on the discharge day. My findings support the fact that the patient is homebound as defined in Home Care Face to Face Continued: CMS Chapter 7 Medicare Benefits Manual 30.1.1 , The condition of the patient is such that there exists a normal inability to leave home and consequently, leaving home would require a considerable and taxing effort. Isolation Type: Contact Isolation Diet Texture: Dysphagia 1 - Pureed, Letts Thick Liquids, Water Protocol, Meds Crushed in Puree Additional Instructions: Dressing change orders for R heel: please change q2 days and PRN. 1) cleanse w/ NS and gauze. 2) apply skin prep to periwound skin. 3) apply small amount of Hydrogel wound gel to wound bed. 4) tear off small piece of Endoform collagen and place in wound bed (may use other collagen-type product). 5) cover w/ Allevyn Life dressing, or other bordered foam. Continue w/ off-loading heel boots. Mervat Lazo, GIANNI - Follow Up Care Current Providers and Referrals: Patient,NotPresent [Unknown] - As per Instructions
[2018-01-15] MEDS: FUROSEMIDE 20 MG TAB PO SCH (10:28)
[2018-01-15] MEDS: SENNOSIDES/DOCUSATE SODIUM TAB PO SCH (10:29)
[2018-01-15] MEDS: oxyCODONE IR 5 MG TAB PO SCH (10:29)
[2018-01-15] MEDS: DULoxetine 30 MG CAP PO SCH (10:29)
[2018-01-15] MEDS: morphINE SR 15 MG TAB PO SCH (10:29)
[2018-01-15] MEDS: GABAPENTIN 250 MG/5 ML 30 ML BOTTLE PO SCH (10:30)
[2018-01-15] MEDS: GLATIRAMER ACETATE 20 MG SQ SCH (10:48)
[2018-01-15] MEDS: POLYETHYLENE GLYCOL 3350 17 GM PKT PO SCH (10:49)
[2018-01-15] MEDS: POTASSIUM CL 20 MEQ TAB PO SCH (11:05)
--- NOTE | 2018-01-15 13:55 | ASDISCHSUM ---
Discharge Information Plan Status:SNF Medically Cleared to Leave:01/15/2018 Discharge Date:01/15/2018 12:39 PM CM D/C Disposition:Intermediate Facility ADT D/C Disposition:Intermediate Facility Projected Discharge Date:01/15/2018 11:00 AM Transportation at D/C:ALS/BLS Discharge Delay Reason: Follow-Up Date:01/15/2018 11:00 AM Discharge Slot: Final Diagnosis: Placement Information Referral Type:*Jail/SNF Referral ID:[id number] Provider Name:[facility] Address 1:[address] Address 2: City:[place] Selection Factors: State:[place] Patient Contact Information Contact Name:YARA Relationship:Daughter Address:[address] City:[place] Alternate Phone: State/Zip Code:[place] [address] Email: Financial Information Financial Class:Medicare Primary Plan Desc:MEDICARE INPATIENT Primary Plan Number:[id number] Secondary Plan Desc:MED[place] Secondary Plan Number:[id number] Assessment Information [facility] CM Progress Note CM Note CM Note Notes: 01/13/2018 Case Management Note Reviewed pt during rounds this morning. Spoke with both daughters on the phone. Mercy can be reached at [phone]. Jessica can be reached at [phone]. Jessica is the [facility]. Pt lives at [facility] in [facility]. She has a private PT from the [id number] group come twice a week. All other cares are provided by [facility]. Faxed updates to [facility]. Case Management d/c poc: return to [facility]. Case Management to follow. Date Signed: 01/13/2018 01:34 PM Electronically Signed By:Anastasiia Isaacs RN Intervention Information
--- NOTE | 2018-01-15 17:21 | GDS ---
[f rep st] DISCHARGE SUMMARY DISCHARGE DIAGNOSES: Include: 1. Acute fever, secondary to urinary tract infection. 2. Acute encephalopathy, thought multifactorial. 3. Chronic hypoxic respiratory failure, secondary to chronic obstructive pulmonary disease. 4. Advanced multiple sclerosis. 5. Chronic suprapubic catheter. 6. History of deep venous thrombosis, status post completion of anticoagulation. HISTORY OF PRESENT ILLNESS: A 77-year-old female who presents from an outside nursing facility with complaints of fever and altered mental status. For details of patient's initial presentation, please see the History and Physical dated 01/12/2018. CONSULTATIVE SERVICES: None. PROCEDURES: None. HOSPITAL COURSE BY ISSUE: 1. Acute urinary tract infection. Patient does have a chronic suprapubic catheter with history of m ultidrug-resistant organisms. She presented with fever, leukocytosis, and encephalopathy. Urine was positive for infection. Culture isolated 2 bacteria, 1 Proteus, the other ESBL E coli. Patient was initially treated with 4 days of IV ertapenem. She is being transitioned to 2 oral antibiotics, 1 e ach, to cover the isolated bacteria based on their specific sensitivity profile. 2. Acute encephalopathy. The patient did receive active treatment for infection, fluid resuscitatio n, and did have a dose adjustment of her chronic pain medications, with a reduced dose of her long-ac ting MS Contin from 30 b.i.d. to 15 b.i.d. Patient has been on this reduced dose during this stay an d has had adequately controlled pain. We will discharge her on this newly adjusted dose with the hop e that her mentation in the outpatient setting will remain clear. 3. Advanced multiple sclerosis. Patient was continued on her home meds without alteration. She jett l need ongoing PT, OT, and supportive care. MEDICATIONS AT THE TIME OF DISPOSITION: Please reference the med rec printed on 01/15/2018. FOLLOWUP APPOINTMENTS: Include with her outpatient provider in the next 2-3 weeks for general post d isposition follow. PENDING STUDIES: At the time of this dictation include blood cultures drawn 01/12/2018 which are pre liminary, no growth to date. I spent greater than 30 minutes in the planning and coordination of this discharge. /[id number]/MODL
== END 2018-01-15 12:39 | DRG 698 ==
LOC: EDUNIT# → OBSVTOIN 22:56 → F2W 01-13 00:54 → F3E 01-13 20:30
PROVIDERS: ADMIT Student in an Organized Health Care Education/Training Program; ATTEND Hospitalist
DX: T83.510A Infection and inflammatory reaction due to cystostomy catheter, initial encounter (principal); N39.0 Urinary tract infection, site not specified; B96.20 Unspecified Escherichia coli [E. coli] as the cause of diseases classified elsewhere; B96.4 Proteus (mirabilis) (morganii) as the cause of diseases classified elsewhere; Z16.19 Resistance to other specified beta lactam antibiotics; G93.41 Metabolic encephalopathy; E87.6 Hypokalemia; G35 Multiple sclerosis; Z99.3 Dependence on wheelchair; L89.613 Pressure ulcer of right heel, stage 3; J44.9 Chronic obstructive pulmonary disease, unspecified; J96.11 Chronic respiratory failure with hypoxia; Z86.718 Personal history of other venous thrombosis and embolism
CPT/HCPCS: 92610-GN; G0378; G8996-GN-CK; G8997-GN-CJ; J1335; J7613

== ENCOUNTER 2018-07-27 13:18 | Inpatient (IN) | payer OTHER, MEDICAID ==
--- NOTE | 2018-07-27 13:40 | EDPHY ---
H & P Time Seen by Provider: 07/27/18 13:29 HPI/ROS: CHIEF COMPLAINT: Increased oxygen requirement HISTORY OF PRESENT ILLNESS: Patient is a 78-year-old female with a history of severe multiple sclerosis, chronic encephalopathy, COPD on 2 L at baseline whose had increasing O2 requirements over the last 3-4 days. They have her turned up to 4 L. Here however she is saturating 88% on room air. She had a chest x-ray done in the last day or 2 that was read as negative. 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 She has had recent admissions for urosepsis with multi drug resistant bacterial infections. In January she was treated successfully with ertapenem. She also has a history of DVT. No GI symptoms reported. No chest pain. Severity: Moderate Modifying factors: sats improved with oxygen. REVIEW OF SYSTEMS: Unable to obtain secondary to baseline mental status. EXAM: GENERAL: Overweight, frail, confused HEAD: Atraumatic, normocephalic. EYES: Pupils equal round and reactive to light, extraocular movements intact, sclera anicteric, conjunctiva are normal. ENT: TMs normal, nares patent, oropharynx clear without exudates. Moist mucous membranes. NECK: Normal range of motion, supple without lymphadenopathy or JVD. LUNGS: Mild wheezes bilaterally HEART: Regular rate and rhythm without murmurs, rubs or gallops. ABDOMEN: Soft, nontender, normoactive bowel sounds. No guarding, no rebound. No masses appreciated. Suprapubic catheter in place right lower quadrant clear urine BACK: No CVA tenderness, no spinal tenderness, step-offs or deformities EXTREMITIES: Normal range of motion, no pitting or edema. No clubbing or cyanosis. NEUROLOGICAL: Cranial nerves II through XII grossly intact. Normal speech, normal gait. 5/5 strength, normal movement in all extremities, normal sensation , normal reflexes PSYCH: Unable to assess SKIN: Decubitus ulcer left gluteus stage III, well dressed. Some beefy red erythema to her perineum as well. Source: Patient, EMS, [facility] records, Old records Exam Limitations: Clinical condition - Medical/Surgical History Hx Asthma: No Hx Chronic Respiratory Disease: Yes Hx Diabetes: No Hx Cardiac Disease: Yes Hx Renal Disease: Yes Hx Cirrhosis: No Hx Alcoholism: No Hx HIV/AIDS: No Hx Splenectomy or Spleen Trauma: No Other PMH: PMH: MS, DVT, C-diff (at some time), UTIs - indwelling catheter, neurogenic bladder, copd, metabolic encephalopathy - Family History Significant Family History: No pertinent family hx - Social History Smoking Status: Unknown if ever smoked Alcohol Use: Sober Drug Use: None Constitutional: Initial Vital Signs Temperature (C) 37.6 C 07/27/18 13:27 Heart Rate 69 07/27/18 13:27 Respiratory Rate 26 H 07/27/18 13:27 Blood Pressure 137/69 H 07/27/18 13:27 O2 Sat (%) 90 L 07/27/18 13:27 O2 Delivery Mode Nasal Cannula O2 (L/minute) 3 Allergies/Adverse Reactions: clindamycin [Clindamycin] Allergy (Severe, Verified 01/12/18 20:10) Abdominal Pain Sulfa (Sulfonamide Antibiotics) Allergy (Severe, Verified 01/12/18 20:10) Unknown Home Medications: Medication Instructions Recorded Polyethylene Glycol 3350 [Miralax 17 g PO BID 09/20/12 17 gm (*)] Cholecalciferol Vit D3 [Vitamin D3 50,000 unit PO Q30D 05/16/16 (*)] Furosemide [Lasix 20 MG (*)] 40 mg PO DAILY 05/16/16 Glatiramer Acetate [Copaxone] 20 mg SQ DAILY 07/15/17 Ondansetron Odt [Zofran Odt 4 mg 4 mg PO TID PRN 07/16/17 (*)] DULoxetine [Cymbalta 30 MG (*)] 30 mg PO DAILY 01/13/18 Gabapentin [Neurontin Oral Liquid] 1,200 mg PO BID 01/13/18 Gabapentin [Neurontin Oral Liquid] 800 mg PO DAILY@12 01/13/18 Ibuprofen [Motrin (*)] 600 mg PO TID PRN 01/13/18 Nystatin Powder [Mycostatin Powder] 1 julien TP TID PRN 01/13/18 Phenazopyridine HCl [Pyridium] 100 mg PO TID PRN 01/13/18 Potassium Cl [Klor-Con 20 meq (*)] 20 meq PO DAILY 01/13/18 Sennosides/Docusate Sodium 1 each PO BID 01/13/18 [Senna-S Tablet] Sodium Cl Nasal [[place] (*)] 1 spray NS QID PRN 01/13/18 fentaNYL [Duragesic 50 MCG Patch 50 mcg TD Q72H 01/13/18 (*)] oxyCODONE IR [Oxycodone Ir (*)] 5 mg PO BID PRN 01/13/18 oxyCODONE IR [Oxycodone Ir (*)] 7.5 mg PO TID 01/13/18 morphINE SR [Ms Contin/Oramorph 15 15 mg PO BID #60 tab 01/15/18 mg (*)] Acetaminophen [Tylenol 325mg (*)] 650 mg PO Q4 PRN 07/27/18 Albuterol [Proventil Neb] 3 ml IH Q2 PRN 07/27/18 Baclofen [Baclofen 10 mg (*)] 10 mg PO Q6 PRN 07/27/18 Bisacodyl [Dulcolax] 10 mg RC HS PRN 07/27/18 Bisacodyl [Dulcolax] 10 mg RC Q3D@21 07/27/18 Calcium Carbonate [Tums 500MG (*)] 1,250 mg PO QID PRN 07/27/18 Collagenase [Santyl (*)] 1 julien TP DAILY 07/27/18 Dextran 70/Hypromellose 1 drop EACHEYE Q4 PRN 07/27/18 [Artificial Tears Eye Drops] Ipratropium/Albuterol [Duoneb (*)] 3 ml IH Q4 PRN 07/27/18 Magnesium Hydroxide [Milk of 30 ml PO DAILY PRN 07/27/18 Magnesia] Polyethylene Glycol 3350 [Miralax 17 gm PO DAILY 07/27/18 17 gm (*)] Sodium Cl Nasal [[place] (*)] 1 spray NS BID 07/27/18 guaiFENesin/DEXTROMETHORPHAN 10 ml PO Q6 PRN 07/27/18 [Robitussin Dm Oral Liquid (*)] Medical Decision Making - Diagnostics Imaging Results: Imaging Impressions Chest X-Ray 07/27/18 13:29 Impression: 1. Hypoventilatory chest with slight increase in interstitial prominence, could be related to airways disease superimposed on underlying emphysema. 2. Cardiomegaly without bud failure. 3. Additional findings as above. Imaging: Discussed imaging studies w/ on call pharmacy technician Radiologist ED Course/Re-evaluation: 2:50 p.m. I discussed the case with Dr. Daugherty who will admit for sepsis and urinary tract infection. She does not meet criteria for severe sepsis. Dr. Daugherty is ordering antibiotics. Differential Diagnosis: Partial list of the Differential diagnosis considered include but were not limited to; pneumonia, urinary tract infection, sepsis, COPD exacerbation and although unlikely based on the history and physical exam, I also considered wound infection, cellulitis meningitis. Critical Care Time: Critical care time spent by me, Dr. Maldonado exclusive with this patient was 35 minutes, exclusive of the PA time exclusive of procedures. The organ system that was at risk was cardiovascular and I gave fluids, diagnostics, consultation and admission to prevent worsening of the patient's condition - Data Points Laboratory Results: Laboratory Results 07/27/18 13:49 07/27/18 13:49 07/27/18 07/27/18 07/27/18 14:20 13:49 13:49 WBC RBC Hgb Hct MCV MCH MCHC RDW Plt Count MPV Neut % (Auto) Lymph % (Auto) [place] % (Auto) Eos % (Auto) Baso % (Auto) Nucleat RBC Rel Count Absolute Neuts (auto) Absolute Lymphs (auto) Absolute Monos (auto) Absolute Eos (auto) Absolute Basos (auto) Absolute Nucleated RBC Immature Gran % Immature Gran # PT 12.7 SEC SEC (12.0-15.0) INR 0.93 (0.83-1.16) APTT 29.7 SEC SEC (23.0-38.0) VBG Lactic Acid Sodium 138 mEq/L mEq/L (135-145) Potassium 3.6 mEq/L mEq/L (3.3-5.0) Chloride 94 mEq/L L mEq/L (97-110) Carbon Dioxide 36 mEq/l H mEq/l (22-31) Anion Gap 8 mEq/L mEq/L (6-14) BUN 14 mg/dL mg/dL (7-23) Creatinine 0.7 mg/dL mg/dL (0.6-1.0) Estimated GFR > 60 Glucose 94 mg/dL mg/dL (70-100) Calcium 10.0 mg/dL mg/dL (8.5-10.4) Total Bilirubin 0.6 mg/dL mg/dL (0.1-1.4) Urine Color YELLOW Urine Appearance MODERATELY TURBID Urine pH 7.0 (5.0-7.5) Ur Specific [place] 1.008 (1.002-1.030) Urine Protein NEGATIVE (NEGATIVE) Urine Ketones NEGATIVE (NEGATIVE) Urine Blood 2+ H (NEGATIVE) Urine Nitrate POSITIVE H (NEGATIVE) Urine Bilirubin NEGATIVE (NEGATIVE) Urine Urobilinogen NEGATIVE EU EU (0.2-1.0) Ur Leukocyte Esterase 3+ H (NEGATIVE) Urine RBC 3-5 /hpf H /hpf (0-3) Urine WBC 25-50 /hpf H /hpf (0-3) Ur Epithelial Cells TRACE /lpf /lpf (NONE-1+) Calcium Oxalate Crystal PRESENT /hpf /hpf (NONE-1+) Amorphous Sediment PRESENT /hpf /hpf (NONE-1+) Urine Bacteria 2+ /hpf H /hpf (NONE SEEN) Urine Mucus TRACE /lpf /lpf (NONE-1+) Ur Culture Indicated? Cancelled Urine Glucose NEGATIVE (NEGATIVE) 07/27/18 07/27/18 13:49 13:49 WBC 12.23 10^3/uL H 10^3/uL (3.80-9.50) RBC 4.00 10^6/uL L 10^6/uL (4.18-5.33) Hgb 13.1 g/dL g/dL (12.6-16.3) Hct 38.7 % % (38.0-47.0) MCV 96.8 fL fL (81.5-99.8) MCH 32.8 pg pg (27.9-34.1) MCHC 33.9 g/dL g/dL (32.4-36.7) RDW 13.1 % % (11.5-15.2) Plt Count 246 10^3/uL 10^3/uL (150-400) MPV 9.1 fL fL (8.7-11.7) Neut % (Auto) 76.5 % H % (39.3-74.2) Lymph % (Auto) 14.2 % L % (15.0-45.0) [place] % (Auto) 5.2 % % (4.5-13.0) Eos % (Auto) 3.5 % % (0.6-7.6) Baso % (Auto) 0.4 % % (0.3-1.7) Nucleat RBC Rel Count 0.0 % % (0.0-0.2) Absolute Neuts (auto) 9.34 10^3/uL H 10^3/uL (1.70-6.50) Absolute Lymphs (auto) 1.74 10^3/uL 10^3/uL (1.00-3.00) Absolute Monos (auto) 0.64 10^3/uL 10^3/uL (0.30-0.80) Absolute Eos (auto) 0.43 10^3/uL H 10^3/uL (0.03-0.40) Absolute Basos (auto) 0.05 10^3/uL 10^3/uL (0.02-0.10) Absolute Nucleated RBC 0.00 10^3/uL 10^3/uL (0-0.01) Immature Gran % 0.2 % % (0.0-1.1) Immature Gran # 0.03 10^3/uL 10^3/uL (0.00-0.10) PT INR APTT VBG Lactic Acid 2.0 mmol/L mmol/L (0.7-2.1) Sodium Potassium Chloride Carbon Dioxide Anion Gap BUN Creatinine Estimated GFR Glucose Calcium Total Bilirubin Urine Color Urine Appearance Urine pH Ur Specific [place] Urine Protein Urine Ketones Urine Blood Urine Nitrate Urine Bilirubin Urine Urobilinogen Ur Leukocyte Esterase Urine RBC Urine WBC Ur Epithelial Cells Calcium Oxalate Crystal Amorphous Sediment Urine Bacteria Urine Mucus Ur Culture Indicated? Urine Glucose Microbiology Results: MICROBIOLOGY 07/27/18 14:20 Nasal, Sinus - Swab Respiratory Panel (PCR) - Final No Organism Detected Medications Given: Ertapenem 1 gm/ Sodium (Chloride) 100 mls @ 200 mls/hr IV DAILY RIGOBERTO PRN Reason: Protocol Stop: 08/26/18 14:59 Last Admin: 07/27/18 16:46 Dose: 100 mls Discontinued Medications Hydromorphone HCl (Dilaudid) 0.2 mg IVP ONCE ONE Stop: 07/27/18 16:46 Last Admin: 07/27/18 16:46 Dose: 0.2 mg Sodium Chloride (Ns) 1,000 mls @ 0 mls/hr IV EDNOW ONE; Wide Open PRN Reason: Protocol Stop: 07/27/18 14:55 Last Admin: 07/27/18 15:11 Dose: 1,000 mls Departure - Departure Disposition: Home, Routine, Self-Care Clinical Impression: Urinary tract infection Qualifiers: Urinary tract infection type: acute cystitis Hematuria presence: without hematuria Qualified Code(s): N30.00 - Acute cystitis without hematuria Sepsis Qualifiers: Sepsis type: sepsis due to unspecified organism Qualified Code(s): A41.9 - Sepsis, unspecified organism Condition: Fair
[2018-07-27 14:04] LABS: PLATELET COUNT 246 10^3/uL (150-400)
[2018-07-27 14:16] LABS: INR 0.93 (0.83-1.16); PROTIME(PATIENT) 12.7 SEC (12.0-15.0)
[2018-07-27] MEDS ORDERED: NS 1,000 ML IV ONE (14:54)
[2018-07-27] MEDS ORDERED: ERTAPENEM 1 GM in NS 100 ML IV SCH (15:00)
[2018-07-27] MEDS ORDERED: ONDANSETRON 4 MG/2 ML VIAL IVP PRN (15:38)
[2018-07-27] MEDS ORDERED: ONDANSETRON DISINTEGRATING 4 MG TAB PO PRN (15:38)
[2018-07-27] MEDS ORDERED: NS 1,000 ML IV SCH (15:45)
--- NOTE | 2018-07-27 15:51 | PDGENHP ---
History and Physical - Chief Complaint increased O2 requirment, lethargy, fever - History of Present Illness 78 yo female with h/o MS, COPD on 2 LPM at baseline, neurogenic bladder with chronic SPC and recurrent CAUTI's with ESBL E coli presents to ED from [facility] with increased lethargy, subjective fevers and reported increased O2 requirement. Upon arrival to ED, she was 88% on room air and she is currently on her baseline O2 requirement of 2 LPM. She is a poor historian, but is able to tell me she has had fever to 102. She also states she has "a hole in her butt". She denies abdominal pain, N/V or diarrhea. She denies upper respiratory symptoms. She has a SPC for neurogenic bladder in the setting of advanced MS. In the ED, UA revealed pyuria and suspicion for CAUTI. Blood cultures are drawn and she is admitted for further management. History Information - Allergies/Home Medication List Allergies/Adverse Reactions: clindamycin [Clindamycin] Allergy (Severe, Verified 01/12/18 20:10) Abdominal Pain Sulfa (Sulfonamide Antibiotics) Allergy (Severe, Verified 01/12/18 20:10) Unknown Home Medications: Polyethylene Glycol 3350 [Miralax 17 gm (*)] 17 g PO BID 09/20/12 [Last Taken ] Cholecalciferol Vit D3 [Vitamin D3 (*)] 50,000 unit PO Q30D 05/16/16 [Last Taken 07/10/17] Furosemide [Lasix 20 MG (*)] 40 mg PO DAILY 05/16/16 [Last Taken 07/15/17] Glatiramer Acetate [Copaxone] 20 mg SQ DAILY 07/15/17 [Last Taken 07/15/17] Ondansetron Odt [Zofran Odt 4 mg (*)] 4 mg PO TID PRN 07/16/17 [Last Taken 07/05] DULoxetine [Cymbalta 30 MG (*)] 30 mg PO DAILY 01/13/18 [Last Taken Unknown] Gabapentin [Neurontin Oral Liquid] 1,200 mg PO BID 01/13/18 [Last Taken Unknown] Gabapentin [Neurontin Oral Liquid] 800 mg PO DAILY@12 01/13/18 [Last Taken Unknown] Ibuprofen [Motrin (*)] 600 mg PO TID PRN 01/13/18 [Last Taken Unknown] Nystatin Powder [Mycostatin Powder] 1 julien TP TID PRN 01/13/18 [Last Taken Unknown] Phenazopyridine HCl [Pyridium] 100 mg PO TID PRN 01/13/18 [Last Taken Unknown] Potassium Cl [Klor-Con 20 meq (*)] 20 meq PO DAILY 01/13/18 [Last Taken Unknown] Sennosides/Docusate Sodium [Senna-S Tablet] 1 each PO BID 01/13/18 [Last Taken Unknown] Sodium Cl Nasal [[place] (*)] 1 spray NS QID PRN 01/13/18 [Last Taken Unknown] fentaNYL [Duragesic 50 MCG Patch (*)] 50 mcg TD Q72H 01/13/18 [Last Taken Unknown] oxyCODONE IR [Oxycodone Ir (*)] 5 mg PO BID PRN 01/13/18 [Last Taken Unknown] oxyCODONE IR [Oxycodone Ir (*)] 7.5 mg PO TID 01/13/18 [Last Taken Unknown] Acetaminophen [Tylenol 325mg (*)] 650 mg PO Q4 PRN 07/27/18 [Last Taken Unknown] Albuterol [Proventil Neb] 3 ml IH Q2 PRN 07/27/18 [Last Taken Unknown] Baclofen [Baclofen 10 mg (*)] 10 mg PO Q6 PRN 07/27/18 [Last Taken Unknown] Bisacodyl [Dulcolax] 10 mg RC HS PRN 07/27/18 [Last Taken Unknown] Bisacodyl [Dulcolax] 10 mg RC Q3D@21 07/27/18 [Last Taken Unknown] Calcium Carbonate [Tums 500MG (*)] 1,250 mg PO QID PRN 07/27/18 [Last Taken Unknown] Collagenase [Santyl (*)] 1 julien TP DAILY 07/27/18 [Last Taken Unknown] Dextran 70/Hypromellose [Artificial Tears Eye Drops] 1 drop EACHEYE Q4 PRN 07/27 [Last Taken Unknown] Ipratropium/Albuterol [Duoneb (*)] 3 ml IH Q4 PRN 07/27/18 [Last Taken Unknown] Magnesium Hydroxide [Milk of Magnesia] 30 ml PO DAILY PRN 07/27/18 [Last Taken Unknown] Polyethylene Glycol 3350 [Miralax 17 gm (*)] 17 gm PO DAILY 07/27/18 [Last Taken Unknown] Sodium Cl Nasal [[place] (*)] 1 spray NS BID 07/27/18 [Last Taken Unknown] guaiFENesin/DEXTROMETHORPHAN [Robitussin Dm Oral Liquid (*)] 10 ml PO Q6 PRN [Last Taken Unknown] I have personally reviewed and updated: family history, medical history, social history, surgical history - Past Medical History DVT Additional medical history: MS. Chronic SPC 2/2 neurogenic bladder. COPD 2 LPM O2 at baseline. Chronic pain with opioid dependence. Neuropathy. Chronic left buttock pressure injury. H/O C diff. Chronic encephalopathy - Surgical History Additional surgical history: SPC - Family History Positive for: cancer - Social History Smoking Status: Unknown if ever smoked Alcohol Use: Sober Drug Use: None Additional social history: Lives at [facility] Review of Systems Review of Systems: ROS: 10pt was reviewed & negative except for what was stated in HPI & below Physical Exam Physical Exam: Temp Pulse Resp BP Pulse Ox 37.4 C 74 16 129/68 H 98 07/27/18 15:38 07/27/18 15:38 07/27/18 15:38 07/27/18 15:38 07/27/18 15:38 O2 (L/minute) 2 Constitutional: no apparent distress Eyes: PERRL Ears, Nose, Mouth, Throat: moist mucous membranes Cardiovascular: regular rate and rhythym Respiratory: no respiratory distress, clear to auscultation Gastrointestinal: normoactive bowel sounds, soft, non-tender abdomen, other (+ anterior abdominal hernia which is soft, non-tender and reducible) Skin: warm, other (left buttock with ~2cm pressure injury, no purulence or surrounding erythema) Musculoskeletal: generalized weakness Psychiatric: encephalopathic Lab Data & Imaging Review 07/27/18 13:49 07/27/18 13:49 WBC 12.23 10^3/uL (3.80-9.50) H 07/27/18 13:49 RBC 4.00 10^6/uL (4.18-5.33) L 07/27/18 13:49 Hgb 13.1 g/dL (12.6-16.3) 07/27/18 13:49 Hct 38.7 % (38.0-47.0) 07/27/18 13:49 MCV 96.8 fL (81.5-99.8) 07/27/18 13:49 MCH 32.8 pg (27.9-34.1) 07/27/18 13:49 MCHC 33.9 g/dL (32.4-36.7) 07/27/18 13:49 RDW 13.1 % (11.5-15.2) 07/27/18 13:49 Plt Count 246 10^3/uL (150-400) 07/27/18 13:49 MPV 9.1 fL (8.7-11.7) 07/27/18 13:49 Neut % (Auto) 76.5 % (39.3-74.2) H 07/27/18 13:49 Lymph % (Auto) 14.2 % (15.0-45.0) L 07/27/18 13:49 [place] % (Auto) 5.2 % (4.5-13.0) 07/27/18 13:49 Eos % (Auto) 3.5 % (0.6-7.6) 07/27/18 13:49 Baso % (Auto) 0.4 % (0.3-1.7) 07/27/18 13:49 Nucleat RBC Rel Count 0.0 % (0.0-0.2) 07/27/18 13:49 Absolute Neuts (auto) 9.34 10^3/uL (1.70-6.50) H 07/27/18 13:49 Absolute Lymphs (auto) 1.74 10^3/uL (1.00-3.00) 07/27/18 13:49 Absolute Monos (auto) 0.64 10^3/uL (0.30-0.80) 07/27/18 13:49 Absolute Eos (auto) 0.43 10^3/uL (0.03-0.40) H 07/27/18 13:49 Absolute Basos (auto) 0.05 10^3/uL (0.02-0.10) 07/27/18 13:49 Absolute Nucleated RBC 0.00 10^3/uL (0-0.01) 07/27/18 13:49 Immature Gran % 0.2 % (0.0-1.1) 07/27/18 13:49 Immature Gran # 0.03 10^3/uL (0.00-0.10) 07/27/18 13:49 PT 12.7 SEC (12.0-15.0) 07/27/18 13:49 INR 0.93 (0.83-1.16) 07/27/18 13:49 APTT 29.7 SEC (23.0-38.0) 07/27/18 13:49 VBG Lactic Acid 2.0 mmol/L (0.7-2.1) 07/27/18 13:49 Sodium 138 mEq/L (135-145) 07/27/18 13:49 Potassium 3.6 mEq/L (3.3-5.0) 07/27/18 13:49 Chloride 94 mEq/L (97-110) L 07/27/18 13:49 Carbon Dioxide 36 mEq/l (22-31) H 07/27/18 13:49 Anion Gap 8 mEq/L (6-14) 07/27/18 13:49 BUN 14 mg/dL (7-23) 07/27/18 13:49 Creatinine 0.7 mg/dL (0.6-1.0) 07/27/18 13:49 Estimated GFR > 60 07/27/18 13:49 Glucose 94 mg/dL (70-100) 07/27/18 13:49 Calcium 10.0 mg/dL (8.5-10.4) 07/27/18 13:49 Total Bilirubin 0.6 mg/dL (0.1-1.4) 07/27/18 13:49 Urine Color YELLOW 07/27/18 14:20 Urine Appearance MODERATELY TURBID 07/27/18 14:20 Urine pH 7.0 (5.0-7.5) 07/27/18 14:20 Ur Specific [place] 1.008 (1.002-1.030) 07/27/18 14:20 Urine Protein NEGATIVE (NEGATIVE) 07/27/18 14:20 Urine Ketones NEGATIVE (NEGATIVE) 07/27/18 14:20 Urine Blood 2+ (NEGATIVE) H 07/27/18 14:20 Urine Nitrate POSITIVE (NEGATIVE) H 07/27/18 14:20 Urine Bilirubin NEGATIVE (NEGATIVE) 07/27/18 14:20 Urine Urobilinogen NEGATIVE EU (0.2-1.0) 07/27/18 14:20 Ur Leukocyte Esterase 3+ (NEGATIVE) H 07/27/18 14:20 Urine RBC 3-5 /hpf (0-3) H 07/27/18 14:20 Urine WBC 25-50 /hpf (0-3) H 07/27/18 14:20 Ur Epithelial Cells TRACE /lpf (NONE-1+) 07/27/18 14:20 Calcium Oxalate Crystal PRESENT /hpf (NONE-1+) 07/27/18 14:20 Amorphous Sediment PRESENT /hpf (NONE-1+) 07/27/18 14:20 Urine Bacteria 2+ /hpf (NONE SEEN) H 07/27/18 14:20 Urine Mucus TRACE /lpf (NONE-1+) 07/27/18 14:20 Ur Culture Indicated? Cancelled 07/27/18 14:20 Urine Glucose NEGATIVE (NEGATIVE) 07/27/18 14:20 Visualized and Interpreted Chest x-ray results: Yes Chest X-Ray results: other (poor inspiration, cardiomegaly, no acute process) Assessment & Plan Assessment: Sepsis 2/2 CAUTI - (RR, leukocytosis), chronic SPC with h/o ESBL E coli. Reported recent fever, but afebrile here, lactate normal. No hypotension. -UCx and BCx's pending -IV Ertapenem given h/o ESBL and SPC Left buttock pressure injury - this does not appear to be source of sepsis, but will send wound Cx -wound care MS with neurogenic bladder and peripheral neuropathy -cont gabapentin when med rec completed Chronic pain with continuous opioid dependence -cont home meds when med rec done Chronic encephalopathy DVT PPLX - high risk, Lovenox Dispo - inpt, anticipate >48 hrs hospitalization for management of sepsis and uti
[2018-07-27] MEDS ORDERED: TEARS/DEXTRAN 70/HYPROMELLOSE 15 ML OPHT.BTL EACHEYE PRN (16:41)
[2018-07-27] MEDS ORDERED: IPRATROPIUM/ALBUTEROL 3 ML DEYVIAL IH PRN (16:41)
[2018-07-27] MEDS ORDERED: SODIUM CL NASAL 45 ML BTL NS PRN (16:41)
[2018-07-27] MEDS ORDERED: NYSTATIN POWDER 15 GM BTL TP PRN (16:41)
[2018-07-27] MEDS ORDERED: ALBUTEROL 3 ML DEYVIAL IH PRN (16:41)
[2018-07-27] MEDS ORDERED: GUAIFENESIN/DM 10 ML UDCUP PO PRN (16:41)
[2018-07-27] MEDS ORDERED: HYDROmorphONE/DILAUDID 1 MG/ML INJ IVP ONE (16:45)
[2018-07-27] MEDS: HYDROmorphONE/DILAUDID 1 MG/ML INJ IVP PRN ×2 (17:29→23:26)
[2018-07-27] MEDS: GABAPENTIN 250 MG/5 ML 30 ML BOTTLE PO SCH (22:08)
[2018-07-27] MEDS: morphINE SR 15 MG TAB PO SCH ×2 (22:08→22:49)
[2018-07-27] MEDS: VANCOMYCIN 125 MG/2.5 ML UDL PO SCH (22:08)
[2018-07-27] MEDS: SODIUM CL NASAL 45 ML BTL NS SCH (22:17)
[2018-07-27] MEDS: oxyCODONE IR 5 MG TAB PO SCH (22:49)
[2018-07-28] MEDS ORDERED: HYDROmorphONE/DILAUDID 1 MG/ML INJ IVP ONE (02:22)
[2018-07-28] MEDS: HYDROmorphONE/DILAUDID 1 MG/ML INJ IVP PRN ×4 (04:29→18:14)
[2018-07-28] MEDS: VANCOMYCIN 125 MG/2.5 ML UDL PO SCH ×4 (05:10→22:59)
[2018-07-28 05:52] LABS: PLATELET COUNT 214 10^3/uL (150-400)
[2018-07-28] MEDS: DULoxetine 30 MG CAP PO SCH (09:23)
[2018-07-28] MEDS: morphINE SR 15 MG TAB PO SCH ×2 (09:23→23:42)
[2018-07-28] MEDS: POTASSIUM CL 20 MEQ TAB PO SCH (09:23)
[2018-07-28] MEDS: oxyCODONE IR 5 MG TAB PO SCH ×3 (09:24→22:57)
[2018-07-28] MEDS: fentaNYL 50 MCG PATCH TD SCH (09:26)
[2018-07-28] MEDS: GABAPENTIN 250 MG/5 ML 30 ML BOTTLE PO SCH ×4 (09:40→23:37)
--- NOTE | 2018-07-28 10:53 | PDMN ---
Medical Necessity Medical necessity: Pt meets IP criteria per MD & MCG M-170 (Gastroenteritis); est los >2 mn for eval/tx of C diff w/frequent diarrhea in the setting of open buttock pressure ulcer, lethargy & increased O2 requirement; requiring further monitoring, rectal tube, Wound Care consult, IVFs & therapies; hx MS, COPD, neurogenic bladder w/chronic suprapubic catheter & recurrent CAUTIs, chronic encephalopathy; per H&P & order 07/27/18
[2018-07-28] MEDS: COLLAGENASE 30 GM OINTMENT TP SCH (11:55)
--- NOTE | 2018-07-28 12:14 | ASMTCMCOM ---
CM Note CM Note Notes: Pt is a 78 y/o female admitted for increased o2 need, lethargy and fever. CM spoke to CHRISTINE Montiel at [facility] and confirmed that pt lives at [facility]. Staff helps pt w/ all ADLs. Pt is wheelchair bound. Tiana reports that pt has a stage 3 wound on her buttocks. CM communicated this w/ CHRISTINE Lopez. Updates sent on allscripts. Pt has 2 supportive daughters. Therapies have been ordered and awaiting recommendations. Needs are TBD at this time. CM to follow. Plan: TBD Date Signed: 07/28/2018 12:14 PM Electronically Signed By:BRITTNEE Simon
--- NOTE | 2018-07-28 12:47 | HOSPPROG ---
Hospitalist Progress Note Assessment/Plan: C diff colitis * Not able to consistently take vancomycin. * Will add Flagyl but keep vancomycin on board in case she is able to start swallowing * sepsis * Secondary to above * history of suprapubic catheter with previous history of ESBL E coli * Antibiotics stopped due to positive C diff * Will see how she responds to treatment for C diff before considering adding antibiotics * Urine most likely colonized Left buttock pressure injury - this does not appear to be source of sepsis, but will send wound Cx -wound care MS with neurogenic bladder and peripheral neuropathy -continue is much of the pain medicines as we can is she is not taking p.o. Very well * Continue IV Dilaudid Chronic pain with continuous opioid dependence * Fat no patch * . P.r.n. Dilaudid Chronic encephalopathy DVT PPLX - high risk, Lovenox * History of DVT in the past reported Dispo - inpt, anticipate >48 hrs hospitalization for management of sepsis and C diff Subjective: having headache and neuropathy pain. Also with nausea vomiting. Unable to keep down a lot of oral medications Objective: Vital Signs Temp Pulse Resp BP Pulse Ox 37.1 C 87 18 121/62 H 88 L 07/28/18 04:27 07/28/18 04:27 07/28/18 04:27 07/28/18 04:27 07/28/18 04:27 Microbiology 07/27/18 17:15 Gastrointestinal Tract Panel (PCR) - Final Stool Clostridium Difficile Detected 07/27/18 17:40 Gram Stain - Final Buttock - Swab Laboratory Results 07/28/18 05:17 07/28/18 05:17 07/27/18 07/28/18 07/29/18 05:59 05:59 05:59 Intake Total 50 Output Total 1400 Balance -1350 PT 12.7 SEC (12.0-15.0) 07/27/18 13:49 INR 0.93 (0.83-1.16) 07/27/18 13:49 - Physical Exam Constitutional: no apparent distress, chronically ill appearing Eyes: anicteric sclera, EOMI Ears, Nose, Mouth, Throat: moist mucous membranes Cardiovascular: regular rate and rhythym Respiratory: no respiratory distress, no rales or rhonchi Gastrointestinal: normoactive bowel sounds, soft, non-tender abdomen, no palpable masses, other (Rectal tube with soft stool around) Skin: warm Neurologic: other (Slow to respond to questions) Psychiatric: interacting appropriately, not anxious, not encephalopathic, flat affect ICD10 Worksheet Patient Problems: Problems Problem Status Onset Sepsis Acute Urinary tract infection Acute Infection due to resistant organism Active Acute confusion Acute Acute lower urinary tract infection Acute Bilateral tibial fractures Acute ESBL (extended spectrum beta-lactamase) producing bacteria infection Acute 04/18 Fecal impaction Acute Fever Acute Pneumonia Acute
[2018-07-28] MEDS: ENOXAPARIN 40 MG/0.4 ML SYR SC SCH (12:55)
[2018-07-28] MEDS: D5W 1/2 NS W/ 20 KCl/L 1,000 ML IV SCH (13:39)
[2018-07-28] MEDS: SODIUM CL NASAL 45 ML BTL NS SCH ×2 (13:39→23:10)
[2018-07-28] MEDS: POTASSIUM Cl (KCl) 100 ML IV SCH ×2 (14:41→14:43)
[2018-07-28] MEDS ORDERED: POTASSIUM CL 20 MEQ/15 ML UDCUP PO ONE (21:30)
[2018-07-29] MEDS: oxyCODONE IR 5 MG TAB PO PRN (04:55)
[2018-07-29] MEDS: VANCOMYCIN 125 MG/2.5 ML UDL PO SCH ×3 (04:56→15:43)
[2018-07-29 05:06] LABS: PLATELET COUNT 185 10^3/uL (150-400)
[2018-07-29] MEDS: D5W 1/2 NS W/ 20 KCl/L 1,000 ML IV SCH (07:43)
[2018-07-29] MEDS: oxyCODONE IR 5 MG TAB PO SCH ×3 (09:17→21:15)
[2018-07-29] MEDS: GABAPENTIN 250 MG/5 ML 30 ML BOTTLE PO SCH ×3 (09:19→21:33)
[2018-07-29] MEDS: morphINE SR 15 MG TAB PO SCH ×2 (09:19→21:15)
[2018-07-29] MEDS: DULoxetine 30 MG CAP PO SCH (09:19)
[2018-07-29] MEDS: ENOXAPARIN 40 MG/0.4 ML SYR SC SCH (09:19)
[2018-07-29] MEDS: POTASSIUM CL 20 MEQ TAB PO SCH (09:19)
[2018-07-29] MEDS: SODIUM CL NASAL 45 ML BTL NS SCH ×2 (09:38→21:17)
[2018-07-29] MEDS: COLLAGENASE 30 GM OINTMENT TP SCH (10:40)
[2018-07-29] MEDS ORDERED: HYDROmorphONE/DILAUDID 1 MG/ML INJ IVP ONE (11:37)
[2018-07-29] MEDS ORDERED: LORazepam 0.5 MG TAB PO PRN (11:38)
--- NOTE | 2018-07-29 13:43 | PDCONSULT ---
Trailer Sections Assembler Note: Surgical Consult requested by Dr. Gallo Blank 78 y/o female with long standing Multiple Sclerosis confined to a wheelchair for the past 30 years admitted 2 days ago for UTI/possible C diff. She developed an "ulcer on her buttocks" several months ago and this has been treated at the [facility] with topical Santyl and occlusive dressings. A random wound culture of the ulcer was performed on admission. PE: pleasant frail elderly female in NAD incontinent of stool Left ischial tuberosity decubitus ulcer 2.5 x 2.5 cm x 1.5 cm stage III with no exposed bone superficial slough debrided and ulcer redressed with Santyl ointment Imp: Left ischial tuberosity decubitus ulcer, stage III, chronic with no clinical sign of infection current wound care with Santyl ointment/occlusive dressing BID wound care consult pending she may benefit from a wound vac and may ultimately require a rotational flap for coverage I would not reculture this wound and I would not treat the prior culture results with antibiotics as this is not an infected wound S MD Gypsy, FACS
--- NOTE | 2018-07-29 13:57 | HOSPPROG ---
Hospitalist Progress Note Assessment/Plan: C diff colitis * Unclear if patient had diarrhea prior to admission, per daughter was on a bowel regimen and has hx of constipation * C Diff PCR positive yesterday, per daughter has hx of C Diff 10 years ago * Likely colonization in setting of laxatives, hx of C Diff * Consulted ID for further recommendations * Continue Flagyl for now, likely d/c pending ID consult * history of suprapubic catheter with previous history of ESBL E coli * Antibiotics stopped due to positive C diff, was initially placed on Ertapenum * Also likely colonization in setting of chronic catheter * ID consult as above Stage 3 Pressure ulcer -Wound cx sent growing Proteus, gram neg allyson - Surgery consulted this AM for possible intervention, they recommend wound care, may require surgical flap in the future - Continue wound care MS with neurogenic bladder and peripheral neuropathy - Continue home regimen Chronic pain with continuous opioid dependence * Continue home pain medications * P.r.n. Dilaudid Chronic encephalopathy - Per daughter back to baseline this morning DVT PPLX - high risk, Lovenox * History of DVT in the past reported Dispo - inpt, anticipate >48 hrs hospitalization for management of sepsis and C diff Subjective: Patient reports pain 2/2 ulcer on buttocks Objective: Vital Signs Temp Pulse Resp BP Pulse Ox 36.5 C 83 14 118/69 95 07/29/18 11:32 07/29/18 11:32 07/29/18 11:32 07/29/18 11:32 07/29/18 11:32 Microbiology 07/27/18 17:40 Gram Stain - Final Buttock - Swab Laboratory Results 07/29/18 04:19 07/29/18 04:19 07/28/18 07/29/18 07/30/18 05:59 05:59 05:59 Intake Total 50 1057 Output Total 1400 900 Balance -1350 157 PT 12.7 SEC (12.0-15.0) 07/27/18 13:49 INR 0.93 (0.83-1.16) 07/27/18 13:49 - Physical Exam Constitutional: chronically ill appearing Eyes: PERRL Ears, Nose, Mouth, Throat: dry mucous membranes Cardiovascular: regular rate and rhythym Respiratory: no respiratory distress Gastrointestinal: soft, non-tender abdomen Genitourinary: no bladder tenderness Skin: normal color, pressure ulcer (on buttocks, stage 3 ) Musculoskeletal: generalized weakness Neurologic: No AAOx3 Psychiatric: not encephalopathic, No interacting appropriately ICD10 Worksheet Patient Problems: Problems Problem Status Onset Sepsis Acute Urinary tract infection Acute Infection due to resistant organism Active Acute confusion Acute Acute lower urinary tract infection Acute Bilateral tibial fractures Acute ESBL (extended spectrum beta-lactamase) producing bacteria infection Acute 04/18 Fecal impaction Acute Fever Acute Pneumonia Acute
[2018-07-30] MEDS: HYDROmorphONE/DILAUDID 1 MG/ML INJ IVP PRN (05:17)
[2018-07-30] MEDS: COLLAGENASE 30 GM OINTMENT TP SCH (10:23)
[2018-07-30] MEDS: oxyCODONE IR 5 MG TAB PO SCH ×3 (10:24→23:11)
[2018-07-30] MEDS: POTASSIUM CL 20 MEQ TAB PO SCH (10:24)
[2018-07-30] MEDS: morphINE SR 15 MG TAB PO SCH ×2 (10:25→20:26)
[2018-07-30] MEDS: DULoxetine 30 MG CAP PO SCH (10:25)
[2018-07-30] MEDS: ENOXAPARIN 40 MG/0.4 ML SYR SC SCH (10:25)
--- NOTE | 2018-07-30 10:27 | HOSPPROG ---
Hospitalist Progress Note Assessment/Plan: C diff colitis * Unclear if patient had diarrhea prior to admission, per daughter was on a bowel regimen and has hx of constipation * C Diff PCR positive yesterday, per daughter has hx of C Diff 10 years ago * Initially thought likely colonization in setting of laxatives, however after d /c Flagy yesterday patient had multiple loose BMs overnight * Will restart PO Vancomycin today * history of suprapubic catheter with previous history of ESBL E coli * Antibiotics stopped due to positive C diff, was initially placed on Ertapenum * Likely colonization in setting of chronic catheter * Discussed with ID yesterday who recommended not treating due to likely colonization Stage 3 Pressure ulcer -Wound cx sent growing Proteus, gram neg allyson - Surgery consulted yesterday, they recommend wound care, possible wound vac placement, may require surgical flap in the future - Continue wound care MS with neurogenic bladder and peripheral neuropathy - Continue home regimen Chronic pain with continuous opioid dependence * Continue home pain medications * P.r.n. Dilaudid Chronic encephalopathy - Per daughter back to baseline DVT PPLX - high risk, Lovenox * History of DVT in the past reported Dispo - inpt, anticipate >48 hrs hospitalization for management of sepsis and C diff Subjective: Patient reports loose BMs overnight Objective: Vital Signs Temp Pulse Resp BP Pulse Ox 36.9 C 61 16 100/56 L 99 07/30/18 08:38 07/30/18 08:38 07/30/18 08:38 07/30/18 08:38 07/30/18 08:38 Microbiology 07/27/18 17:40 Gram Stain - Final Buttock - Swab Laboratory Results 07/30/18 04:48 07/29/18 04:19 07/29/18 07/30/18 07/31/18 05:59 05:59 05:59 Intake Total 1057 975 Output Total 900 700 Balance 157 275 PT 12.7 SEC (12.0-15.0) 07/27/18 13:49 INR 0.93 (0.83-1.16) 07/27/18 13:49 - Physical Exam Constitutional: chronically ill appearing, uncomfortable Eyes: PERRL Ears, Nose, Mouth, Throat: dry mucous membranes Cardiovascular: regular rate and rhythym Respiratory: no respiratory distress Gastrointestinal: soft, non-tender abdomen, No guarding, No rebound Genitourinary: no bladder tenderness Skin: normal color Musculoskeletal: generalized weakness Neurologic: weakness, No AAOx3 Psychiatric: No interacting appropriately ICD10 Worksheet Patient Problems: Problems Problem Status Onset Sepsis Acute Urinary tract infection Acute Infection due to resistant organism Active Acute confusion Acute Acute lower urinary tract infection Acute Bilateral tibial fractures Acute ESBL (extended spectrum beta-lactamase) producing bacteria infection Acute 04/18 Fecal impaction Acute Fever Acute Pneumonia Acute
[2018-07-30] MEDS: GABAPENTIN 250 MG/5 ML 30 ML BOTTLE PO SCH ×3 (10:36→20:29)
[2018-07-30] MEDS: SODIUM CL NASAL 45 ML BTL NS SCH ×2 (10:40→20:36)
[2018-07-30] MEDS: VANCOMYCIN 125 MG/2.5 ML UDL PO SCH ×3 (12:00→20:26)
[2018-07-30] MEDS ORDERED: PNEUMOC 13-VAL CONJ-DIP CRM/PF 0.5 ML SYR IM ONE (12:20)
[2018-07-30] MEDS: D5W 1/2 NS W/ 20 KCl/L 1,000 ML IV SCH (14:30)
[2018-07-31 04:37] LABS: PLATELET COUNT 179 10^3/uL (150-400)
[2018-07-31] MEDS: VANCOMYCIN 125 MG/2.5 ML UDL PO SCH ×4 (05:14→20:05)
[2018-07-31] MEDS: oxyCODONE IR 5 MG TAB PO PRN (07:08)
[2018-07-31] MEDS: HYDROmorphONE/DILAUDID 1 MG/ML INJ IVP PRN (07:29)
[2018-07-31] MEDS: ENOXAPARIN 40 MG/0.4 ML SYR SC SCH (09:30)
[2018-07-31] MEDS: fentaNYL 50 MCG PATCH TD SCH (09:30)
[2018-07-31] MEDS: POTASSIUM CL 20 MEQ TAB PO SCH (09:31)
[2018-07-31] MEDS: oxyCODONE IR 5 MG TAB PO SCH ×3 (09:32→21:41)
[2018-07-31] MEDS: DULoxetine 30 MG CAP PO SCH (09:32)
[2018-07-31] MEDS: morphINE SR 15 MG TAB PO SCH ×2 (09:32→20:05)
[2018-07-31] MEDS: COLLAGENASE 30 GM OINTMENT TP SCH (09:33)
--- NOTE | 2018-07-31 11:08 | WOCRNPDOC ---
WOCRN Advanced Assessment Note - Skin Integrity Problem, Advanced Assess Left Ischial Tuberosity Pressure Injury Dressing Type: [place]ingo Dressing Description: Intact, Soiled (stool) Exudate Amount: None Integumentary Issue Intervention: Dressing Removed Miley Wound Tissue: Erythema, Painful/Tender Wound Bed Constitution: Granulation Tissue, Adhered Slough (thin layer ) Wound Edges: Not Attached, Epibole, Scarred Site Measurement - Head-to-Toe Length X Width X Depth (cm): 1.7x1.9x1.5 Pressure Injury Stage: Stage 3 Pressure Injury Present on Admit: Yes Skin Integrity Problem Comment: Long standing pressure injury. Does not tunnel however has approximately 0.5 cm of undermining circumferentially. Patient incontinent of liquid stool twice during assessment. Rectal tube being placed. After placement of rectal tube patient may benefit from wound vac placement.
[2018-07-31] MEDS: SODIUM CL NASAL 45 ML BTL NS SCH ×2 (11:15→21:27)
[2018-07-31] MEDS: GABAPENTIN 250 MG/5 ML 30 ML BOTTLE PO SCH ×3 (11:15→20:05)
--- NOTE | 2018-07-31 15:10 | ASMTCMCOM ---
CM Note CM Note Notes: Patient plan of care reviewed in rounds. She has Cdiff and esbl, on treatment, Wound care following. Likely to return to [facility] [facility] when medically cleared for discharge. CM to follow for needs. Plan: To [facility] when medically cleared. Date Signed: 07/31/2018 03:10 PM Electronically Signed By:Nasra Sparks RN
--- NOTE | 2018-07-31 15:55 | WOCRNPDOC ---
WOCRN Advanced Assessment Note - Skin Integrity Problem, Advanced Assess Left Ischial Tuberosity Pressure Injury Dressing Type: Allevyn Life Dressing Description: Clean/Dry, Intact Closure Description: Not Approximated Exudate Amount: Minimal Exudate Color: Reddish/Yellow Exudate Characteristic(s): Serosanguinous Integumentary Issue Intervention: Dressing Applied Miley Wound Tissue: Erythema, Swollen Miley Wound Swelling: Mild Wound Bed Color: [place], Red, Yellow Wound Bed Constitution: Red/[place] - Non Granular Tissue (85%), Adhered Slough (15 %) Site Measurement - Head-to-Toe Length X Width X Depth (cm): 1.8x2x1.2 Pressure Injury Stage: Stage 3 Pressure Injury Present on Admit: Yes Skin Integrity Problem Comment: CHRISTINE Isabel in room for care, patient's assigned nurse was CHRISTINE Romo. Patient was rolled over onto right side. Wound bed cleaned with normal saline and patted dry with gauze. Skin prep applied miley wound. Mastisol applied around wound edge. Bridge dressing black foam x1 piece placed in wound bed. Drape placed over foam dressing. Bridge dressing track pad attached to dressing, and vac set to -125mmHg with no leaks, alarms, or problems. Wound care will round again Tuesday.
--- NOTE | 2018-07-31 18:10 | HOSPPROG ---
Hospitalist Progress Note Assessment/Plan: * Cdiff -PO vanco -rectal tube to keep wound clean * Neurogenic bladder with Suprapubic catheter - chronic colonization with ESBL -doubt UTI - off antibiotics * Stage 3 decub (POA) -now with wound vac * Advanced MS -Copaxone * Chronic pain with continuous narcotic dependency -Fentanyl patch + MS Contin + scheduled IR oxycodone -this is her home regimen Subjective: No new complaints. Objective: Vital Signs Temp Pulse Resp BP Pulse Ox 36.8 C 79 16 114/57 L 98 07/31/18 08:29 07/31/18 15:39 07/31/18 15:39 07/31/18 15:39 07/31/18 15:39 Microbiology 07/27/18 17:40 Gram Stain - Final Buttock - Swab Wound Culture - Final Proteus Mirabilis Escherichia Coli Esbl Staphylococcus Aureus Laboratory Results 07/31/18 04:15 07/31/18 04:15 07/30/18 07/31/18 08/01/18 05:59 05:59 05:59 Intake Total 975 620 Output Total 700 800 600 Balance 275 -180 -600 PT 12.7 SEC (12.0-15.0) 07/27/18 13:49 INR 0.93 (0.83-1.16) 07/27/18 13:49 Taking IV dilaudid for pain in addition to her large dose chronic narcotics - Physical Exam Constitutional: no apparent distress, appears nourished, not in pain Cardiovascular: regular rate and rhythym, no murmur, rub, or gallop Respiratory: no respiratory distress, no rales or rhonchi, clear to auscultation Gastrointestinal: normoactive bowel sounds, soft, non-tender abdomen, no palpable masses Skin: no rashes or abrasions, no fluctuance, no induration Neurologic: AAOx3, sensation intact bilaterally Psychiatric: interacting appropriately, not anxious, not encephalopathic, thought process linear ICD10 Worksheet Patient Problems: Problems Problem Status Onset Bilateral tibial fractures Acute Fever Acute Acute confusion Acute Urinary tract infection Acute Sepsis Acute Acute lower urinary tract infection Acute Infection due to resistant organism Active Fecal impaction Acute Pneumonia Acute ESBL (extended spectrum beta-lactamase) producing bacteria infection Acute 04/18
[2018-08-01] MEDS: VANCOMYCIN 125 MG/2.5 ML UDL PO SCH ×4 (05:02→21:07)
[2018-08-01] MEDS: oxyCODONE IR 5 MG TAB PO SCH ×3 (08:50→21:07)
[2018-08-01] MEDS: morphINE SR 15 MG TAB PO SCH ×2 (08:52→21:08)
[2018-08-01] MEDS: FUROSEMIDE 20 MG TAB PO SCH (08:52)
[2018-08-01] MEDS: GABAPENTIN 400 MG CAP PO SCH ×3 (08:53→21:07)
[2018-08-01] MEDS: POTASSIUM CL 20 MEQ TAB PO SCH (08:56)
[2018-08-01] MEDS: ENOXAPARIN 40 MG/0.4 ML SYR SC SCH (08:58)
[2018-08-01] MEDS: SODIUM CL NASAL 45 ML BTL NS SCH ×2 (09:00→21:09)
[2018-08-01] MEDS: GLATIRAMER ACETATE 20 MG SQ SCH (09:30)
[2018-08-01] MEDS: DULoxetine 30 MG CAP PO SCH (11:46)
[2018-08-01] MEDS ORDERED: GABAPENTIN 300 MG CAP PO SCH (12:00)
[2018-08-01] MEDS: COLLAGENASE 30 GM OINTMENT TP SCH (14:13)
--- NOTE | 2018-08-01 14:48 | WOCRNPDOC ---
WOCRN Advanced Assessment Note - Skin Integrity Problem, Advanced Assess Left Gluteal Cleft Pressure Injury Dressing Type: Wound Vac Dressing Description: Intact, Soiled Integumentary Issue Intervention: Dressing Removed Miley Wound Tissue: Blanching, Erythema Miley Wound Swelling: Mild Wound Bed Color: Yellow Wound Bed Constitution: Undermining, Adhered Slough (100%) Skin Integrity Problem Comment: Wound vac dressing removed due to stool soilage. Wound cleansed with NS and gauze. Attempted debridement with Debrisoft Lolly, but no noticable change to slough. Patient would benefit from conservative sharp debridement. Given that Jw has not been working to debride the wound, dressing switched to Iodoflex. Demetrius KING in room and discussed dressing selection with her. Wound care will round again tomorrow to consider vac placement and debridement.
--- NOTE | 2018-08-01 15:44 | HOSPPROG ---
Hospitalist Progress Note Assessment/Plan: * Cdiff -PO vanco -massive diarrhea continues * Stage 3 decub (POA) -wound vac placed but had to be removed due to stool contamination -consider replace wound vac when diarrhea slows * Neurogenic bladder with Suprapubic catheter - chronic colonization with ESBL -doubt UTI - off antibiotics * Advanced MS -Copaxone * Chronic pain with continuous narcotic dependency -Fentanyl patch + MS Contin + scheduled IR oxycodone -this is her home regimen Subjective: No new complaints, per nursing massive diarrhea and massive stool output continues Objective: Vital Signs Temp Pulse Resp BP Pulse Ox 36.9 C 79 18 140/98 H 86 L 08/01/18 04:50 08/01/18 04:50 08/01/18 04:50 08/01/18 04:50 08/01/18 04:50 Microbiology 07/27/18 17:40 Gram Stain - Final Buttock - Swab Wound Culture - Final Proteus Mirabilis Escherichia Coli Esbl Staphylococcus Aureus Laboratory Results 07/31/18 04:15 07/31/18 04:15 07/31/18 08/01/18 08/02/18 05:59 05:59 05:59 Intake Total 620 300 Output Total 800 1650 Balance -180 -1350 PT 12.7 SEC (12.0-15.0) 07/27/18 13:49 INR 0.93 (0.83-1.16) 07/27/18 13:49 - Physical Exam Constitutional: no apparent distress, appears nourished, not in pain Cardiovascular: regular rate and rhythym, no murmur, rub, or gallop Respiratory: no respiratory distress, no rales or rhonchi, clear to auscultation Gastrointestinal: normoactive bowel sounds, soft, non-tender abdomen, no palpable masses Skin: no rashes or abrasions, no fluctuance, no induration Neurologic: AAOx3, weakness (chronic due to MS) Psychiatric: interacting appropriately, No encephalopathic, No anxious, No depressed ICD10 Worksheet Patient Problems: Problems Problem Status Onset Bilateral tibial fractures Acute Fever Acute Acute confusion Acute Urinary tract infection Acute Sepsis Acute Acute lower urinary tract infection Acute Infection due to resistant organism Active Fecal impaction Acute Pneumonia Acute ESBL (extended spectrum beta-lactamase) producing bacteria infection Acute 04/18
[2018-08-02 04:54] LABS: PLATELET COUNT 237 10^3/uL (150-400)
[2018-08-02] MEDS: VANCOMYCIN 125 MG/2.5 ML UDL PO SCH ×4 (05:04→21:54)
[2018-08-02] MEDS: GABAPENTIN 400 MG CAP PO SCH ×3 (09:15→21:53)
[2018-08-02] MEDS: POTASSIUM CL 20 MEQ TAB PO SCH (09:15)
[2018-08-02] MEDS: morphINE SR 15 MG TAB PO SCH ×2 (09:15→21:54)
[2018-08-02] MEDS: ENOXAPARIN 40 MG/0.4 ML SYR SC SCH (09:15)
[2018-08-02] MEDS: DULoxetine 30 MG CAP PO SCH (09:15)
[2018-08-02] MEDS: FUROSEMIDE 20 MG TAB PO SCH (09:15)
[2018-08-02] MEDS: COLLAGENASE 30 GM OINTMENT TP SCH ×2 (09:16→09:24)
[2018-08-02] MEDS: oxyCODONE IR 5 MG TAB PO SCH ×3 (09:17→21:53)
[2018-08-02] MEDS: SODIUM CL NASAL 45 ML BTL NS SCH ×2 (09:18→22:00)
[2018-08-02] MEDS: GLATIRAMER ACETATE 20 MG SQ SCH (09:19)
--- NOTE | 2018-08-02 10:28 | ASMTCMCOM ---
CM Note CM Note Notes: Chart reviewed. Patient having excessive stool that warranted removal of wound vac. Wound care to reevaluate today. Patient resident at [facility] and requires assist for all ALD's. She is chronically wheelchair bound and presented with stage III wound. (see wound care). ESBL in urine and active C-diff. CM to follow for needs. Plan: Likely to return to [facility] when medically stable for discharge. Date Signed: 08/02/2018 10:27 AM Electronically Signed By:Nasra Sparks RN
[2018-08-02] MEDS ORDERED: LIDOCAINE 2% JELLY 5 ML TUBE TP ONE (10:47)
[2018-08-02] MEDS ORDERED: LIDOCAINE 2% JELLY 20 ML (UROJECT) TP ONE (11:45)
--- NOTE | 2018-08-02 12:30 | HOSPPROG ---
Hospitalist Progress Note Assessment/Plan: * C diff colitis -PO vanco -still with significant diarrhea but slightly improved * Stage 3 decub (POA) -wound vac placed but had to be removed due to stool contamination -consider replace wound vac when diarrhea slows, re-visit tomorrow * Neurogenic bladder with Suprapubic catheter - chronic colonization with ESBL -doubt UTI - off antibiotics * Advanced MS -Copaxone * Chronic pain with continuous narcotic dependency -Fentanyl patch + MS Contin + scheduled IR oxycodone -this is her home regimen * Chronic hypoxemic resp insufficiency - stable on baseline 2L NC * Anemia - normocytic, likely chronic inflammatory, check Fe studies with next labs Code: DNR VTE ppx: LMWH Dispo: Remain inpatient for mgmt of C diff, decub. Subjective: Diarrhea a bit better. Still soiling decub ulcer. Denies abd pain, n /v, fevers. Objective: Vital Signs Temp Pulse Resp BP Pulse Ox 36.6 C 68 16 91/49 L 97 08/02/18 08:22 08/02/18 08:22 08/02/18 08:22 08/02/18 08:22 08/02/18 08:22 Laboratory Results 08/02/18 04:35 08/02/18 04:35 08/01/18 08/02/18 08/03/18 05:59 05:59 05:59 Intake Total 300 890 Output Total 1650 1600 Balance -1350 -710 PT 12.7 SEC (12.0-15.0) 07/27/18 13:49 INR 0.93 (0.83-1.16) 07/27/18 13:49 - Physical Exam Constitutional: no apparent distress, appears nourished, not in pain Eyes: PERRL, anicteric sclera, EOMI Ears, Nose, Mouth, Throat: moist mucous membranes, hearing normal, ears appear normal, no oral mucosal ulcers Cardiovascular: regular rate and rhythym, no murmur, rub, or gallop Respiratory: no respiratory distress, no rales or rhonchi, clear to auscultation Gastrointestinal: normoactive bowel sounds, soft, non-tender abdomen, no palpable masses Genitourinary: other (suprapubic catheter) Skin: no rashes or abrasions, no fluctuance, no induration Neurologic: AAOx3, sensation intact bilaterally Psychiatric: interacting appropriately, not anxious, not encephalopathic, thought process linear ICD10 Worksheet Patient Problems: Problems Problem Status Onset Sepsis Acute Urinary tract infection Acute Infection due to resistant organism Active Acute confusion Acute Acute lower urinary tract infection Acute Bilateral tibial fractures Acute ESBL (extended spectrum beta-lactamase) producing bacteria infection Acute 04/18 Fecal impaction Acute Fever Acute Pneumonia Acute
[2018-08-02] MEDS: BACLOFEN 10 MG TAB PO PRN (13:49)
--- NOTE | 2018-08-02 16:55 | WOCRNPDOC ---
WOCRN Advanced Assessment Note - Skin Integrity Problem, Advanced Assess Left Ischial Tuberosity Pressure Injury Dressing Type: Allevyn Life, Gauze Dressing Description: Clean/Dry, Intact Exudate Amount: None Miley Wound Tissue: Erythema, Painful/Tender Wound Bed Constitution: Adhered Slough (100%) Pressure Injury Stage: Unstageable Skin Integrity Problem Comment: Thick adhered slough in wound bed. Discussed need for bedside debridement with patient who was in agreement. Will be done tomorrow. Wound cleaned with ns and gauze. iodoflex placed in wound bed and covered with alleyvn life dressing. May be able to place wound vac again after debridement as wound may be clean enough and patient has not been severely incontinent of stool for 12+ hours. [employer] in room for care.
[2018-08-03] MEDS: VANCOMYCIN 125 MG/2.5 ML UDL PO SCH ×4 (06:16→20:59)
[2018-08-03] MEDS: GABAPENTIN 400 MG CAP PO SCH ×3 (09:20→20:58)
[2018-08-03] MEDS: oxyCODONE IR 5 MG TAB PO SCH ×3 (09:25→20:59)
[2018-08-03] MEDS: DULoxetine 30 MG CAP PO SCH (09:26)
[2018-08-03] MEDS: morphINE SR 15 MG TAB PO SCH ×2 (09:27→20:59)
[2018-08-03] MEDS: POTASSIUM CL 20 MEQ TAB PO SCH (09:27)
[2018-08-03] MEDS: FUROSEMIDE 20 MG TAB PO SCH (09:27)
[2018-08-03] MEDS: ENOXAPARIN 40 MG/0.4 ML SYR SC SCH (09:28)
[2018-08-03] MEDS: fentaNYL 50 MCG PATCH TD SCH (09:28)
[2018-08-03] MEDS: SODIUM CL NASAL 45 ML BTL NS SCH ×2 (09:30→21:07)
[2018-08-03] MEDS: GLATIRAMER ACETATE 20 MG SQ SCH (09:31)
[2018-08-03] MEDS ORDERED: LIDOCAINE 2% JELLY 20 ML (UROJECT) UR ONE (09:32)
--- NOTE | 2018-08-03 09:35 | HOSPPROG ---
Hospitalist Progress Note Assessment/Plan: * C diff colitis - improving -PO vanco * Stage 3 decub (POA) -wound vac placed but had to be removed due to stool contamination -wound care planning on debridement today with possible replacement of wound vac now that diarrhea has improved * Neurogenic bladder with Suprapubic catheter - chronic colonization with ESBL -doubt UTI - off antibiotics * Advanced MS -Copaxone * Chronic pain with continuous narcotic dependency -Fentanyl patch + MS Contin + scheduled IR oxycodone -this is her home regimen * Chronic hypoxemic resp insufficiency - stable on baseline 2L NC * Anemia - normocytic, likely chronic inflammatory, check Fe studies with AM labs Code: DNR VTE ppx: LMWH Dispo: Remain inpatient for mgmt of C diff, decub. Plan to dc back to [facility] once has wound vac in place. Subjective: Doing well, no abd pain. No BMs overnight. Had 3 yesterday. Objective: Vital Signs Temp Pulse Resp BP Pulse Ox 36.4 C 73 16 113/54 L 94 08/03/18 08:07 08/03/18 08:07 08/03/18 08:07 08/03/18 08:07 08/03/18 08:07 Laboratory Results 08/02/18 04:35 08/02/18 04:35 08/02/18 08/03/18 08/04/18 05:59 05:59 05:59 Intake Total 890 600 Output Total 1600 1650 Balance -710 -1050 PT 12.7 SEC (12.0-15.0) 07/27/18 13:49 INR 0.93 (0.83-1.16) 07/27/18 13:49 - Physical Exam Constitutional: no apparent distress, appears nourished, not in pain Eyes: other (dysconjugate gaze) Ears, Nose, Mouth, Throat: moist mucous membranes, hearing normal, ears appear normal, no oral mucosal ulcers Cardiovascular: regular rate and rhythym, no murmur, rub, or gallop Respiratory: no respiratory distress, no rales or rhonchi, clear to auscultation Gastrointestinal: normoactive bowel sounds, soft, non-tender abdomen, no palpable masses Genitourinary: other (suprapubic cath) Skin: no rashes or abrasions, no fluctuance, no induration Neurologic: AAOx3 Psychiatric: interacting appropriately, not anxious, not encephalopathic, thought process linear ICD10 Worksheet Patient Problems: Problems Problem Status Onset Sepsis Acute Urinary tract infection Acute Infection due to resistant organism Active Acute confusion Acute Acute lower urinary tract infection Acute Bilateral tibial fractures Acute ESBL (extended spectrum beta-lactamase) producing bacteria infection Acute 04/18 Fecal impaction Acute Fever Acute Pneumonia Acute
--- NOTE | 2018-08-03 10:26 | WOCRNPDOC ---
[facility] Advanced Assessment Note - Skin Integrity Problem, Advanced Assess Left Ischial Tuberosity Pressure Injury Dressing Type: Allevyn Life, Gauze Dressing Description: Clean/Dry, Intact Exudate Amount: None Integumentary Issue Intervention: Dressing Changed Miley Wound Tissue: Blanching, Erythema, Scarred Miley Wound Swelling: None Wound Bed Color: Yellow Wound Bed Constitution: Adhered Slough (100% pre debridement/ 90% post debridement. ) Pressure Injury Stage: Stage 4 Pressure Injury Present on Admit: Yes Skin Integrity Problem Comment: Per report from RN patient has not been stooling as often. Conservative Sharp Bedside Debridement Performed: Yes Consent Signed for Debridement: Yes Timeout Performed per Protocol: Yes (0937) Instrument Used for Debridement: Scapel Estimated Blood Loss from Debridement: 0 Conservative Sharp Bedside Debridement Comment: Bedside debridement reviewed with patient including risks/benefits. Patient numbed with 2% lidocaine jelly. Tolerated procedure well. Extensive slough and necrotic tissue filled wound bed ; more than anticipated. The necrosis went quite deep down close to the bone and debridement was halted at that point. Substantial amounts of slough were removed, however much of the wound was still necrotic. Recommend surgical debridement for this wound with wound vac placement. Findings communicated to Dr. Cummings.
--- NOTE | 2018-08-03 12:24 | ASMTCMCOM ---
CM Note CM Note Notes: Patient plan of care reviewed in rounds. She is likely in need of surgical debridement of her wound with placement of a wound vac. Spoke to nursing staff at [facility] who stated they can accomodate a wound vac but charges may be incurred to the family for daily care. CM to follow. Plan: Likely to return to [facility] when medically cleared fro discharge. Date Signed: 08/03/2018 12:24 PM Electronically Signed By:Nasra Sparks RN
--- NOTE | 2018-08-03 20:50 | GCON ---
DATE OF CONSULTATION: 08/03/2018 REFERRING PHYSICIAN: Vinicius Cummings MD HISTORY OF PRESENT ILLNESS: The patient is a 78-year-old woman who has had pressure ulcer on her lef t ischial tuberosity for quite some time. She is unsure when it first started, but it has been getti ng worse. She was admitted to the hospital, and Surgery was consulted initially, who did not think t hat operative debridement was needed. Summer Herb saw her again today, and it had more adhered slou gh. She started bedside debridement, and then noted that the unstageable ulcer was clearly a stage I V pressure ulcer. I was asked to see the patient to consider operative debridement and exploration. PAST MEDICAL HISTORY: C difficile colitis, neurogenic bladder, advanced MS, chronic hypoxemic respir atory insufficiency. ALLERGIES: Clindamycin, sulfa. FAMILY HISTORY: Significant for cancer. SOCIAL HISTORY: She lives at [facility]. REVIEW OF SYSTEMS: Significant for deconditioning, some difficulty breathing, symptoms associated wi th MS, limited mobility; otherwise, 10-point review of systems negative. PHYSICAL EXAMINATION: VITAL SIGNS: 36.6, 80, 92/43, 18, 94% on 2 L. GENERAL: Pleasant woman sitti ng up on bed. HEENT: She does have hearing deficit. She also has dysconjugate gaze. Her pupils ar e equal and round. Mucous membranes moist. No scleral icterus. LUNGS: Clear to auscultation bilat erally. No increased work of breathing. CARDIAC: Regular rate. SKIN: On her left ischial tuberos ity, there is a stage IV pressure ulcer. There is debris at the base of the wound. NEURO: Decrease d sensation. PSYCH: Mood and affect normal. IMPRESSION/PLAN: The patient is a 78-year-old with multiple sclerosis and a stage IV pressure ulcer on her ischial tuberosity. I will take her to the operating room for exploration, debridement and wo und vacuum-assisted closure placement. She understands that she may need additional surgery to get t he wound to heal. She understands the importance of offloading. She had her questions answered to er satisfaction. /[id number]
[2018-08-04] MEDS: oxyCODONE IR 5 MG TAB PO PRN (03:59)
[2018-08-04] MEDS: VANCOMYCIN 125 MG/2.5 ML UDL PO SCH ×4 (05:45→20:29)
[2018-08-04] MEDS ORDERED: LR 1,000 ML IV ONE (07:47)
[2018-08-04] MEDS ORDERED: BUPIVACAINE 0.5% 30 ML SDV ONE ×2 (08:02→08:35)
--- NOTE | 2018-08-04 08:24 | PDANEPAE ---
ANE History of Present Illness ischial debridement ANE Past Medical History - Pulmonary History Hx COPD: Yes Hx Oxygen in Use at Home: Yes O2 in Use at Home (L/minute): 2 Hx Sleep Apnea: Yes Sleep Apnea Screening Result - Last Documented: Positive - Neurologic History Neurologic History Comment: chronic MS-severe - Endocrine History Hx Diabetes: No - Chronic Pain History Chronic Pain: Yes (fentnyl patch) ANE Review of Systems Review of systems is: negative Review of Systems: - Exercise capacity METS (RN): 2 METS ANE Patient History - Allergies Allergies/Adverse Reactions: clindamycin [Clindamycin] Allergy (Severe, Verified 01/12/18 20:10) Abdominal Pain Sulfa (Sulfonamide Antibiotics) Allergy (Severe, Verified 01/12/18 20:10) Unknown - Home Medications Home medications: home medication list seen and reviewed Home Medications: Polyethylene Glycol 3350 [Miralax 17 gm (*)] 17 g PO BID 09/20/12 [Last Taken ] Cholecalciferol Vit D3 [Vitamin D3 (*)] 50,000 unit PO Q30D 05/16/16 [Last Taken 07/10/17] Furosemide [Lasix 20 MG (*)] 40 mg PO DAILY 05/16/16 [Last Taken 07/15/17] Glatiramer Acetate [Copaxone] 20 mg SQ DAILY 07/15/17 [Last Taken 07/15/17] Ondansetron Odt [Zofran Odt 4 mg (*)] 4 mg PO TID PRN 07/16/17 [Last Taken 07/05] DULoxetine [Cymbalta 30 MG (*)] 30 mg PO DAILY 01/13/18 [Last Taken Unknown] Gabapentin [Neurontin Oral Liquid] 1,200 mg PO BID 01/13/18 [Last Taken Unknown] Gabapentin [Neurontin Oral Liquid] 800 mg PO DAILY@12 01/13/18 [Last Taken Unknown] Ibuprofen [Motrin (*)] 600 mg PO TID PRN 01/13/18 [Last Taken Unknown] Nystatin Powder [Mycostatin Powder] 1 julien TP TID PRN 01/13/18 [Last Taken Unknown] Phenazopyridine HCl [Pyridium] 100 mg PO TID PRN 01/13/18 [Last Taken Unknown] Potassium Cl [Klor-Con 20 meq (*)] 20 meq PO DAILY 01/13/18 [Last Taken Unknown] Sennosides/Docusate Sodium [Senna-S Tablet] 1 each PO BID 01/13/18 [Last Taken Unknown] Sodium Cl Nasal [[place] (*)] 1 spray NS QID PRN 01/13/18 [Last Taken Unknown] fentaNYL [Duragesic 50 MCG Patch (*)] 50 mcg TD Q72H 01/13/18 [Last Taken Unknown] oxyCODONE IR [Oxycodone Ir (*)] 5 mg PO BID PRN 01/13/18 [Last Taken Unknown] oxyCODONE IR [Oxycodone Ir (*)] 7.5 mg PO TID 01/13/18 [Last Taken Unknown] Acetaminophen [Tylenol 325mg (*)] 650 mg PO Q4 PRN 07/27/18 [Last Taken Unknown] Albuterol [Proventil Neb] 3 ml IH Q2 PRN 07/27/18 [Last Taken Unknown] Baclofen [Baclofen 10 mg (*)] 10 mg PO Q6 PRN 07/27/18 [Last Taken Unknown] Bisacodyl [Dulcolax] 10 mg RC HS PRN 07/27/18 [Last Taken Unknown] Bisacodyl [Dulcolax] 10 mg RC Q3D@21 07/27/18 [Last Taken Unknown] Calcium Carbonate [Tums 500MG (*)] 1,250 mg PO QID PRN 07/27/18 [Last Taken Unknown] Collagenase [Santyl (*)] 1 julien TP DAILY 07/27/18 [Last Taken Unknown] Dextran 70/Hypromellose [Artificial Tears Eye Drops] 1 drop EACHEYE Q4 PRN 07/27 [Last Taken Unknown] Ipratropium/Albuterol [Duoneb (*)] 3 ml IH Q4 PRN 07/27/18 [Last Taken Unknown] Magnesium Hydroxide [Milk of Magnesia] 30 ml PO DAILY PRN 07/27/18 [Last Taken Unknown] Polyethylene Glycol 3350 [Miralax 17 gm (*)] 17 gm PO DAILY 07/27/18 [Last Taken Unknown] Sodium Cl Nasal [[place] (*)] 1 spray NS BID 07/27/18 [Last Taken Unknown] guaiFENesin/DEXTROMETHORPHAN [Robitussin Dm Oral Liquid (*)] 10 ml PO Q6 PRN [Last Taken Unknown] - NPO status NPO Status: no food or drink >8 hours NPO Since - Liquids (Date): 08/03/18 NPO Since - Liquids (Time): 23:00 NPO Since - Solids (Date): 08/03/18 NPO Since - Solids (Time): 22:00 - Anes Hx Anes Hx: no prior problems - Smoking Hx Smoking Status: Unknown if ever smoked - Alcohol Use Alcohol Use: Sober - Family Anes Hx Family Anes Hx: none ANE Labs/Vital Signs - Labs Result Diagrams: 08/02/18 04:35 08/04/18 04:28 - Vital Signs Blood Pressure: 115/63 Heart Rate: 74 Respiratory Rate: 16 O2 Sat (%): 95 Height: 157.48 cm Weight: 64.8 kg ANE Physical Exam - Airway Mallampati Score: Class 2 Mouth exam: poor dentition, small mouth opening - Pulmonary Pulmonary: inspiratory crackles - Cardiovascular Cardiovascular: regular rate and rhythym - ASA Status ASA Status: III ANE Anesthesia Plan Anesthesia Plan: GA w LMA
[2018-08-04] MEDS ORDERED: PROPOFOL/EMULSION 500 MG/50 ML BOTTLE IV ONE (08:45)
[2018-08-04] MEDS ORDERED: LIDOCAINE 2% JELLY 5 ML TUBE ONE (08:46)
[2018-08-04] MEDS ORDERED: LIDOCAINE 2% 100 MG/5 ML SYR ONE (08:47)
--- NOTE | 2018-08-04 09:36 | POSTOPPROG ---
Post Op Note Date of Operation: 08/04/18 Surgeon: Ya Campos Anesthesiologist: [email or web address] Anesthesia: GET(General Endotracheal) Pre-op Diagnosis: stage IV pressure ulcer Post-op Diagnosis: same Indication: 78 yo with stage IV pressure ulcer Procedure: debride skin soft tissue and bone Findings: [id number] Inf/Abcess present in the surg proc area at time of surgery?: Yes Depth: Deep Incisional (Fascial)
[2018-08-04] MEDS ORDERED: NALOXONE HCL 0.4 MG/ML INJ IVP PRN (09:38)
[2018-08-04] MEDS ORDERED: HYDROCODONE/APAP 5/325 TAB PO PRN (09:38)
[2018-08-04] MEDS ORDERED: ONDANSETRON 4 MG/2 ML VIAL IVP PRN (09:38)
[2018-08-04] MEDS ORDERED: DEXAMETHASONE 4 MG/ML VIAL IVP PRN (09:38)
[2018-08-04] MEDS ORDERED: ALBUTEROL 3 ML DEYVIAL IH PRN (09:38)
[2018-08-04] MEDS ORDERED: ACETAMINOPHEN 500 MG TAB PO PRN (09:38)
[2018-08-04] MEDS ORDERED: LABETALOL HCL 5 MG/ML 20 ML MDV IVP PRN (09:38)
[2018-08-04] MEDS ORDERED: LR 500 ML IV PRN (09:38)
[2018-08-04] MEDS ORDERED: PHENYLEPHRINE HCL 100 MCG/ML SYR IVP PRN (09:38)
[2018-08-04] MEDS ORDERED: fentaNYL 100 MCG/2 ML INJ ONE (09:46)
[2018-08-04] MEDS: fentaNYL 100 MCG/2 ML INJ IVP PRN ×4 (09:53→10:45)
--- NOTE | 2018-08-04 13:02 | WOCRNPDOC ---
WOCRN Advanced Assessment Note - Skin Integrity Problem, Advanced Assess Left Ischial Tuberosity Pressure Injury Dressing Type: Wound Vac Dressing Description: Intact Skin Integrity Problem Comment: Machine alarming leak. Patient positioned on right side and small leak detected where bridge dressing attached to dressing at site of wound. Mastisol applied followed by drape. Seal check showed no leak detected. Wound care will round on Tuesday for dressing change. Please follow wound vac guidelines under wound vac management order if another leak is detected.
[2018-08-04] MEDS: PHENAZOPYRIDINE HCL 100 MG TAB PO PRN (13:55)
[2018-08-04] MEDS: oxyCODONE IR 5 MG TAB PO SCH ×3 (13:56→22:13)
[2018-08-04] MEDS: FUROSEMIDE 20 MG TAB PO SCH (13:56)
[2018-08-04] MEDS: DULoxetine 30 MG CAP PO SCH (14:01)
[2018-08-04] MEDS: GABAPENTIN 400 MG CAP PO SCH ×3 (14:02→22:16)
[2018-08-04] MEDS: ENOXAPARIN 40 MG/0.4 ML SYR SC SCH (14:03)
[2018-08-04] MEDS: POTASSIUM CL 20 MEQ TAB PO SCH (14:03)
[2018-08-04] MEDS: GLATIRAMER ACETATE 20 MG SQ SCH (14:07)
[2018-08-04] MEDS: SODIUM CL NASAL 45 ML BTL NS SCH ×2 (14:08→21:20)
[2018-08-04] MEDS: morphINE SR 15 MG TAB PO SCH ×2 (14:08→20:29)
--- NOTE | 2018-08-04 14:54 | GOP ---
DATE OF OPERATION: 08/04/2018 SURGEON: Ya Campos MD ANESTHESIA: General. ANESTHESIOLOGIST: Juan Gallo MD. PREOPERATIVE DIAGNOSIS: Left ischial pressure ulcer, stage IV. POSTOPERATIVE DIAGNOSIS: Left ischial pressure ulcer, stage IV. PROCEDURE PERFORMED: Debridement of skin, soft tissue, and bone with wound vacuum-assisted closure p lacement. FINDINGS: Wound measures 3 x 3 x 2 cm with a small amount of bone exposed at the base. SPECIMENS: None. INDICATIONS: The patient is a 78-year-old with multiple comorbidities including multiple sclerosis a nd has had a pressure ulcer on her left ischium for quite some time. Debridement at bedside was not feasible. DESCRIPTION OF PROCEDURE: Patient was brought into the operating room, placed supine on the table, a nd general anesthesia was administered. She was placed in the decubitus position with the left side up. Her bottom was prepped with Betadine and draped in the usual sterile fashion. I excised the ulc er until I reached healthy fat. At the base of the wound there was a small amount of bone. I debrid ed this as well. Hemostasis was achieved with electrocautery. Wound VAC placed. She was placed kike into the supine position, extubated, and transferred to PACU in stable condition. /[id number]/MODL
--- NOTE | 2018-08-04 15:15 | POSTANESTH ---
Post Anesthetic Evaluation Cardiovascular Status: Normal, Stable Respiratory Status: Similar to Pre-op Cond., Tx Decrease in SpO2 Level of Consciousness/Mental Status: Can Participate in Eval Pain Control: Adequate, Prn Tx Ordered Nausea/Vomiting Control: Adequate, Prn Tx Ordered Complications Possibly Related to Anesthesia: None Noted
--- NOTE | 2018-08-04 16:06 | ASMTCMCOM ---
CM Note CM Note Notes: Wound vac order + clinicals faxed to [facility]. E-signature form emailed to Dr Campos. Case Management will follow. Date Signed: 08/04/2018 04:05 PM Electronically Signed By:Tyra Feliz RN
--- NOTE | 2018-08-04 16:50 | HOSPPROG ---
Hospitalist Progress Note Assessment/Plan: * Stage 3 decub (POA) -s/p OR debridement and wound vac placement today -discussed with CM and ensuring that she has appropriate wound vac supplies at [facility] * C diff colitis - significantly better, no diarrhea in 24 hours -PO vanco * Left eye discomfort - consistent with foreign body but did not visualize on exam; doubt corneal abrasion, optic neuritis, or other emergent ophtho issue given her lack of concerning symptoms -artificial tears to help try and flush * Neurogenic bladder with Suprapubic catheter - chronic colonization with ESBL -doubt UTI - off antibiotics * Advanced MS -Copaxone * Chronic pain with continuous narcotic dependency -Fentanyl patch + MS Contin + scheduled IR oxycodone -this is her home regimen * Chronic hypoxemic resp insufficiency - stable on baseline 2L NC * Anemia - normocytic, likely chronic inflammatory, check Fe studies with AM labs Code: DNR VTE ppx: LMWH Dispo: Remain inpatient for mgmt of C diff, decub. Plan to dc back to [facility], possibly in next 1-2 days. Subjective: To OR this AM for debridement and wound vac placement. Doing well post-operatively. No complaints except left eye discomfort. Feels like something in eye. No eye pain, trouble with movement, double/blurry vision. No diarrhea in 24 hours. Objective: Vital Signs Temp Pulse Resp BP Pulse Ox 36.9 C 97 12 124/67 H 95 08/04/18 15:59 08/04/18 16:12 08/04/18 16:12 08/04/18 15:59 08/04/18 16:12 Laboratory Results 08/02/18 04:35 08/04/18 04:28 08/03/18 08/04/18 08/05/18 05:59 05:59 05:59 Intake Total 600 450 300 Output Total 1650 1150 25 Balance -1050 -700 275 PT 12.7 SEC (12.0-15.0) 07/27/18 13:49 INR 0.93 (0.83-1.16) 07/27/18 13:49 - Physical Exam Constitutional: no apparent distress, appears nourished, not in pain Eyes: other (no conjunctival injection, EOMI, PERRL, no obvious foriegn body) Ears, Nose, Mouth, Throat: moist mucous membranes, hearing normal, ears appear normal, no oral mucosal ulcers Cardiovascular: regular rate and rhythym, no murmur, rub, or gallop Respiratory: no respiratory distress, no rales or rhonchi, clear to auscultation Gastrointestinal: normoactive bowel sounds, soft, non-tender abdomen, no palpable masses Genitourinary: other (suprapubic cath in place) Skin: no rashes or abrasions, no fluctuance, no induration Musculoskeletal: other (changes from advanced MS) Neurologic: AAOx3 Psychiatric: interacting appropriately, not anxious, not encephalopathic, thought process linear ICD10 Worksheet Patient Problems: Problems Problem Status Onset Sepsis Acute Urinary tract infection Acute Infection due to resistant organism Active Acute confusion Acute Acute lower urinary tract infection Acute Bilateral tibial fractures Acute ESBL (extended spectrum beta-lactamase) producing bacteria infection Acute 04/18 Fecal impaction Acute Fever Acute Pneumonia Acute
[2018-08-05] MEDS: oxyCODONE IR 5 MG TAB PO PRN ×2 (03:24→23:27)
[2018-08-05] MEDS: ACETAMINOPHEN 325 MG TAB PO PRN ×2 (05:00→11:44)
[2018-08-05] MEDS: VANCOMYCIN 125 MG/2.5 ML UDL PO SCH ×4 (05:00→20:32)
[2018-08-05] MEDS: POTASSIUM CL 20 MEQ TAB PO SCH (08:43)
[2018-08-05] MEDS: FUROSEMIDE 20 MG TAB PO SCH (08:43)
[2018-08-05] MEDS: morphINE SR 15 MG TAB PO SCH ×2 (08:43→20:32)
[2018-08-05] MEDS: GABAPENTIN 400 MG CAP PO SCH ×3 (08:43→20:32)
[2018-08-05] MEDS: oxyCODONE IR 5 MG TAB PO SCH ×3 (08:44→22:07)
[2018-08-05] MEDS: DULoxetine 30 MG CAP PO SCH (08:44)
[2018-08-05] MEDS: ENOXAPARIN 40 MG/0.4 ML SYR SC SCH (08:44)
[2018-08-05] MEDS: SODIUM CL NASAL 45 ML BTL NS SCH ×2 (08:54→22:08)
[2018-08-05] MEDS: GLATIRAMER ACETATE 20 MG SQ SCH (08:57)
--- NOTE | 2018-08-05 13:26 | ASMTCMCOM ---
IRINEO Note IRINEO Note Notes: IRINEO recieved wound vac approval and delivered it to pt's room. Called [facility] to confirm that they would do wound vac care, IRINEO spoke with Kevin but they did not seem to be equipped to accomodate dressing changes 3/week. IRINEO spoke with Kinjal at [facility] [phone] and she is able to accept. Discharge likely on Tuesday, dtrs notified. Pt will need [facility] stretcher to return, as she is dependent for all cares. Signed paperwork faxed back to [facility] Plan: [facility] + [facility] Home care (RN) Date Signed: 08/05/2018 01:26 PM Electronically Signed By:Tiffany Santos RN
--- NOTE | 2018-08-05 14:19 | SOAPPROG ---
SOAP Progress Note Assessment/Plan: Assessment: POD # 1 s/p debridement skin, soft tissue and bone L ischial tuberosity Can DC when medically ready Wound vac 3x per week May need flap vs gradual closure Needs to be on a pressure relief mattress S: Pain controlled O: Wound vac to suction Plan: 08/05/18 14:18 Objective: Vital Signs Temp Pulse Resp BP Pulse Ox 36.6 C 91 15 102/52 L 95 08/05/18 11:51 08/05/18 11:51 08/05/18 11:51 08/05/18 11:51 08/05/18 11:51 Laboratory Results 08/02/18 04:35 08/04/18 04:28 08/04/18 08/05/18 08/06/18 05:59 05:59 04:59 Intake Total 450 550 Output Total 1150 2100 Balance -700 -1550 PT 12.7 SEC (12.0-15.0) 07/27/18 13:49 INR 0.93 (0.83-1.16) 07/27/18 13:49 ICD10 Worksheet Patient Problems: Problems Problem Status Onset Sepsis Acute Urinary tract infection Acute Infection due to resistant organism Active Acute confusion Acute Acute lower urinary tract infection Acute Bilateral tibial fractures Acute ESBL (extended spectrum beta-lactamase) producing bacteria infection Acute 04/18 Fecal impaction Acute Fever Acute Pneumonia Acute
--- NOTE | 2018-08-05 14:39 | HOSPPROG ---
Hospitalist Progress Note Assessment/Plan: * Stage 3 decub (POA) -s/p OR debridement and wound vac placement 08/04 (Dr Campos) -discussed with CM - [facility] is ok with caring for her wound vac * C diff colitis - significantly better, no diarrhea in 2 days -PO vanco to complete 14 day course * Neurogenic bladder with Suprapubic catheter - chronic colonization with ESBL -doubt UTI - off antibiotics * Advanced MS -Copaxone * Chronic pain with continuous narcotic dependency -Fentanyl patch + MS Contin + scheduled IR oxycodone -this is her home regimen * Chronic hypoxemic resp insufficiency - stable on baseline 2L NC * Anemia - normocytic, likely chronic inflammatory, iron replete * Left eye discomfort - resolved Code: DNR VTE ppx: LMWH Dispo: Remain inpatient for mgmt of C diff, decub. Plan to dc back to [place] tomorrow Subjective: Doing well. Eye pain has resolved. No pain at surgical site. Wanting to go home. Objective: Vital Signs Temp Pulse Resp BP Pulse Ox 36.6 C 91 15 102/52 L 95 08/05/18 11:51 08/05/18 11:51 08/05/18 11:51 08/05/18 11:51 08/05/18 11:51 Laboratory Results 08/02/18 04:35 08/04/18 04:28 08/04/18 08/05/18 08/06/18 05:59 05:59 04:59 Intake Total 450 550 Output Total 1150 2100 Balance -700 -1550 PT 12.7 SEC (12.0-15.0) 07/27/18 13:49 INR 0.93 (0.83-1.16) 07/27/18 13:49 - Physical Exam Constitutional: no apparent distress, appears nourished, not in pain Eyes: PERRL, anicteric sclera, EOMI Ears, Nose, Mouth, Throat: moist mucous membranes, hearing normal, ears appear normal, no oral mucosal ulcers Cardiovascular: regular rate and rhythym, no murmur, rub, or gallop Respiratory: other (clear anterolaterally) Gastrointestinal: normoactive bowel sounds, soft, non-tender abdomen, no palpable masses Genitourinary: other (suprapubic cath) Skin: other (wound vac in place) Musculoskeletal: other (chronic changes from advnaced MS) Neurologic: AAOx3, sensation intact bilaterally Psychiatric: interacting appropriately, not anxious, not encephalopathic, thought process linear ICD10 Worksheet Patient Problems: Problems Problem Status Onset Sepsis Acute Urinary tract infection Acute Infection due to resistant organism Active Acute confusion Acute Acute lower urinary tract infection Acute Bilateral tibial fractures Acute ESBL (extended spectrum beta-lactamase) producing bacteria infection Acute 04/18 Fecal impaction Acute Fever Acute Pneumonia Acute
[2018-08-05] MEDS: PHENAZOPYRIDINE HCL 100 MG TAB PO PRN (23:27)
[2018-08-06] MEDS: BACLOFEN 10 MG TAB PO PRN ×2 (01:59→14:14)
[2018-08-06] MEDS: VANCOMYCIN 125 MG/2.5 ML UDL PO SCH ×3 (06:06→15:38)
[2018-08-06 06:11] VITALS: BP 132/67
[2018-08-06] MEDS: fentaNYL 50 MCG PATCH TD SCH (08:05)
[2018-08-06] MEDS: oxyCODONE IR 5 MG TAB PO SCH ×2 (09:08→15:38)
[2018-08-06] MEDS: FUROSEMIDE 20 MG TAB PO SCH (09:09)
[2018-08-06] MEDS: GABAPENTIN 400 MG CAP PO SCH ×2 (09:10→12:56)
[2018-08-06] MEDS: morphINE SR 15 MG TAB PO SCH (09:10)
[2018-08-06] MEDS: DULoxetine 30 MG CAP PO SCH (09:10)
[2018-08-06] MEDS: POTASSIUM CL 20 MEQ TAB PO SCH (09:10)
[2018-08-06] MEDS: ENOXAPARIN 40 MG/0.4 ML SYR SC SCH (09:11)
[2018-08-06] MEDS: SODIUM CL NASAL 45 ML BTL NS SCH (09:42)
[2018-08-06] MEDS: GLATIRAMER ACETATE 20 MG SQ SCH (09:56)
--- NOTE | 2018-08-06 14:09 | PDIAF ---
- Diagnosis Code Status: Do Not Resuscitate - Medication Management Mcc Antibiotics: she is taking po vancomycin for + c diff, length of treatment per PCP Discharge Medications: electronically signed and located in the Home Medication List. PICC Care - Routine: N/A - Orders Home Care Face to Face: 08/06/2018 Hilary Soliman MD Isolation Type: CDIFF Isolation, Contact Isolation Diet Texture: Dysphagia 1 - Pureed, Thin Liquids Lozano: Yes (suprapubic) Additional Instructions: Bedsore (Pressure injury) care: You have a stage 4 pressure injury (also known as a bedsore) on left ischium ( sit bone) To help heal this wound and avoid further injury please do the following: Reposition yourself frequently, at least every 15 minutes when sitting so that the tissues fully reperfuse with blood. We recommend sitting on an specialty cushion that is mapped for your bottom. Please never use a doughnut. When youre in bed, try to rest on your side as much as possible, and change position every two hours (for example, turn or tilt from your right side toward your left).~ Need to sleep on a pressure relief support mattress Wound care orders: 1. Clean with ns and gauze 2. Skin prep nurys wound 3. Change wound vac 3 x per week. F/U with Dr. Campos in 2 weeks. Bring supplies to appointment - Follow Up Care Current Providers and Referrals: Ya Campos MD [Medical Doctor] - follow up in 2 weeks Patient,NotPresent [Primary Care Provider] - As per Instructions
[2018-08-06] MEDS: oxyCODONE IR 5 MG TAB PO PRN (14:14)
--- NOTE | 2018-08-06 14:39 | ASMTLACE ---
LACE Length of stay for Answers: 7-13 days current admission Comorbidities - select Answers: Chronic pulmonary disease all that apply Connective tissue disease Coronary Artery Disease # of Emergency department Answers: 1-2 visits in the last 6 months Score: 13 Date Signed: 08/06/2018 02:38 PM Electronically Signed By:Nasra Sparks RN
--- NOTE | 2018-08-06 14:46 | ASMTCMCOM ---
CM Note CM Note Notes: Patient plan of care reviewed in rounds. Per CM report patient to dc back to [facility] with [facility] providing wound care to change wound vac per MD orders. Dinora at [facility] aware of transportation set up for 4pm with [facility] via stretcher and oxygen. Spoke with her daughter Tex and also spoke to [facility] Chanlel. Final orders via allscripts. CM available should other needs arise. Plan: Return to [facility] via [facility] with [facility] to follow. Date Signed: 08/06/2018 02:45 PM Electronically Signed By:Nasra Sparks RN
[2018-08-09] MEDS ORDERED: fentaNYL 50 MCG PATCH TD SCH (08:30)
== END 2018-08-06 15:57 | disposition home health service (06) | DRG 853 ==
LOC: EDUNIT# → OBSVTOIN 15:45 → F1N 16:02
PROVIDERS: ADMIT Hospitalist; ATTEND Hospitalist
PROC: 0JB90ZZ Excision of Buttock Subcutaneous Tissue and Fascia, Open Approach (ICD-10-PCS; principal; 2018-08-04 08:30)
DX: A41.9 Sepsis, unspecified organism (principal); L89.324 Pressure ulcer of left buttock, stage 4; L89.323 Pressure ulcer of left buttock, stage 3; G93.40 Encephalopathy, unspecified; A04.72 Enterocolitis due to Clostridium difficile, not specified as recurrent; F11.20 Opioid dependence, uncomplicated; E86.9 Volume depletion, unspecified; J44.9 Chronic obstructive pulmonary disease, unspecified; G35 Multiple sclerosis; Z23 Encounter for immunization; N31.9 Neuromuscular dysfunction of bladder, unspecified; G62.9 Polyneuropathy, unspecified; G89.29 Other chronic pain; Z66 Do not resuscitate
CPT/HCPCS: 92526-GN; 92610-GN; G0008; G0009; G8996-GN-CI; G8996-GN-CK; G8997-GN-CI; G8998-GN-CI; J1170; J1335; J1650; J2001; J2704; J3010; J3480

== ENCOUNTER 2018-09-02 13:04 | Inpatient (IN) | payer OTHER, MEDICAID ==
--- NOTE | 2018-09-02 13:29 | EDPHY ---
H & P Time Seen by Provider: 09/02/18 13:23 HPI/ROS: CHIEF COMPLAINT: Increasing white blood cell count and sacral pain HISTORY OF PRESENT ILLNESS: 78-year-old woman is wheelchair bound with multiple sclerosis, has a history of Clostridium difficile 1 month ago and has an indwelling catheter for neurogenic bladder. She also has COPD and a chronic cough. She has a sacral decubitus ulcer which is being treated by Dr. Ya aCmpos for the last month. Currently has a wound VAC. Over the last week the patient has been getting increasing pain in the sacrum with last day or 2 she says it is killing her. She says the pain is 10/10 and her white blood cell count has trended upwards from 8 on August 23 to 11 on August 28 to 15 on September 02. She has a chronic cough which is mostly unchanged. Does not feel short of breath. Pain in her sacrum is severe, not better or worse with anything. No radiation. REVIEW OF SYSTEMS: Eye: no change in vision ENT: no sore throat Cardiac: no chest pain or syncope Pulmonary: HPI Abdomen: no vomiting, diarrhea, abdominal pain Musculoskeletal: HPI Skin: no rash Neuro: no headache Constitutional: no fever : Chronic catheter, HPI A comprehensive 10 point review of systems is otherwise negative aside from elements mentioned in the history of present illness. PAST MEDICAL HISTORY: Includes MS, DVT, Clostridium difficile, indwelling catheter. COPD. Social history: Here with her youngest daughter General Appearance: Alert and conversant, cooperative. Eyes: No scleral icterus. ENT, Mouth: Normal mucous membranes. Respiratory: Bilateral rhonchi and some wheezing, no rales, breath sounds equal , nothing focal. Cardiovascular: Regular rate and rhythm. Gastrointestinal: Abdomen is soft and non tender. Neurological: Alert, face symmetric, she can move both feet and squeeze my hands but is generally weak in all 4 extremities which apparently is baseline. Skin: Sacral decubitus with a wound VAC. It is a little bit to the left of center and some surrounding erythema but no fluctuance. Musculoskeletal: No peripheral edema. Psychiatric: Not agitated. Emergency Department course/MDM: Urinalysis reviewed is positive for white blood cells and bacteria but also epithelial cells. White blood cell count is elevated here at 17,000, continues to rise. It certainly possible that she could have osteomyelitis with her sacral wound. 1440: Taty Gary. After discussion with hospitalist will treat with 1 dose IV ceftriaxone and send a urine culture. Dr. Sanabria will see her for the sacral wound, she has been treated by Dr. Campos, osteomyelitis still is a possibility. 4 mg morphine IV for increasing sacral pain. Pneumonia was considered, I think atelectasis more likely given the patient's difficulty changing position, her cough is at baseline, her respiratory symptoms are not different than usual. Smoking Status: Unknown if ever smoked Constitutional: Initial Vital Signs Temperature (C) 36.8 C 09/02/18 13:17 Heart Rate 91 09/02/18 13:17 Respiratory Rate 18 09/02/18 13:17 Blood Pressure 111/51 L 09/02/18 13:17 O2 Sat (%) 93 09/02/18 13:17 O2 Delivery Mode Nasal Cannula O2 (L/minute) 6 Allergies/Adverse Reactions: clindamycin [Clindamycin] Allergy (Severe, Verified 09/02/18 13:16) Abdominal Pain Sulfa (Sulfonamide Antibiotics) Allergy (Severe, Verified 09/02/18 13:16) Unknown Home Medications: Medication Instructions Recorded Polyethylene Glycol 3350 [Miralax 17 g PO BID 09/20/12 17 gm (*)] Cholecalciferol Vit D3 [Vitamin D3 50,000 unit PO Q30D 05/16/16 (*)] Furosemide [Lasix 20 MG (*)] 40 mg PO DAILY 05/16/16 Glatiramer Acetate [Copaxone] 20 mg SQ DAILY 07/15/17 DULoxetine [Cymbalta 30 MG (*)] 60 mg PO DAILY 01/13/18 Gabapentin [Neurontin Oral Liquid] 800 mg PO BID 01/13/18 Ibuprofen [Motrin (*)] 600 mg PO TID PRN 01/13/18 Nystatin Powder [Mycostatin Powder] 1 julien TP TID PRN 01/13/18 Potassium Cl [Klor-Con 20 meq (*)] 20 meq PO DAILY 01/13/18 Sennosides/Docusate Sodium 1 each PO BID 01/13/18 [Senna-S Tablet] Sodium Cl Nasal [[place] (*)] 1 spray NS QID PRN 01/13/18 fentaNYL [Duragesic 50 MCG Patch 50 mcg TD Q72H 01/13/18 (*)] oxyCODONE IR [Oxycodone Ir (*)] 7.5 mg PO TID PRN 01/13/18 morphINE SR [Ms Contin/Oramorph 15 15 mg PO BID #60 tab 01/15/18 mg (*)] Acetaminophen [Tylenol 325mg (*)] 650 mg PO Q4 PRN 07/27/18 Albuterol [Proventil Neb] 3 ml IH Q2 PRN 07/27/18 Baclofen [Baclofen 10 mg (*)] 10 mg PO Q6 PRN 07/27/18 Bisacodyl [Dulcolax] 10 mg RC HS PRN 07/27/18 Bisacodyl [Dulcolax] 10 mg RC Q3D@21 07/27/18 Calcium Carbonate [Tums 500MG (*)] 1,250 mg PO QID PRN 07/27/18 Dextran 70/Hypromellose 1 drop EACHEYE Q4 PRN 07/27/18 [Artificial Tears Eye Drops] Ipratropium/Albuterol [Duoneb (*)] 3 ml IH Q4 PRN 07/27/18 Magnesium Hydroxide [Milk of 30 ml PO DAILY PRN 07/27/18 Magnesia] Polyethylene Glycol 3350 [Miralax 17 gm PO DAILY PRN 07/27/18 17 gm (*)] Sodium Cl Nasal [[place] (*)] 1 spray NS BID 07/27/18 guaiFENesin/DEXTROMETHORPHAN 10 ml PO Q6 PRN 07/27/18 [Robitussin Dm Oral Liquid (*)] Acetic Acid Irr Soln 0.25% 30 ml IRR DAILY 09/02/18 Medical Decision Making - Diagnostics Imaging Results: Imaging Impressions Chest X-Ray 09/02/18 13:52 Impression: 1. Bronchitis/airways disease. 2. Left lower lobe pneumonia versus atelectasis. Imaging: I viewed and interpreted images myself Differential Diagnosis: Differential for leukocytosis considered including but not limited to UTI, pneumonia, sacral decubitus infection, osteomyelitis. - Data Points Laboratory Results: Laboratory Results 09/02/18 13:25 09/02/18 13:25 09/02/18 09/02/18 09/02/18 14:00 13:25 13:25 WBC 17.81 10^3/uL H 10^3/uL (3.80-9.50) RBC 3.49 10^6/uL L 10^6/uL (4.18-5.33) Hgb 11.0 g/dL L g/dL (12.6-16.3) Hct 32.6 % L % (38.0-47.0) MCV 93.4 fL fL (81.5-99.8) MCH 31.5 pg pg (27.9-34.1) MCHC 33.7 g/dL g/dL (32.4-36.7) RDW 12.7 % % (11.5-15.2) Plt Count 311 10^3/uL 10^3/uL (150-400) MPV 9.3 fL fL (8.7-11.7) Neut % (Auto) 85.4 % H % (39.3-74.2) Lymph % (Auto) 8.9 % L % (15.0-45.0) Bond % (Auto) 4.0 % L % (4.5-13.0) Eos % (Auto) 1.1 % % (0.6-7.6) Baso % (Auto) 0.2 % L % (0.3-1.7) Nucleat RBC Rel Count 0.0 % % (0.0-0.2) Absolute Neuts (auto) 15.19 10^3/uL H 10^3/uL (1.70-6.50) Absolute Lymphs (auto) 1.59 10^3/uL 10^3/uL (1.00-3.00) Absolute Monos (auto) 0.71 10^3/uL 10^3/uL (0.30-0.80) Absolute Eos (auto) 0.20 10^3/uL 10^3/uL (0.03-0.40) Absolute Basos (auto) 0.04 10^3/uL 10^3/uL (0.02-0.10) Absolute Nucleated RBC 0.00 10^3/uL 10^3/uL (0-0.01) Immature Gran % 0.4 % % (0.0-1.1) Immature Gran # 0.08 10^3/uL 10^3/uL (0.00-0.10) Sodium 136 mEq/L mEq/L (135-145) Potassium 3.9 mEq/L mEq/L (3.3-5.0) Chloride 96 mEq/L L mEq/L (97-110) Carbon Dioxide 31 mEq/l mEq/l (22-31) Anion Gap 9 mEq/L mEq/L (6-14) BUN 12 mg/dL mg/dL (7-23) Creatinine 0.7 mg/dL mg/dL (0.6-1.0) Estimated GFR > 60 Glucose 125 mg/dL H mg/dL (70-100) Calcium 9.3 mg/dL mg/dL (8.5-10.4) Urine Color YELLOW Urine Appearance TURBID Urine pH 8.0 H (5.0-7.5) Ur Specific [place] 1.010 (1.002-1.030) Urine Protein 1+ H (NEGATIVE) Urine Ketones NEGATIVE (NEGATIVE) Urine Blood 1+ H (NEGATIVE) Urine Nitrate POSITIVE H (NEGATIVE) Urine Bilirubin NEGATIVE (NEGATIVE) Urine Urobilinogen NEGATIVE EU EU (0.2-1.0) Ur Leukocyte Esterase 3+ H (NEGATIVE) Urine RBC 50-182 /hpf H /hpf (0-3) Urine WBC 50-182 /hpf H /hpf (0-3) Ur Epithelial Cells 4+ /lpf H /lpf (NONE-1+) Urine Bacteria 4+ /hpf H /hpf (NONE SEEN) Urine Mucus 2+ /lpf H /lpf (NONE-1+) Urine Glucose NEGATIVE (NEGATIVE) Medications Given: Azithromycin (Zithromax) 500 mg PO DAILY RIGOBERTO PRN Reason: Protocol Stop: 10/02/18 17:14 Last Admin: 09/02/18 17:55 Dose: 500 mg Sodium Chloride (Ns) 1,000 mls @ 75 mls/hr IV CONT RIGOBERTO Stop: 09/04/18 06:19 Last Admin: 09/02/18 17:55 Dose: 1,000 mls Discontinued Medications Ceftriaxone Sodium/Dextrose (Rocephin 1 Gm (Premix)) 50 mls @ 100 mls/hr IV EDNOW ONE PRN Reason: Protocol Stop: 09/02/18 15:12 Last Admin: 09/02/18 15:25 Dose: 50 mls Morphine Sulfate (Morphine) 4 mg IVP EDNOW ONE Stop: 09/02/18 14:42 Last Admin: 09/02/18 14:43 Dose: 4 mg Departure - Departure Disposition: [facility] Acute Clinical Impression: Pyuria, Multiple sclerosis Sacral decubitus ulcer Qualifiers: Pressure injury stage: unspecified pressure injury stage Qualified Code(s): L89.159 - Pressure ulcer of sacral region, unspecified stage Leukocytosis Qualifiers: Leukocytosis type: unspecified Qualified Code(s): D72.829 - Elevated white blood cell count, unspecified Condition: Fair
[2018-09-02 14:23] LABS: PLATELET COUNT 311 10^3/uL (150-400)
[2018-09-02] MEDS ORDERED: ONDANSETRON 4 MG/2 ML VIAL IVP PRN (16:54)
[2018-09-02] MEDS ORDERED: ACETAMINOPHEN 325 MG TAB PO PRN (16:54)
[2018-09-02] MEDS ORDERED: ONDANSETRON DISINTEGRATING 4 MG TAB PO PRN (16:54)
--- NOTE | 2018-09-02 17:35 | GHP ---
DATE OF ADMISSION: 09/02/2018 CHIEF COMPLAINT: Elevated white blood cell count and increasing lethargy. HISTORY OF PRESENT ILLNESS: This is a 78-year-old female with a history of multiple sclerosis who is essentially bed-bound. She was admitted to the hospital in late July for a worsening left buttoc k decubitus ulcer, which was debrided at that time. 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 She was not treated with antibiotics at that time. S he also had C diff colitis. Apparently, over the last several days, she has had increasing lethargy. Labs were obtained, although I do not have access to them, which were showing a slowly increasing l eukocytosis. She was then sent here because of the white blood cell count of 15. The patient is a p oor historian, though she denies any worsening pain. She denies any fevers or chills. REVIEW OF SYSTEMS: Limited review of systems obtained. Pertinent positives and negatives in the HPI . PAST MEDICAL HISTORY: 1. Advanced multiple sclerosis. 2. Chronic left ischial decubitus wound status post debridement during last hospitalization. 3. Chronic pain on chronic narcotics. 4. Recent diagnosis of C diff status post 14 days of oral vancomycin. 5. Chronic suprapubic catheter due to neurogenic bladder. 6. History of DVT. 7. History of MRSA bacteremia in 2009. MEDICATIONS: Reviewed. SOCIAL HISTORY: Lives a [facility] facility. FAMILY HISTORY: Positive for cancer. PHYSICAL EXAM: VITAL SIGNS: Afebrile, blood pressure is 106/59, heart rate 86, oxygen saturation 92 % on 4 L. GENERAL: Patient is chronically ill appearing. In no apparent distress. HEENT: [place] jesus sclerae. EOMs are intact. Slightly dry mucous membranes. NECK: Supple. No thyromegaly. LUNG S: Fair effort. Clear to auscultation anteriorly. CARDIOVASCULAR: Regular rate and rhythm. ABDOM EN: Positive bowel sounds. Soft, nontender, nondistended. No hepatosplenomegaly. EXTREMITIES: No clubbing, cyanosis, or edema. BACK: Wound VAC in place currently, but there is no surrounding eryt barrett. NEUROLOGIC: Alert and oriented x3. PSYCHIATRIC: Normal affect. LABORATORY DATA: White blood cell count 17, hemoglobin 11, platelets are 311. Chemistries: Normal. UA is grossly pyuric. Chest x-ray shows possible left lower lobe opacity. ASSESSMENT: This is a 78-year-old female presenting with increasing leukocytosis of uncertain etiolo gy. PLAN: 1. Leukocytosis: Difficult to pinpoint etiology at this point. She is not having any diarrhea to s uggest recurrence of Clostridium difficile, although we will start treating her with oral vancomycin. She will probably be on antibiotics. She does have significant pyuria, but she is chronically colo nized with multiple bacteria in her urine. She does have this left ischial decubitus ulcer which horne s not look grossly infected, at least to the surrounding area to me at this point. However, Surgery will see the patient. Her x-ray also is suggesting possible left lower lobe pneumonia. She is not e ndorsing a lot of symptoms though. She was started on ceftriaxone by the emergency department. I am going to continue this for a community-acquired pneumonia and add azithromycin. We will recheck a c hest x-ray in the morning. Surgery will evaluate the wound to see if this may be the cause or the so urce of infection. We may need to get Infectious Disease to see the patient as well. 2. History of recent Clostridium difficile colitis. We will start oral vancomycin, along with antib iotics. 3. Left ischial decubitus wound. Wound care. Continue wound vacuum-assisted closure. Surgery will see the patient. 4. History of multiple sclerosis. This is pretty advanced. /[id number]/MODL
[2018-09-02] MEDS: AZITHROMYCIN 250 MG TAB PO SCH (17:55)
[2018-09-02] MEDS: NS 1,000 ML IV SCH (17:55)
[2018-09-02] MEDS ORDERED: BISACODYL 10 MG SUPP PR PRN (19:06)
[2018-09-02] MEDS ORDERED: GUAIFENESIN/DM 10 ML UDCUP PO PRN (19:06)
[2018-09-02] MEDS ORDERED: MAGNESIUM HYDROXIDE 30 ML UDCUP PO PRN (19:06)
[2018-09-02] MEDS ORDERED: POLYETHYLENE GLYCOL 3350 17 GM PKT PO PRN (19:06)
[2018-09-02] MEDS ORDERED: TEARS/DEXTRAN 70/HYPROMELLOSE 15 ML OPHT.BTL EACHEYE PRN (19:06)
[2018-09-02] MEDS ORDERED: ALBUTEROL 3 ML DEYVIAL IH PRN (19:06)
[2018-09-02] MEDS ORDERED: IPRATROPIUM/ALBUTEROL 3 ML DEYVIAL IH PRN (19:06)
[2018-09-02] MEDS ORDERED: SODIUM CL NASAL 45 ML BTL NS PRN (19:06)
--- NOTE | 2018-09-02 21:45 | SOAPPROG ---
SOAP Progress Note Assessment/Plan: Assessment: 78 FEMALE ADMITTED WITH THE DEHYDRATION AN LEUKOCYTOSIS. SHE DOES HAVE SIGNIFICANT MS SHE IS LARGELY BEDRIDDEN AND HAS A ischial DECUBITUS WHICH IS BEING TREATED WITH WOUND VAC WBC IS 17 K BUT SHE IS AFEBRILE SHE DOES HAVE Pyuria BUT HAS A INDWELLING SUPRAPUBIC CATHETER MAY NEED DECUBITUS DEBRIDEMENT Plan: WOUND EVAL WITH THE WOUND VAC OFF IN THE A.M. 09/02/18 21:43 09/03/18 16:00 Objective: Vital Signs Temp Pulse Resp BP Pulse Ox 36.6 C 88 22 H 145/71 H 92 09/02/18 20:00 09/02/18 20:00 09/02/18 20:00 09/02/18 20:00 09/02/18 20:00 09/01/18 09/02/18 09/03/18 05:59 05:59 05:59 Intake Total 100 Balance 100 ICD10 Worksheet Patient Problems: Problems Problem Status Onset Leukocytosis Acute Multiple sclerosis Acute Pyuria Acute Sacral decubitus ulcer Acute Infection due to resistant organism Active Acute confusion Acute Acute lower urinary tract infection Acute Bilateral tibial fractures Acute ESBL (extended spectrum beta-lactamase) producing bacteria infection Acute 04/18 Fecal impaction Acute Fever Acute Pneumonia Acute Sepsis Acute Urinary tract infection Acute
[2018-09-02] MEDS: SENNOSIDES/DOCUSATE SODIUM TAB PO SCH (23:03)
[2018-09-02] MEDS: morphINE SR 15 MG TAB PO SCH (23:03)
[2018-09-02] MEDS: POLYETHYLENE GLYCOL 3350 17 GM PKT PO SCH (23:03)
[2018-09-02] MEDS: BISACODYL 10 MG SUPP PR SCH (23:03)
[2018-09-02] MEDS: GABAPENTIN 250 MG/5 ML 30 ML BOTTLE PO SCH (23:05)
[2018-09-02] MEDS: SODIUM CL NASAL 45 ML BTL NS SCH (23:10)
[2018-09-02] MEDS: fentaNYL 50 MCG PATCH TD SCH (23:20)
[2018-09-03] MEDS: oxyCODONE IR 5 MG TAB PO PRN ×3 (02:07→21:30)
[2018-09-03 04:47] LABS: PLATELET COUNT 258 10^3/uL (150-400)
[2018-09-03] MEDS: NS 1,000 ML IV SCH (06:11)
[2018-09-03] MEDS ORDERED: ENOXAPARIN 30 MG/0.3 ML SYR SC SCH (09:00)
[2018-09-03] MEDS: morphINE SR 15 MG TAB PO SCH ×2 (09:30→21:22)
[2018-09-03] MEDS: POTASSIUM CL 20 MEQ TAB PO SCH (09:30)
[2018-09-03] MEDS: DULoxetine 30 MG CAP PO SCH (09:30)
[2018-09-03] MEDS: AZITHROMYCIN 250 MG TAB PO SCH (09:30)
[2018-09-03] MEDS: SENNOSIDES/DOCUSATE SODIUM TAB PO SCH ×2 (09:30→21:29)
[2018-09-03] MEDS: FUROSEMIDE 20 MG TAB PO SCH (09:30)
[2018-09-03] MEDS: SODIUM CL NASAL 45 ML BTL NS SCH ×2 (09:31→21:33)
[2018-09-03] MEDS: GABAPENTIN 250 MG/5 ML 30 ML BOTTLE PO SCH ×2 (09:40→22:04)
[2018-09-03] MEDS: ENOXAPARIN 40 MG/0.4 ML SYR SC SCH (10:24)
[2018-09-03] MEDS: ACETIC ACID IRR SOLN 0.25% 1,000 ML BTL IRR SCH (10:24)
[2018-09-03] MEDS: POLYETHYLENE GLYCOL 3350 17 GM PKT PO SCH ×2 (10:24→21:32)
[2018-09-03] MEDS: Glatiramer Acetate [Copaxone] 20 MG SQ SCH (10:27)
--- NOTE | 2018-09-03 14:23 | PDMN ---
Medical Necessity Medical necessity: MCG MGSIC Systemic or Infectious Condition: 78 yo presents w / leukocytosis unknown etiology, poss LLL CAP. Surgery to eval chronic ischial decub w/ recent debridement, may need further debridement, IV antibxs started, IVF for dehydration, monitor labs, BC pending. PT/OT evals and wound care consult ordered. Anticipate >2MN for ongoing diagnostic testing, monitoring and tx of above given advanced age and comorbidities. Hx advanced MS, chronic left ischial decub s/p debridement las hospitalization (within last 30 day), chronic pain, recent cdiff w/ sepsis, chronic suprapubic cath for neurogenic bladder, DVT, MRSA bacteremia
--- NOTE | 2018-09-03 15:04 | SOAPPROG ---
SOAP Progress Note Assessment/Plan: Assessment: 78 FEMALE ADMITTED WITH THE DEHYDRATION AN LEUKOCYTOSIS. SHE DOES HAVE SIGNIFICANT MS SHE IS LARGELY BEDRIDDEN AND HAS A SACRAL DECUBITUS WHICH IS BEING TREATED WITH WOUND VAC WBC IS 17 K BUT SHE IS AFEBRILE SHE DOES HAVE PIE AREA BUT HAS A INDWELLING SUPRAPUBIC CATHETER MAY NEED DECUBITUS DEBRIDEMENT Plan: WOUND EVAL WITH THE WOUND VAC OFF IN THE A.M. 09/02/18 21:43 09/03/18 15:03 MORE ALERT TODAY/AFEBRILE/NO REAL COMPLAINTS WBC 13 K/PYURIA WOUND VAC SITE INTACT WITH NO EVIDENCE OF INFECTION Objective: Vital Signs Temp Pulse Resp BP Pulse Ox 36.8 C 93 16 106/60 95 09/03/18 14:49 09/03/18 14:49 09/03/18 14:49 09/03/18 14:49 09/03/18 14:49 Laboratory Results 09/03/18 03:51 09/03/18 03:51 09/02/18 09/03/18 09/04/18 05:59 05:59 05:59 Intake Total 1258 Output Total 250 Balance 1008 ICD10 Worksheet Patient Problems: Problems Problem Status Onset Leukocytosis Acute Multiple sclerosis Acute Pyuria Acute Sacral decubitus ulcer Acute Infection due to resistant organism Active Acute confusion Acute Acute lower urinary tract infection Acute Bilateral tibial fractures Acute ESBL (extended spectrum beta-lactamase) producing bacteria infection Acute 04/18 Fecal impaction Acute Fever Acute Pneumonia Acute Sepsis Acute Urinary tract infection Acute
--- NOTE | 2018-09-03 15:18 | HOSPPROG ---
Hospitalist Progress Note Assessment/Plan: * Leukocytosis -unclear source of infection - Pneumonia vs. UTI vs. sacral decub -doubt UTI with chronic colonization of supra-pubic catheter -wound vac to be taken down tomorrow to eval wound -on empiric abx for possible pulmonary source -IV ceftriaxone + azithro * Advanced MS -NS resident -continue Copaxone * COPD with chronic respiratory failure - 4L baseline * Neurogenic bladder with chronic suprapubic catheter * Sacral decub -wound vac - consult wound RN * Recent Cdiff -empiric PO Vanco while on abx * ESBL colonization -isolation * Continuous narcotic dependency -home meds Subjective: c/o severe leg pain Objective: Vital Signs Temp Pulse Resp BP Pulse Ox 36.8 C 93 16 106/60 95 09/03/18 14:49 09/03/18 14:49 09/03/18 14:49 09/03/18 14:49 09/03/18 14:49 Laboratory Results 09/03/18 03:51 09/03/18 03:51 09/02/18 09/03/18 09/04/18 05:59 05:59 05:59 Intake Total 1258 Output Total 250 Balance 1008 cxr viewed - my personal interpretation is - minimal infiltrate US legs - no DVT - Physical Exam Constitutional: no apparent distress, appears nourished, not in pain Cardiovascular: regular rate and rhythym, no murmur, rub, or gallop Respiratory: no respiratory distress, no rales or rhonchi, clear to auscultation Gastrointestinal: normoactive bowel sounds, soft, non-tender abdomen, no palpable masses Skin: no rashes or abrasions, no fluctuance, no induration Neurologic: AAOx3, weakness, No facial droop Psychiatric: interacting appropriately, not anxious, not encephalopathic, thought process linear ICD10 Worksheet Patient Problems: Problems Problem Status Onset Bilateral tibial fractures Acute Fever Acute Acute confusion Acute Urinary tract infection Acute Sepsis Acute Sacral decubitus ulcer Acute Pyuria Acute Leukocytosis Acute Multiple sclerosis Acute Acute lower urinary tract infection Acute Infection due to resistant organism Active Fecal impaction Acute Pneumonia Acute ESBL (extended spectrum beta-lactamase) producing bacteria infection Acute 04/18
--- NOTE | 2018-09-03 21:03 | ASMTCMCOM ---
CM Note CM Note Notes: Reviewed chart, spoke with CHRISTINE Leblanc. Pt admitted for a sacral decubitus, increasing lethargy and leukocytosis. History includes recent Cdiff, MRSA, multiple sclerosis, chronic pain, chronic decubitus. Pt is a resident at [facility] in [place]. She lives in skilled care and is private pay. Her dghtr Jessica is her MDPOA and her dghtr Mercy is also involved in her care. She has 4 children. The pt was admitted with a wound vac from [facility]. Call placed to [facility] , at the request to Dr. Lai. Spoke with CHRISTINE Beavers at [facility]. Pt is a DNR with a no CPR directive. Per Ruthann, the pt can intermittently feed herself at baseline and utitizes a large motorchair. Per Ruthann, [facility] is able to accept pt back when pt is medically stable for discharge. Call received from pt's dghtr Jessica. Jessica reports pt has been receiving wound care from [facility] (CHRISTINE Wood) at [facility]. Jessica states she has received several calls from Nina this week recommending pt transfer to an LTAC for more intensive care. Jessica believes there may an issue between Nina and [facility]. Jessica also seemed offended by suggestion that pt transfer to an LTAC. CM attempted to explain Nina's potential concerns and reasons for the recommendation to an LTAC. Encouraged Jessica to hold off on making any decisions regarding pt's discharge plan until the surgeon has a chance to evaluate the pt's wound on Tuesday09/04/18. Encouraged Jessica to call CM on Tuesday for an update and to further discuss plan. CM will continue to follow. Discharge Plan: To be determined Date Signed: 09/03/2018 09:02 PM Electronically Signed By:Vale Nair RN
[2018-09-03] MEDS: IBUPROFEN 200 MG TAB PO PRN (21:20)
[2018-09-03] MEDS: VANCOMYCIN 125 MG/2.5 ML UDL PO SCH (21:22)
[2018-09-03] MEDS: BACLOFEN 10 MG TAB PO PRN (21:32)
[2018-09-04 04:45] LABS: PLATELET COUNT 265 10^3/uL (150-400)
[2018-09-04] MEDS: VANCOMYCIN 125 MG/2.5 ML UDL PO SCH ×2 (09:01→23:14)
[2018-09-04] MEDS: DULoxetine 30 MG CAP PO SCH (09:01)
[2018-09-04] MEDS: AZITHROMYCIN 250 MG TAB PO SCH (09:01)
[2018-09-04] MEDS: POTASSIUM CL 20 MEQ TAB PO SCH (09:01)
[2018-09-04] MEDS: oxyCODONE IR 5 MG TAB PO PRN ×2 (09:02→16:05)
[2018-09-04] MEDS: ACETAMINOPHEN 325 MG TAB PO PRN (09:02)
[2018-09-04] MEDS: BACLOFEN 10 MG TAB PO PRN (09:02)
[2018-09-04] MEDS: FUROSEMIDE 20 MG TAB PO SCH (09:03)
[2018-09-04] MEDS: morphINE SR 15 MG TAB PO SCH ×2 (09:03→23:15)
[2018-09-04] MEDS: ENOXAPARIN 40 MG/0.4 ML SYR SC SCH (09:03)
[2018-09-04] MEDS: SENNOSIDES/DOCUSATE SODIUM TAB PO SCH ×2 (09:03→23:15)
[2018-09-04] MEDS: GABAPENTIN 250 MG/5 ML 30 ML BOTTLE PO SCH ×2 (09:04→23:15)
[2018-09-04] MEDS: POLYETHYLENE GLYCOL 3350 17 GM PKT PO SCH ×2 (09:04→23:14)
[2018-09-04] MEDS: ACETIC ACID IRR SOLN 0.25% 1,000 ML BTL IRR SCH (09:20)
[2018-09-04] MEDS: SODIUM CL NASAL 45 ML BTL NS SCH ×2 (09:21→23:16)
[2018-09-04] MEDS: Glatiramer Acetate [Copaxone] 20 MG SQ SCH (09:56)
--- NOTE | 2018-09-04 10:40 | SOAPPROG ---
SOAP Progress Note Assessment/Plan: Assessment: 78 y/o F with MS admitted with dehydration and leukocytosis. Also with sacral decubitus ulcer S: Pain in L buttock wound. O: Alert Afebrile WBC normal today No increased WOB Sacral wound: exposed bone present, necrotic subcutaneous tissue superficially. Wound is 3cm deep. Slight surrounding erythema. Plan: Pt will need further debridement in the OR. Will plan for later today or tomorrow. 09/04/18 10:36 Objective: Vital Signs Temp Pulse Resp BP Pulse Ox 36.5 C 65 18 95/53 L 96 09/04/18 08:34 09/04/18 08:34 09/04/18 08:34 09/04/18 08:34 09/04/18 08:34 Laboratory Results 09/04/18 03:22 09/03/18 03:51 09/03/18 09/04/18 09/05/18 05:59 05:59 05:59 Intake Total 1258 1450 Output Total 250 850 Balance 1008 600 ICD10 Worksheet Patient Problems: Problems Problem Status Onset Leukocytosis Acute Multiple sclerosis Acute Pyuria Acute Sacral decubitus ulcer Acute Infection due to resistant organism Active Acute confusion Acute Acute lower urinary tract infection Acute Bilateral tibial fractures Acute ESBL (extended spectrum beta-lactamase) producing bacteria infection Acute 04/18 Fecal impaction Acute Fever Acute Pneumonia Acute Sepsis Acute Urinary tract infection Acute
[2018-09-04] MEDS ORDERED: D5W 1,000 ML IV SCH (13:30)
--- NOTE | 2018-09-04 18:24 | HOSPPROG ---
Hospitalist Progress Note Assessment/Plan: * Sepsis - suspect sacral decub as source of infection -leukocytosis + tachycardia + resp failure as signs of sepsis -stage IV wound to bone with odor/necrotic tissue suggestive of infection -to OR today for debridement with Dr. Sanabria -d/w Dr. Hooks - leukocytosis improving on IV ceftriaxone - continue * Advanced MS -NS resident -continue Copaxone * COPD with chronic respiratory failure - 4L baseline * Neurogenic bladder with chronic suprapubic catheter -suspect positive urine culture is colonization * Sacral decub - stage IV to bone -wound vac taken off today - debridement planned * Recent Cdiff -empiric PO Vanco while on abx * ESBL colonization -isolation * Continuous narcotic dependency -home meds Subjective: severe pain in sacrum - she is hopeful surgery will help Objective: Vital Signs Temp Pulse Resp BP Pulse Ox 36.5 C 76 16 104/60 96 09/04/18 15:59 09/04/18 15:59 09/04/18 15:59 09/04/18 15:59 09/04/18 15:59 Laboratory Results 09/04/18 03:22 09/03/18 03:51 09/03/18 09/04/18 09/05/18 05:59 05:59 05:59 Intake Total 1258 1450 970 Output Total 250 850 250 Balance 1008 600 720 - Physical Exam Constitutional: no apparent distress, appears nourished, not in pain Cardiovascular: regular rate and rhythym, no murmur, rub, or gallop Respiratory: no respiratory distress, no rales or rhonchi, clear to auscultation Gastrointestinal: normoactive bowel sounds, soft, non-tender abdomen, no palpable masses Skin: no rashes or abrasions, no fluctuance, no induration Neurologic: AAOx3, sensation intact bilaterally Psychiatric: interacting appropriately, not anxious, not encephalopathic, thought process linear ICD10 Worksheet Patient Problems: Problems Problem Status Onset Bilateral tibial fractures Acute Fever Acute Acute confusion Acute Urinary tract infection Acute Sepsis Acute Sacral decubitus ulcer Acute Pyuria Acute Leukocytosis Acute Multiple sclerosis Acute Acute lower urinary tract infection Acute Infection due to resistant organism Active Fecal impaction Acute Pneumonia Acute ESBL (extended spectrum beta-lactamase) producing bacteria infection Acute 04/18
[2018-09-04] MEDS ORDERED: LR 1,000 ML IV ONE (18:28)
--- NOTE | 2018-09-04 19:06 | GCON ---
INFECTIOUS DISEASES CONSULTATION DATE OF CONSULTATION: 09/04/2018 REFERRING PHYSICIAN: Tamiko Lai MD REASON FOR CONSULTATION: Leukocytosis. HISTORY OF PRESENT ILLNESS: The patient is a 78-year-old female with a recent past medical history o f C difficile colitis, as well as chronic colonization with ESBL-producing E coli, whom I am asked to see in consultation for leukocytosis. The patient was admitted on 09/02/2018, with leukocytosis and noted increase in lethargy. She has a prior history of multiple sclerosis and remains bed-bound. S he does have a chronic wound over the left ischial region, which was debrided in early August by Dr Nedra Campos. At that time, the wound was noted to be 3 x 3 x 2 cm, with small amount of bone exposed at the base. She has subsequently been receiving care with a wound VAC. The patient notes she has a co ugh present, but this has been chronic. She has an indwelling suprapubic catheter with chronic colon ization by urine culture. She does not note any active diarrhea. She did not complain of fever or c hills. At time of presentation, patient's white blood cell count was noted to be elevated at 17.8, w ith a left shift. This has now decreased to 9.0 while on ceftriaxone daily. The patient will underg o debridement of her left ischial decubitus ulceration later today. This was noted by the Surgical S ervice to have exposed bone present with some necrotic subcutaneous tissue superficially with the wou nd depth being 3 cm. Currently, the patient is without other significant complaints. Given the abov e findings, I am now asked to assist in her ongoing management. PAST MEDICAL HISTORY: Multiple sclerosis, chronic left ischial decubitus ulceration, chronic pain, C difficile colitis with positive PCR specimen being obtained on 07/27/2018, history of ESBL E coli co lonization, MRSA bacteremia in 2009, depression, DVT, chronic aspiration. PAST SURGICAL HISTORY: Decubitus ulcer as above, suprapubic catheter as above, ovarian cystectomy. CURRENT MEDICATIONS: Ceftriaxone 1 g IV daily, Proventil nebs as needed, DuoNeb as needed, baclofen 10 mg q.6 hours as needed, Cymbalta 60 mg p.o. daily, Lovenox 40 mg subcu daily, Duragesic 50 mcg pat ch apply q.72 hours, Lasix 40 mg p.o. daily, Neurontin 800 mg p.o. b.i.d., Copaxone 20 mg subcu daily , MS Contin 15 mg p.o. b.i.d., potassium chloride 20 mEq p.o. daily, vancomycin 125 mg p.o. b.i.d. ALLERGIES: Clindamycin and sulfonamides, with reactions not further characterized by patient today. SOCIAL HISTORY: The patient is a resident of a [facility] facility. No tobacco or alcohol use. FAMILY HISTORY: Cannot be obtained today. REVIEW OF SYSTEMS: Outside that noted in the HPI, remainder of a 10-system review is unremarkable or unobtainable. PHYSICAL EXAMINATION: VITAL SIGNS: Temperature 36.5, heart rate 76, respiratory rate 16, blood pres sure 104/60, oxygen saturation 96% on 2 L. GENERAL: Patient is in no acute distress. She appears n ontoxic. HEENT: There is no scleral icterus, conjunctival injection, or conjunctival petechiae. Th e oropharynx is clear, without lesions. Mucous membranes are moist. NECK: Supple, without lymphade nopathy or thyromegaly. CHEST: Clear to auscultation anterolaterally, without adventitious sounds. The respiratory effort is normal. There is no cough present. CARDIOVASCULAR: Regular rate and rhy thm, without murmurs noted. ABDOMEN: Soft, mildly distended, nontender. Suprapubic catheter is in place with a small amount of mucus present, but no surrounding erythema. MUSCULOSKELETAL: Wound VAC is in place over left ischial decubitus ulceration. There is no surrounding erythema or induration. NEUROLOGIC: Patient is alert and interacts appropriately with the examiner. SKIN: See musculoske letal exam for details. No stigmata of endocarditis. Skin is warm and dry to touch. LYMPHATICS: N o cervical or supraclavicular nodes. LABORATORY DATA: White blood cell count 9.1, hematocrit 27.9, platelets 265, neutrophils 69%, lympho cytes 20%. Serum creatinine 0.7, AST 18, ALT 15, bilirubin 0.4, alkaline phosphatase 120, albumin 2. 8. Urinalysis has 50-182 white blood cells and 50-182 red blood cells, as well as 4+ epithelial cell s and 4+ bacteria. Blood cultures x2 sets are no growth. Urine culture shows a lactose fermenting a nd non-lactose fermenting gram-negative allyson, as well as a Proteus species; patient has known coloniza tion with ESBL E coli as recent as 07/27/2018; she also had evidence of Pseudomonas at that point in time. Chest x-ray shows question of hazy right middle lung base. IMPRESSION: 1. Leukocytosis: Unclear etiology for patient's leukocytosis with considerations being decubitus ul cer infection, although this was not described as being overtly infected, but will require debridemen t versus aspiration pneumonia. Doubt secondary to urinary tract infection given patient has chronic colonization and no other symptomatology. She has responded to ceftriaxone with normalization of whi te blood cell count. Will continue with ceftriaxone given this clinical response, recognizing this w ill not be active against either extended-spectrum [id number] Escherichia coli or Pseud omonas. 2. History of Clostridium difficile: Agree with continued suppressive b.i.d. vancomycin. RECOMMENDATIONS: 1. Continue ceftriaxone pending clinical course. 2. Continue vancomycin 125 mg orally twice daily. 3. Agree with plans for debridement of decubitus ulceration. 4. Follow clinical response to above measures over time. 5. Thank you for this consultation. We will continue to follow the patient with you. /[id number]/MODL
--- NOTE | 2018-09-04 19:19 | PDANEPAE ---
ANE History of Present Illness Sacral decubitus Early sepsis ANE Past Medical History - Cardiovascular History Hx Hypertension: No Hx Arrhythmias: No Hx Chest Pain: No Hx Coronary Artery / Peripheral Vascular Disease: No Hx CHF / Valvular Disease: No Hx Palpitations: No - Pulmonary History Hx COPD: Yes Hx Oxygen in Use at Home: Yes O2 in Use at Home (L/minute): 4 Hx Sleep Apnea: No Sleep Apnea Screening Result - Last Documented: Positive - Neurologic History Neurologic History Comment: chronic MS-severe - Endocrine History Hx Diabetes: No Hypothyroid: No Hyperthyroid: No - Chronic Pain History Chronic Pain: Yes (fentnyl patch) ANE Review of Systems Review of Systems: - Exercise capacity METS (RN): 2 METS ANE Patient History - Allergies Allergies/Adverse Reactions: clindamycin [Clindamycin] Allergy (Severe, Verified 09/02/18 13:16) Abdominal Pain Sulfa (Sulfonamide Antibiotics) Allergy (Severe, Verified 09/02/18 13:16) Unknown - Home Medications Home medications: home medication list seen and reviewed Home Medications: Polyethylene Glycol 3350 [Miralax 17 gm (*)] 17 g PO BID 09/20/12 [Last Taken ] Cholecalciferol Vit D3 [Vitamin D3 (*)] 50,000 unit PO Q30D 05/16/16 [Last Taken 07/10/17] Furosemide [Lasix 20 MG (*)] 40 mg PO DAILY 05/16/16 [Last Taken 07/15/17] Glatiramer Acetate [Copaxone] 20 mg SQ DAILY 07/15/17 [Last Taken 07/15/17] DULoxetine [Cymbalta 30 MG (*)] 60 mg PO DAILY 01/13/18 [Last Taken Unknown] Gabapentin [Neurontin Oral Liquid] 800 mg PO BID 01/13/18 [Last Taken Unknown] Ibuprofen [Motrin (*)] 600 mg PO TID PRN 01/13/18 [Last Taken Unknown] Nystatin Powder [Mycostatin Powder] 1 julien TP TID PRN 01/13/18 [Last Taken Unknown] Potassium Cl [Klor-Con 20 meq (*)] 20 meq PO DAILY 01/13/18 [Last Taken Unknown] Sennosides/Docusate Sodium [Senna-S Tablet] 1 each PO BID 01/13/18 [Last Taken Unknown] Sodium Cl Nasal [[place] (*)] 1 spray NS QID PRN 01/13/18 [Last Taken Unknown] fentaNYL [Duragesic 50 MCG Patch (*)] 50 mcg TD Q72H 01/13/18 [Last Taken Unknown] oxyCODONE IR [Oxycodone Ir (*)] 7.5 mg PO TID PRN 01/13/18 [Last Taken Unknown] Acetaminophen [Tylenol 325mg (*)] 650 mg PO Q4 PRN 07/27/18 [Last Taken Unknown] Albuterol [Proventil Neb] 3 ml IH Q2 PRN 07/27/18 [Last Taken Unknown] Baclofen [Baclofen 10 mg (*)] 10 mg PO Q6 PRN 07/27/18 [Last Taken Unknown] Bisacodyl [Dulcolax] 10 mg RC HS PRN 07/27/18 [Last Taken Unknown] Bisacodyl [Dulcolax] 10 mg RC Q3D@21 07/27/18 [Last Taken Unknown] Calcium Carbonate [Tums 500MG (*)] 1,250 mg PO QID PRN 07/27/18 [Last Taken Unknown] Dextran 70/Hypromellose [Artificial Tears Eye Drops] 1 drop EACHEYE Q4 PRN 07/27 [Last Taken Unknown] Ipratropium/Albuterol [Duoneb (*)] 3 ml IH Q4 PRN 07/27/18 [Last Taken Unknown] Magnesium Hydroxide [Milk of Magnesia] 30 ml PO DAILY PRN 07/27/18 [Last Taken Unknown] Polyethylene Glycol 3350 [Miralax 17 gm (*)] 17 gm PO DAILY PRN 07/27/18 [Last Taken Unknown] Sodium Cl Nasal [[place] (*)] 1 spray NS BID 07/27/18 [Last Taken Unknown] guaiFENesin/DEXTROMETHORPHAN [Robitussin Dm Oral Liquid (*)] 10 ml PO Q6 PRN [Last Taken Unknown] Acetic Acid Irr Soln 0.25% 30 ml IRR DAILY 09/02/18 [Last Taken Unknown] - NPO status NPO Status: no food or drink >8 hours NPO Since - Liquids (Date): 09/04/18 NPO Since - Liquids (Time): 10:00 NPO Since - Solids (Date): 09/04/18 NPO Since - Solids (Time): 10:00 - Anes Hx Anes Hx: no prior problems, post operative nausea - Smoking Hx Smoking Status: Unknown if ever smoked ANE Labs/Vital Signs - Labs Result Diagrams: 09/04/18 03:22 09/03/18 03:51 - Vital Signs Blood Pressure: 104/60 Heart Rate: 76 Respiratory Rate: 16 O2 Sat (%): 96 Height: 157.48 cm Weight: 58.967 kg ANE Physical Exam - Airway Neck exam: decreased ROM Mouth exam: poor dentition - Pulmonary Pulmonary: reduced air movement - Cardiovascular Cardiovascular: regular rate and rhythym - ASA Status ASA Status: III ANE Anesthesia Plan Anesthesia Plan: GA w LMA
[2018-09-04] MEDS ORDERED: BUPIVACAINE 0.5% 30 ML SDV ONE (19:40)
[2018-09-04] MEDS ORDERED: PROPOFOL 200 MG/20 ML VIAL ONE ×2 (20:01→20:02)
[2018-09-04] MEDS ORDERED: fentaNYL 100 MCG/2 ML INJ ONE ×2 (20:01)
[2018-09-04] MEDS ORDERED: ONDANSETRON 4 MG/2 ML VIAL IVP PRN (20:56)
[2018-09-04] MEDS ORDERED: NALOXONE HCL 0.4 MG/ML INJ IVP PRN (20:56)
[2018-09-04] MEDS ORDERED: HYDROmorphONE/DILAUDID 2 MG/ML INJ IVP PRN (20:56)
[2018-09-04] MEDS ORDERED: fentaNYL 100 MCG/2 ML INJ IVP PRN (20:56)
--- NOTE | 2018-09-04 22:54 | POSTOPPROG ---
Post Op Note Date of Operation: 09/04/18 Surgeon: Don Sanabria Anesthesiologist: MARGUERITE Anesthesia: GET(General Endotracheal) Pre-op Diagnosis: LEFT ISCHIAL DECUBITUS Post-op Diagnosis: SAME Indication: INFECTION POSSIBLE OSTEO Procedure: ISCHIAL DECUBITUS DEBRIDEMENT AND SAUCERIZATION OF THE ISCHIUM Findings: FULL-THICKNESS DECUBITUS WITH BONE EXPOSURE, NO DEFINITE OSTEO Inf/Abcess present in the surg proc area at time of surgery?: Yes Depth: Deep Incisional (Fascial) EBL: Minimal Complications: NONE Drains: Wound Vac Specimen(s): ISCHIAL BONE IN NECROTIC TISSUE
--- NOTE | 2018-09-04 23:36 | POSTANESTH ---
Post Anesthetic Evaluation Cardiovascular Status: Similar to Pre-Op Cond Respiratory Status: Similar to Pre-op Cond. Level of Consciousness/Mental Status: Can Participate in Eval Pain Control: Adequate, Prn Tx Ordered Nausea/Vomiting Control: Adequate, Prn Tx Ordered Complications Possibly Related to Anesthesia: None Noted
[2018-09-05] MEDS: oxyCODONE IR 5 MG TAB PO PRN ×2 (04:28→14:10)
[2018-09-05] MEDS: BACLOFEN 10 MG TAB PO PRN (04:28)
[2018-09-05] MEDS: ACETAMINOPHEN 325 MG TAB PO PRN (04:29)
--- NOTE | 2018-09-05 08:11 | SOAPPROG ---
SOAP Progress Note Assessment/Plan: Assessment/Plan: 78 Y F c MS, hx cdif, decubitus ulcer, admitted c fever. s/p debridement of stage IV left buttock decubitus ulcer c saucerization of bone. Ischial bone and necrotic tissue sent for culture and pathology. Continue vac to suction. Plan for change tomorrow. S: no complaints, was just sleeping O: alert, nad no wob vac to suction 09/05/18 08:12 Objective: Vital Signs Temp Pulse Resp BP Pulse Ox 36.8 C 87 19 110/62 95 09/05/18 03:00 09/05/18 03:00 09/05/18 03:00 09/05/18 03:00 09/05/18 03:00 Microbiology 09/04/18 21:09 Gram Stain - Final Pelvis - Tissue 09/04/18 21:09 Gram Stain - Final Pelvis - Bone Laboratory Results 09/04/18 03:22 09/03/18 03:51 09/04/18 09/05/18 09/06/18 05:59 05:59 05:59 Intake Total 1450 1420 Output Total 850 1150 Balance 600 270 ICD10 Worksheet Patient Problems: Problems Problem Status Onset Leukocytosis Acute Multiple sclerosis Acute Pyuria Acute Sacral decubitus ulcer Acute Infection due to resistant organism Active Acute confusion Acute Acute lower urinary tract infection Acute Bilateral tibial fractures Acute ESBL (extended spectrum beta-lactamase) producing bacteria infection Acute 04/18 Fecal impaction Acute Fever Acute Pneumonia Acute Sepsis Acute Urinary tract infection Acute
[2018-09-05] MEDS: GABAPENTIN 250 MG/5 ML 30 ML BOTTLE PO SCH ×2 (08:32→23:53)
[2018-09-05] MEDS: FUROSEMIDE 20 MG TAB PO SCH (08:32)
[2018-09-05] MEDS: SODIUM CL NASAL 45 ML BTL NS SCH ×2 (08:32→22:10)
[2018-09-05] MEDS: SENNOSIDES/DOCUSATE SODIUM TAB PO SCH ×2 (08:33→21:44)
[2018-09-05] MEDS: ACETIC ACID IRR SOLN 0.25% 1,000 ML BTL IRR SCH (08:33)
[2018-09-05] MEDS: VANCOMYCIN 125 MG/2.5 ML UDL PO SCH ×2 (08:33→21:45)
[2018-09-05] MEDS: morphINE SR 15 MG TAB PO SCH ×2 (08:33→21:44)
[2018-09-05] MEDS: POLYETHYLENE GLYCOL 3350 17 GM PKT PO SCH ×2 (08:33→21:45)
[2018-09-05] MEDS: DULoxetine 30 MG CAP PO SCH (08:33)
[2018-09-05] MEDS: POTASSIUM CL 20 MEQ TAB PO SCH (08:33)
--- NOTE | 2018-09-05 10:41 | PCMIDPN ---
Assessment/Plan: #Leukocytosis: normalized yesterday. Blood cx neg; doubt urine. Awaiting w/u of chr pressure ulcer --will leave on ceftriaxone for now until sort out pressure ulcer # Chronic sacral decubitus s/p debridement yesterday without off obvious clinical osteo. Tissue and bone cultures were sent. Gram stain of bone was negative for organisms --hopefully tomorrow i can be present for wound vac change # Bacteruria # H/o ESBL colonization 07/2018 : contact precautions # H/o Cdiff: continue suppressive vancomycin PO micro 09/02 blood cx (2) NGTD 09/04 sacral tissue: 3+ GPC 09/04 sacral bone: no org; no PMNs 09/02 UCx polymicrobial meds Ceftriaxone 1gm IV daily #3 vancomycin 125mg PO BID Subjective: c/o low back pain s/p surgery Objective: Vital Signs Temp Pulse Resp BP Pulse Ox 36.6 C 80 16 109/57 L 91 L 09/05/18 08:23 09/05/18 08:23 09/05/18 08:23 09/05/18 08:23 09/05/18 08:23 Microbiology 09/04/18 21:09 Gram Stain - Final Pelvis - Tissue 09/04/18 21:09 Gram Stain - Final Pelvis - Bone Laboratory Results 09/04/18 03:22 09/03/18 03:51 09/04/18 09/05/18 09/06/18 05:59 05:59 05:59 Intake Total 1450 1420 Output Total 850 1150 Balance 600 270 Gen: Chr ill appearing woman no distress HEENT: MMM CV: RRR Chest: shallow inspiration but no crackles or wheezes Abd: Protuberant, soft NT Ext: trace edema; muscular wasting and contractures PIV c/d/i - Time Spent With Patient Time Spent with Patient: greater than 25 minutes Time Spent with Patient: Greater than 25 minutes spent on this patients care, greater than 50% of time spent counseling, educating, and coordinating care regarding the above mentioned plan. ICD10 Worksheet Patient Problems: Problems Problem Status Onset Leukocytosis Acute Multiple sclerosis Acute Pyuria Acute Sacral decubitus ulcer Acute Infection due to resistant organism Active Acute confusion Acute Acute lower urinary tract infection Acute Bilateral tibial fractures Acute ESBL (extended spectrum beta-lactamase) producing bacteria infection Acute 04/18 Fecal impaction Acute Fever Acute Pneumonia Acute Sepsis Acute Urinary tract infection Acute
[2018-09-05] MEDS: Glatiramer Acetate [Copaxone] 20 MG SQ SCH (14:28)
--- NOTE | 2018-09-05 17:15 | HOSPPROG ---
Hospitalist Progress Note Assessment/Plan: 78yo F with advanced MS here with mild sepsis likely related to sacral decub. This is my first encounter with patient, chart reviewed. 1. Stage IV ischial debub - present on admission - s/p debridement 09/04 w/Dr Sanabria - no osteo - wound vac in place, plan for change tomorrow - wound gram stain without organisms, awaiting culture results - continue IV ceftriaxone, ID following 2. Sepsis: Physiology resolved. - follow blood cultures 3. Advanced MS - lives at [facility] ensuring she is getting adequate care there for her extensive needs - continue Copaxone 4. Neurogenic bladder with chronic suprapubic catheter - suspect + urine culture is colonization 5. H/o C diff colitis - empiric PO vanco while on abx 6. H/o ESBL - isolation precautions 7. Chronic narcotic dependency - home MS contin, on oxycodone PRN for breakthrough 8. COPD with chronic respiratory insufficiency: on 4L VTE ppx: LMWH Code: DNR Dispo: Remain inpatient, unsafe for discharge home at this time Subjective: Slept most of morning. More pain with movements in wound and legs. Objective: Vital Signs Temp Pulse Resp BP Pulse Ox 36.7 C 85 16 101/57 L 97 09/05/18 15:12 09/05/18 15:12 09/05/18 15:12 09/05/18 15:12 09/05/18 15:12 Microbiology 09/04/18 21:09 Mycobacterial Smear (BEENA) - Final Pelvis - Tissue 09/04/18 21:09 Mycobacterial Smear (BEENA) - Final Pelvis - Bone 09/04/18 21:09 Gram Stain - Final Pelvis - Tissue 09/04/18 21:09 Gram Stain - Final Pelvis - Bone Laboratory Results 09/04/18 03:22 09/03/18 03:51 09/04/18 09/05/18 09/06/18 05:59 05:59 05:59 Intake Total 1450 1420 440 Output Total 850 1150 550 Balance 600 270 -110 - Physical Exam Constitutional: no apparent distress, appears nourished, not in pain Eyes: PERRL, anicteric sclera, EOMI Ears, Nose, Mouth, Throat: moist mucous membranes, hearing normal, ears appear normal, no oral mucosal ulcers Cardiovascular: regular rate and rhythym, systolic murmur, No edema Respiratory: other (clear anterolaterally) Gastrointestinal: normoactive bowel sounds, soft, non-tender abdomen, no palpable masses Genitourinary: other (suprapubic catheter) Skin: other (did not visualized decub ulcer today) Musculoskeletal: other (chronic changes c/w MS) Neurologic: AAOx3 Psychiatric: not encephalopathic ICD10 Worksheet Patient Problems: Problems Problem Status Onset Leukocytosis Acute Multiple sclerosis Acute Pyuria Acute Sacral decubitus ulcer Acute Infection due to resistant organism Active Acute confusion Acute Acute lower urinary tract infection Acute Bilateral tibial fractures Acute ESBL (extended spectrum beta-lactamase) producing bacteria infection Acute 04/18 Fecal impaction Acute Fever Acute Pneumonia Acute Sepsis Acute Urinary tract infection Acute
[2018-09-05] MEDS: BISACODYL 10 MG SUPP PR SCH (21:45)
[2018-09-05] MEDS: fentaNYL 50 MCG PATCH TD SCH (21:45)
[2018-09-06] MEDS: oxyCODONE IR 5 MG TAB PO PRN ×3 (00:25→16:03)
--- NOTE | 2018-09-06 08:56 | PCMIDPN ---
Assessment/Plan: # Chronic sacral decubitus s/p debridement yesterday without obvious clinical osteo but bone growing rare Proteus today. Bone path still pending. Exam today showed 3 x 3.5 x 4cm wound with small amount slough at base, thin layer of tissue over bone. No surrounding cellulitis --continue ceftriaxone for now, follow-up on susceptibilities of Proteus --in light of increasing concern for OM with positive bone culture for Proteus, will increase dose of ceftriaxone to 2gm . Tissue cultures also showing Enterococcus. I am less concerned of pathogens tissue culture due to lack of of soft tissue infection on exam. --await path of bone to help sort out degree of concern for osteomyelitis # H/o ESBL colonization 07/2018 : contact precautions # H/o Cdiff: continue suppressive vancomycin PO micro 09/02 blood cx (2) NGTD 09/04 sacral tissue: 3+ GPC; Cx Proteus, Enterococcus and another gram-negative allyson 09/04 sacral bone: no org; no PMNs: Culture rare Proteus 09/02 UCx polymicrobial meds Ceftriaxone 1gm IV daily #4 vancomycin 125mg PO BID Subjective: Patient complaining of pain relating to wound VAC change. Objective: Vital Signs Temp Pulse Resp BP Pulse Ox 36.6 C 84 17 105/51 L 95 09/06/18 04:00 09/06/18 04:00 09/06/18 04:00 09/06/18 04:00 09/06/18 04:00 Microbiology 09/04/18 21:09 Gram Stain - Final Pelvis - Bone 09/04/18 21:09 Mycobacterial Smear (BEENA) - Final Pelvis - Bone 09/04/18 21:09 Gram Stain - Final Pelvis - Tissue 09/04/18 21:09 Mycobacterial Smear (BEENA) - Final Pelvis - Tissue Laboratory Results 09/04/18 03:22 09/03/18 03:51 09/05/18 09/06/18 09/07/18 05:59 05:59 05:59 Intake Total 1420 1490 Output Total 1150 1275 Balance 270 215 - Physical Exam General Appearance: alert, no apparent distress, obese EENT: No scleral icterus Respiratory: crackles (Bilateral bases), No accessory muscle use Neck: supple Cardiac/Chest: regular rate, rhythm Abdomen: non-tender, soft Back: other (Left buttock wound: 3 x 3.5 x 4cm wound with small amount slough at base, thin layer of tissue over bone. No surrounding cellulitis ) Skin: No rash Neuro/Psych: alert, normal mood/affect, oriented x 3 - Time Spent With Patient Time Spent with Patient: greater than 35 minutes (care coordinated with surgical team) Time Spent with Patient: Greater than 35 minutes spent on this patients care, greater than 50% of time spent counseling, educating, and coordinating care regarding the above mentioned plan. ICD10 Worksheet Patient Problems: Problems Problem Status Onset Leukocytosis Acute Multiple sclerosis Acute Pyuria Acute Sacral decubitus ulcer Acute Infection due to resistant organism Active Acute confusion Acute Acute lower urinary tract infection Acute Bilateral tibial fractures Acute ESBL (extended spectrum beta-lactamase) producing bacteria infection Acute 04/18 Fecal impaction Acute Fever Acute Pneumonia Acute Sepsis Acute Urinary tract infection Acute
[2018-09-06] MEDS: DULoxetine 30 MG CAP PO SCH (09:06)
[2018-09-06] MEDS: SENNOSIDES/DOCUSATE SODIUM TAB PO SCH ×2 (09:06→22:11)
[2018-09-06] MEDS: FUROSEMIDE 40 MG TAB PO SCH (09:06)
[2018-09-06] MEDS: IBUPROFEN 200 MG TAB PO PRN (09:07)
[2018-09-06] MEDS: POTASSIUM CL 20 MEQ TAB PO SCH (09:07)
[2018-09-06] MEDS: morphINE SR 15 MG TAB PO SCH ×2 (09:08→22:11)
[2018-09-06] MEDS: ENOXAPARIN 40 MG/0.4 ML SYR SC SCH (09:09)
[2018-09-06] MEDS: VANCOMYCIN 125 MG/2.5 ML UDL PO SCH ×2 (09:09→22:07)
[2018-09-06] MEDS: POLYETHYLENE GLYCOL 3350 17 GM PKT PO SCH ×2 (09:10→22:01)
[2018-09-06] MEDS: ACETIC ACID IRR SOLN 0.25% 1,000 ML BTL IRR SCH (09:11)
[2018-09-06] MEDS: SODIUM CL NASAL 45 ML BTL NS SCH ×2 (09:11→22:14)
[2018-09-06] MEDS: Glatiramer Acetate [Copaxone] 20 MG SQ SCH (09:12)
[2018-09-06] MEDS: GABAPENTIN 250 MG/5 ML 30 ML BOTTLE PO SCH ×2 (10:09→22:08)
--- NOTE | 2018-09-06 10:58 | SOAPPROG ---
SOAP Progress Note Assessment/Plan: Assessment/Plan: 78 Y F c MS, hx cdif, decubitus ulcer, admitted c fever. s/p debridement of stage IV left buttock decubitus ulcer c saucerization of bone. Ischial bone and necrotic tissue sent for culture and pathology--bone growing proteus, and tissue c proteus and enterococcus. Appreciate ID input. Ceftriaxone dose increased. Vac changed today with myself and ID. Plan for vac change on Tuesday. Wound care notified. This wound could certainly be the source of her fever on admit. S: feeling "fair." vac change a little painful, but tolerated it quite well. O: alert, nad no wob ulcer with exposed bone, mixed granulation and thin slough. surrounding skin contracted and irritated but no erythema or malodor today (+malodor on Tuesday prior to surgery) 09/06/18 10:54 Objective: Vital Signs Temp Pulse Resp BP Pulse Ox 36.3 C 88 16 89/57 L 94 09/06/18 09:32 09/06/18 09:32 09/06/18 09:32 09/06/18 09:32 09/06/18 09:32 Microbiology 09/04/18 21:09 Gram Stain - Final Pelvis - Bone 09/04/18 21:09 Mycobacterial Smear (BEENA) - Final Pelvis - Bone 09/04/18 21:09 Gram Stain - Final Pelvis - Tissue 09/04/18 21:09 Mycobacterial Smear (BEENA) - Final Pelvis - Tissue Laboratory Results 09/04/18 03:22 09/03/18 03:51 09/05/18 09/06/18 09/07/18 05:59 05:59 05:59 Intake Total 1420 1490 Output Total 1150 1275 Balance 270 215 ICD10 Worksheet Patient Problems: Problems Problem Status Onset Leukocytosis Acute Multiple sclerosis Acute Pyuria Acute Sacral decubitus ulcer Acute Infection due to resistant organism Active Acute confusion Acute Acute lower urinary tract infection Acute Bilateral tibial fractures Acute ESBL (extended spectrum beta-lactamase) producing bacteria infection Acute 04/18 Fecal impaction Acute Fever Acute Pneumonia Acute Sepsis Acute Urinary tract infection Acute
--- NOTE | 2018-09-06 15:14 | ASMTCMCOM ---
CM Note CM Note Notes: 09/06/2018 Case Management Note Discussed with RN. Per RN Dr. Campos is recommending LTAC. Discussed with pt. Pt is concerned that her wound won't heal at [facility], but expresses concern about going to a new place, meeting new staff/caregivers, how long the stay will be and being further from her daughters who live in [place]. Pt agreeable to referral to [facility]. Faxed referral. Discussed taking the process slowly and meeting with Isaak to ask questions about [facility]. Phone call to [facility] at pt request. Left . Updated [facility] via allscipts and phone. Case Management d/c poc: to be determined SNF vs LTAC Case Management to follow Date Signed: 09/06/2018 03:13 PM Electronically Signed By:Anastasiia Isaacs RN
--- NOTE | 2018-09-06 15:47 | HOSPPROG ---
Hospitalist Progress Note Assessment/Plan: 78yo F with advanced MS here with mild sepsis likely related to sacral decub. 1. Stage IV ischial debub - present on admission - s/p debridement 09/04 w/Dr Sanabria - bone cx growing Proteus, wound cx growing Proteus and Enterococcus - in light of above cultures, ID increased CTX to 2g daily - wound vac in place, changed today 2. Sepsis: Physiology resolved. - follow blood cultures 3. Advanced MS - unable to obtain Copaxone while inpatient 4. Neurogenic bladder with chronic suprapubic catheter - suspect + urine culture is colonization 5. H/o C diff colitis - empiric PO vanco while on abx 6. H/o ESBL - isolation precautions 7. Chronic narcotic dependency - home MS contin, on oxycodone PRN for breakthrough 8. COPD with chronic respiratory insufficiency: on 4L VTE ppx: LMWH Code: DNR Dispo: Remain inpatient pending clinical course. Here at least through Tuesday. Discharge challenging. Dr Campos recommending LTAC, specifically [facility] in [place]. Patient is tearful and hesitant about this idea. CM discussed with daughter who is not yet on board. Concern that resources at [place] will not allow for adequate healing and that going back there would be futile. This will require ongoing discussion between CM, family, patient,medical teams. Subjective: Feeling fair. Had wound vac change earlier, pain mostly controlled. Objective: Vital Signs Temp Pulse Resp BP Pulse Ox 36.6 C 80 15 92/55 L 93 09/06/18 12:40 09/06/18 14:19 09/06/18 14:19 09/06/18 12:40 09/06/18 14:19 Microbiology 09/04/18 21:09 Gram Stain - Final Pelvis - Tissue 09/04/18 21:09 Gram Stain - Final Pelvis - Bone 09/04/18 21:09 Mycobacterial Smear (BEENA) - Final Pelvis - Bone 09/04/18 21:09 Mycobacterial Smear (BEENA) - Final Pelvis - Tissue Laboratory Results 09/04/18 03:22 09/03/18 03:51 09/05/18 09/06/18 09/07/18 05:59 05:59 05:59 Intake Total 1420 1490 Output Total 1150 1275 Balance 270 215 - Physical Exam Constitutional: no apparent distress, other (frail) Eyes: PERRL, anicteric sclera, EOMI Ears, Nose, Mouth, Throat: moist mucous membranes, hearing normal, ears appear normal, no oral mucosal ulcers Cardiovascular: regular rate and rhythym, no murmur, rub, or gallop, No edema Respiratory: no respiratory distress, clear to auscultation (anterolaterally) Gastrointestinal: normoactive bowel sounds, soft, non-tender abdomen, no palpable masses Genitourinary: other (suprapubic site c/d/i) Skin: warm, other (did not visualize ulcer) Musculoskeletal: other (changes c/w chronic advanced MS) Neurologic: AAOx3 Psychiatric: interacting appropriately ICD10 Worksheet Patient Problems: Problems Problem Status Onset Leukocytosis Acute Multiple sclerosis Acute Pyuria Acute Sacral decubitus ulcer Acute Infection due to resistant organism Active Acute confusion Acute Acute lower urinary tract infection Acute Bilateral tibial fractures Acute ESBL (extended spectrum beta-lactamase) producing bacteria infection Acute 04/18 Fecal impaction Acute Fever Acute Pneumonia Acute Sepsis Acute Urinary tract infection Acute
--- NOTE | 2018-09-06 17:00 | GOP ---
DATE OF OPERATION: 09/04/2018 SURGEON: Don Sanabria MD TRANSPORTATION COORDINATOR: FLYNN House ANESTHESIOLOGIST: Dr. Amirah Isaacs PREOPERATIVE DIAGNOSIS: Ischial decubitus. POSTOPERATIVE DIAGNOSIS: Ischial decubitus. PROCEDURE PERFORMED: Ischial decubitus debridement with saucerization of the ischium and placement o f wound vacuum-assisted closure. FINDINGS: Patient was found have necrotic decubitus ulceration, full thickness over the ischium with some exposed ischial bone, necrotic fascia, muscle, and subcutaneous tissue. DESCRIPTION OF PROCEDURE: The patient was taken to the operating room where she received satisfactor y general endotracheal anesthesia. She was placed in the right lateral decubitus position, prepped a nd draped in usual sterile fashion. An elliptical skin incision was made to excise muscle, subcutaneous tissue down to the fascial l evel. Hemostasis was obtained with electrocautery. The tissue over the ischium was necrotic and thi s was sharply debrided away or removed with a rongeur. Ischial bone was exposed and saucerized using the rongeur and then smoothed off with a rasp. Cultures were sent in, as well as histology. Hemostasis was obtained. As much necrotic tissue as visualized was removed, and the wound was dresse d with a wound VAC with white foam over the bone. She tolerated the procedure quite well. There wer e no complications. Blood loss negligible. /[id number]/MODL
[2018-09-07] MEDS: oxyCODONE IR 5 MG TAB PO PRN ×2 (02:42→09:22)
[2018-09-07] MEDS: IBUPROFEN 200 MG TAB PO PRN (06:38)
[2018-09-07] MEDS: ENOXAPARIN 40 MG/0.4 ML SYR SC SCH (09:20)
[2018-09-07] MEDS: VANCOMYCIN 125 MG/2.5 ML UDL PO SCH ×2 (09:20→20:24)
[2018-09-07] MEDS: DULoxetine 30 MG CAP PO SCH (09:21)
[2018-09-07] MEDS: FUROSEMIDE 40 MG TAB PO SCH (09:22)
[2018-09-07] MEDS: morphINE SR 15 MG TAB PO SCH ×2 (09:22→20:24)
[2018-09-07] MEDS: POTASSIUM CL 20 MEQ TAB PO SCH (09:23)
[2018-09-07] MEDS: GABAPENTIN 250 MG/5 ML 30 ML BOTTLE PO SCH ×2 (09:23→21:37)
[2018-09-07] MEDS: SENNOSIDES/DOCUSATE SODIUM TAB PO SCH ×2 (09:26→20:40)
[2018-09-07] MEDS: POLYETHYLENE GLYCOL 3350 17 GM PKT PO SCH ×2 (09:26→20:40)
[2018-09-07] MEDS: SODIUM CL NASAL 45 ML BTL NS SCH ×2 (09:27→21:51)
[2018-09-07] MEDS: Glatiramer Acetate [Copaxone] 20 MG SQ SCH (09:38)
--- NOTE | 2018-09-07 10:47 | SOAPPROG ---
SOAP Progress Note Assessment/Plan: Assessment: 78 FEMALE ADMITTED WITH THE DEHYDRATION AN LEUKOCYTOSIS. SHE DOES HAVE SIGNIFICANT MS SHE IS LARGELY BEDRIDDEN AND HAS A ischial DECUBITUS WHICH IS BEING TREATED WITH WOUND VAC WBC IS 17 K BUT SHE IS AFEBRILE SHE DOES HAVE Pyuria BUT HAS A INDWELLING SUPRAPUBIC CATHETER MAY NEED DECUBITUS DEBRIDEMENT Plan: WOUND EVAL WITH THE WOUND VAC OFF IN THE A.M. 09/02/18 21:43 09/03/18 16:00 09/07/18 10:45 ALERT, COOPERATIVE/ VAC IN PLACE AD FUCTIONING/ PATH AD CULTURES PENDING Objective: Vital Signs Temp Pulse Resp BP Pulse Ox 37.0 C 78 16 115/55 L 99 09/07/18 08:00 09/07/18 08:00 09/07/18 08:00 09/07/18 08:00 09/07/18 08:00 Microbiology 09/04/18 21:09 Gram Stain - Final Pelvis - Tissue 09/04/18 21:09 Gram Stain - Final Pelvis - Bone 09/04/18 21:09 Mycobacterial Smear (BEENA) - Final Pelvis - Bone 09/04/18 21:09 Mycobacterial Smear (BEENA) - Final Pelvis - Tissue Laboratory Results 09/04/18 03:22 09/03/18 03:51 09/06/18 09/07/18 09/08/18 05:59 05:59 05:59 Intake Total 1490 50 200 Output Total 1275 450 Balance 215 -400 200 ICD10 Worksheet Patient Problems: Problems Problem Status Onset Leukocytosis Acute Multiple sclerosis Acute Pyuria Acute Sacral decubitus ulcer Acute Infection due to resistant organism Active Acute confusion Acute Acute lower urinary tract infection Acute Bilateral tibial fractures Acute ESBL (extended spectrum beta-lactamase) producing bacteria infection Acute 04/18 Fecal impaction Acute Fever Acute Pneumonia Acute Sepsis Acute Urinary tract infection Acute
[2018-09-07] MEDS ORDERED: ALTEPLASE 2 MG VIAL IVP PRN (10:56)
--- NOTE | 2018-09-07 11:01 | PCMIDPN ---
Assessment/Plan: 1. 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 She will therefore need 6 weeks of IV antibiotics at the LTAC, along with meticulous wound care. Given location of wound, prefer Unasyn over ampicillin alone for additional anaerobic coverage. If bone ultimately grows ESBL E coli, could use imipenem monotherapy for all 3 organisms. Will order inflammatory markers to be drawn tomorrow morning after patient has PICC line in place. 2. History of C diff colitis: Continue suppressive vancomycin 125 mg twice daily. Over 25 min spent with this patient today. Subjective: Patient and her daughter are agreeable to going to an LTAC in [place]. She is without complaints today. Doing well. Objective: Ceftriaxone 2 g IV daily day 5 Vancomycin 125 mg p. O. Twice daily No fevers Vital Signs Temp Pulse Resp BP Pulse Ox 37.0 C 78 16 115/55 L 99 09/07/18 08:00 09/07/18 08:00 09/07/18 08:00 09/07/18 08:00 09/07/18 08:00 Microbiology 09/04/18 21:09 Gram Stain - Final Pelvis - Tissue 09/04/18 21:09 Gram Stain - Final Pelvis - Bone 09/04/18 21:09 Mycobacterial Smear (BEENA) - Final Pelvis - Bone 09/04/18 21:09 Mycobacterial Smear (BEENA) - Final Pelvis - Tissue Laboratory Results 09/04/18 03:22 09/03/18 03:51 09/06/18 09/07/18 09/08/18 05:59 05:59 05:59 Intake Total 1490 50 200 Output Total 1275 450 Balance 215 -400 200 "Pelvis bone"cultures growing Proteus mirabilis and enterococcus faecalis, both susceptible to ampicillin and ampicillin sulbactam Previous tissue culture with organisms as per the above as well as ESBL E coli - Physical Exam General Appearance: alert, no apparent distress EENT: No thrush Respiratory: lungs clear Extremities: other (Peripheral IV left arm looks fine) Abdomen: non-tender, soft Pelvic Exam: other (Suprapubic catheter in place) Skin: other (I did not turn her over to look at her wound VAC today), No rash ICD10 Worksheet Patient Problems: Problems Problem Status Onset Leukocytosis Acute Multiple sclerosis Acute Pyuria Acute Sacral decubitus ulcer Acute Infection due to resistant organism Active Acute confusion Acute Acute lower urinary tract infection Acute Bilateral tibial fractures Acute ESBL (extended spectrum beta-lactamase) producing bacteria infection Acute 04/18 Fecal impaction Acute Fever Acute Pneumonia Acute Sepsis Acute Urinary tract infection Acute
[2018-09-07] MEDS: AMPICILLIN/SULBACTAM 3 GM in NS 100 ML IV SCH ×2 (13:21→17:00)
[2018-09-07] MEDS: ACETIC ACID IRR SOLN 0.25% 1,000 ML BTL IRR SCH (13:34)
--- NOTE | 2018-09-07 13:58 | HOSPPROG ---
Hospitalist Progress Note Assessment/Plan: 78yo F with advanced MS here with mild sepsis likely related to sacral decub. 1. Stage IV ischial debub with concern for osteomyelitis - present on admission - s/p debridement 09/04 w/Dr Sanabria - bone cx growing Proteus and now Enterococcus - wound cx growing Proteus, Enterococcus, and rare ESBL E coli - in light of above cultures, ID switching antibiotics to IV unasyn. May switch to imipenem pending final ESBL result - needs PICC for 6 week course of abx - wound vac in place, plan for change tomorrow 2. Sepsis: Physiology resolved. - follow blood cultures, remain negative 3. Advanced MS - unable to obtain Copaxone while inpatient 4. Neurogenic bladder with chronic suprapubic catheter - suspect + urine culture is colonization 5. H/o C diff colitis - empiric PO vanco while on abx 6. H/o ESBL - isolation precautions 7. Chronic narcotic dependency - home MS contin, on oxycodone PRN for breakthrough 8. COPD with chronic respiratory insufficiency: on 4L VTE ppx: LMWH Code: DNR Dispo: Remain inpatient pending clinical course. Here at least through tomorrow. Medical and surgical teams recommending LTAC, specifically [facility]. CM made referral and they will evaluate today. Patient and daughter are both on board with this plan. Subjective: Sitting up working with speech therapy. In good spirits. Pain at buttock with movement. No fevers Objective: Vital Signs Temp Pulse Resp BP Pulse Ox 37.0 C 84 18 95/56 L 94 09/07/18 11:41 09/07/18 11:41 09/07/18 11:41 09/07/18 11:41 09/07/18 11:41 Microbiology 09/04/18 21:09 Gram Stain - Final Pelvis - Tissue 09/04/18 21:09 Mycobacterial Smear (BEENA) - Final Pelvis - Tissue 09/04/18 21:09 Gram Stain - Final Pelvis - Bone 09/04/18 21:09 Mycobacterial Smear (BEENA) - Final Pelvis - Bone Laboratory Results 09/04/18 03:22 09/03/18 03:51 09/06/18 09/07/18 09/08/18 05:59 05:59 05:59 Intake Total 1490 50 200 Output Total 1275 450 Balance 215 -400 200 - Physical Exam Constitutional: no apparent distress Eyes: PERRL, anicteric sclera, EOMI Ears, Nose, Mouth, Throat: moist mucous membranes, hearing normal, ears appear normal, no oral mucosal ulcers Cardiovascular: regular rate and rhythym, no murmur, rub, or gallop, No edema Respiratory: no respiratory distress, no rales or rhonchi, clear to auscultation Gastrointestinal: normoactive bowel sounds, soft, non-tender abdomen, no palpable masses Genitourinary: other (suprapubic cath c/d/i) Skin: no rashes or abrasions, no fluctuance, no induration Musculoskeletal: other (changes c/w chronic advanced MS) Neurologic: AAOx3 Psychiatric: interacting appropriately ICD10 Worksheet Patient Problems: Problems Problem Status Onset Leukocytosis Acute Multiple sclerosis Acute Pyuria Acute Sacral decubitus ulcer Acute Infection due to resistant organism Active Acute confusion Acute Acute lower urinary tract infection Acute Bilateral tibial fractures Acute ESBL (extended spectrum beta-lactamase) producing bacteria infection Acute 04/18 Fecal impaction Acute Fever Acute Pneumonia Acute Sepsis Acute Urinary tract infection Acute
--- NOTE | 2018-09-07 17:25 | ASMTCMCOM ---
CM Note CM Note Notes: Isaak from [facility] here to meet with pt, she is agreeable to going to LTAC. Dtr Jessica was notified and agrees to plan as well. CM notified , plan for dc tomorrow. Per Isaak, wound vac not needed. We should send pt with a wet to dry dressing so they can assess wound upon admission. DC Plan: [facility] Date Signed: 09/07/2018 05:25 PM Electronically Signed By:Tiffany Santos RN
[2018-09-08] MEDS: oxyCODONE IR 5 MG TAB PO PRN (00:07)
[2018-09-08] MEDS: AMPICILLIN/SULBACTAM 3 GM in NS 100 ML IV SCH ×4 (01:40→17:41)
[2018-09-08] MEDS: ENOXAPARIN 40 MG/0.4 ML SYR SC SCH (08:21)
[2018-09-08] MEDS: GABAPENTIN 250 MG/5 ML 30 ML BOTTLE PO SCH ×2 (08:21→21:43)
[2018-09-08] MEDS: SODIUM CL NASAL 45 ML BTL NS SCH ×2 (08:21→21:44)
[2018-09-08] MEDS: DULoxetine 30 MG CAP PO SCH (08:21)
[2018-09-08] MEDS: VANCOMYCIN 125 MG/2.5 ML UDL PO SCH ×2 (08:22→21:43)
[2018-09-08] MEDS: morphINE SR 15 MG TAB PO SCH ×2 (08:22→21:43)
[2018-09-08] MEDS: POTASSIUM CL 20 MEQ TAB PO SCH (08:22)
[2018-09-08] MEDS: FUROSEMIDE 40 MG TAB PO SCH (08:22)
[2018-09-08] MEDS: Glatiramer Acetate [Copaxone] 20 MG SQ SCH (08:22)
[2018-09-08] MEDS: POLYETHYLENE GLYCOL 3350 17 GM PKT PO SCH ×2 (08:23→22:18)
[2018-09-08] MEDS: ACETIC ACID IRR SOLN 0.25% 1,000 ML BTL IRR SCH (08:23)
[2018-09-08] MEDS: SENNOSIDES/DOCUSATE SODIUM TAB PO SCH ×2 (08:23→22:19)
--- NOTE | 2018-09-08 10:34 | PCMIDPN ---
Assessment/Plan: 1. 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 Regarding her antibiotics, the patient now has enterococcus raffinosus growing from the bone. (In addition to Proteus mirabilis and enterococcus faecalis) Per microbiology, susceptibilities should be back by tomorrow morning. Continue Unasyn as is pending susceptibilities of 2nd Enterococcus. Fungal cultures so far negative. Would prefer to keep patient here until final antibiotic decision made, which will likely be over the next 24 -48 hours. 2. History of C diff colitis: Continue suppressive vancomycin 125 mg twice daily. Subjective: In good spirits. No complaints. Discussed plans for tunneled PICC line and rationale behind that, and antibiotic issues with patient. All questions answered today. She understands that she will be transferred to the LTAC once final antibiotic decisions are made. Objective: Unasyn 3 g IV q.6 hours day 1 (previously received ceftriaxone 2 g IV daily x5 days) Vancomycin 125 mg p. O. Twice daily No fevers Vital Signs Temp Pulse Resp BP Pulse Ox 36.8 C 76 14 112/58 L 94 09/08/18 08:00 09/08/18 08:00 09/08/18 08:00 09/08/18 08:00 09/08/18 08:00 Microbiology 09/04/18 21:09 Gram Stain - Final Pelvis - Bone 09/02/18 14:58 Blood Culture - Final Blood 09/04/18 21:09 Gram Stain - Final Pelvis - Tissue 09/04/18 21:09 Mycobacterial Smear (BEENA) - Final Pelvis - Bone 09/04/18 21:09 Mycobacterial Smear (BEENA) - Final Pelvis - Tissue Laboratory Results 09/08/18 05:20 09/03/18 03:51 09/07/18 09/08/18 09/09/18 05:59 05:59 05:59 Intake Total 50 450 Output Total 450 1050 750 Balance -400 -600 -750 ESR 58 MM/HR (0-30) H 09/08/18 05:20 C-Reactive Protein 50.5 mg/L (<10.0) H 09/08/18 05:15 September 3rd: Bone cultures with rare Proteus mirabilis (Unasyn BEENA less than 1 /0.5), Enterococcus faecalis susceptible to ampicillin (BEENA 1), and Enterococcus raffinosus, susceptibilities pending Laboratory Tests 09/08/18 09/08/18 05:15 05:20 ESR 58 H C-Reactive Protein 50.5 H - Physical Exam General Appearance: alert, no apparent distress EENT: pharynx normal, other (False teeth uppers and lowers), No thrush Respiratory: other (Poor inspiratory effort, but lungs clear anterolaterally) Cardiac/Chest: regular rate, rhythm, other (Difficult to hear heart sounds) Abdomen: non-tender, soft Pelvic Exam: other (Suprapubic catheter in place) Back: other (Wound VAC in place) Skin: No rash ICD10 Worksheet Patient Problems: Problems Problem Status Onset Leukocytosis Acute Multiple sclerosis Acute Pyuria Acute Sacral decubitus ulcer Acute Infection due to resistant organism Active Acute confusion Acute Acute lower urinary tract infection Acute Bilateral tibial fractures Acute ESBL (extended spectrum beta-lactamase) producing bacteria infection Acute 04/18 Fecal impaction Acute Fever Acute Pneumonia Acute Sepsis Acute Urinary tract infection Acute
--- NOTE | 2018-09-08 10:40 | HOSPPROG ---
Hospitalist Progress Note Assessment/Plan: 78yo F with advanced MS here with mild sepsis likely related to sacral decub. 1. Stage IV ischial debub with concern for osteomyelitis - present on admission - s/p debridement 09/04 w/Dr Sanabria - bone cx growing Proteus and two species of Enterococcus - wound cx growing above and rare ESBL E coli - we are not currently treating for this as tissue was debrided - in light of above bone cultures, ID has her on IV unasyn. Awaiting susceptibilties, should have back tomorrow - IR to place tunneled PICC today - wound vac in place, change per surgery 2. Sepsis: Physiology resolved. - follow blood cultures, remain negative 3. Advanced MS - unable to obtain Copaxone while inpatient 4. Neurogenic bladder with chronic suprapubic catheter - suspect + urine culture is colonization 5. H/o C diff colitis - empiric PO vanco while on abx 6. H/o ESBL - isolation precautions 7. Chronic narcotic dependency - home MS contin, on oxycodone PRN for breakthrough 8. COPD with chronic respiratory insufficiency: on 4L VTE ppx: LMWH Code: DNR Dispo: Remain inpatient. Need to determine antibiotic selection (should have decision by tomorrow per ID/lab). Plan to discharge to LTAC in [place], anticipate tomorrow. Patient and daughter are both on board with this plan. Subjective: Unable to place PICC yesterday. Despite this, Marie is in good spirits this AM, smiling. No pain or fevers. Objective: Vital Signs Temp Pulse Resp BP Pulse Ox 36.8 C 76 14 112/58 L 94 09/08/18 08:00 09/08/18 08:00 09/08/18 08:00 09/08/18 08:00 09/08/18 08:00 Microbiology 09/04/18 21:09 Gram Stain - Final Pelvis - Bone 09/02/18 14:58 Blood Culture - Final Blood 09/04/18 21:09 Gram Stain - Final Pelvis - Tissue 09/04/18 21:09 Mycobacterial Smear (BEENA) - Final Pelvis - Bone 09/04/18 21:09 Mycobacterial Smear (BEENA) - Final Pelvis - Tissue Laboratory Results 09/08/18 05:20 09/03/18 03:51 09/07/18 09/08/18 09/09/18 05:59 05:59 05:59 Intake Total 50 450 Output Total 450 1050 750 Balance -400 600 750 - Physical Exam Constitutional: no apparent distress, appears nourished, not in pain Eyes: PERRL, anicteric sclera, EOMI Ears, Nose, Mouth, Throat: moist mucous membranes, hearing normal, ears appear normal, no oral mucosal ulcers Cardiovascular: regular rate and rhythym, no murmur, rub, or gallop, No edema Respiratory: no respiratory distress, no rales or rhonchi, clear to auscultation Gastrointestinal: normoactive bowel sounds, soft, non-tender abdomen, no palpable masses Genitourinary: other (chronic suprapubic cath) Skin: no rashes or abrasions, no fluctuance, no induration Musculoskeletal: other (changes c/w advanced MS) Neurologic: AAOx3 Psychiatric: interacting appropriately, not anxious, not encephalopathic, thought process linear ICD10 Worksheet Patient Problems: Problems Problem Status Onset Leukocytosis Acute Multiple sclerosis Acute Pyuria Acute Sacral decubitus ulcer Acute Infection due to resistant organism Active Acute confusion Acute Acute lower urinary tract infection Acute Bilateral tibial fractures Acute ESBL (extended spectrum beta-lactamase) producing bacteria infection Acute 04/18 Fecal impaction Acute Fever Acute Pneumonia Acute Sepsis Acute Urinary tract infection Acute
--- NOTE | 2018-09-08 10:54 | ASMTCMCOM ---
CM Note CM Note Notes: Spoke w/, pt not ready for dc, needs tunneled PICC and they are still working on finding the right abx for her. IRINEO updated Isaak at [facility] [phone] that pt may dc on Tuesday. Pt can go with a wet to dry dressing per Isaak. DC Plan: LTAC/ [facility] Date Signed: 09/08/2018 10:54 AM Electronically Signed By:Tiffany Snatos RN
[2018-09-08] MEDS ORDERED: ALTEPLASE 2 MG VIAL IVP PRN (11:39)
[2018-09-08] MEDS ORDERED: ONDANSETRON 4 MG/2 ML VIAL IVP ONE (13:40)
[2018-09-08] MEDS ORDERED: NALOXONE HCL 0.4 MG/ML INJ IVP PRN (13:40)
[2018-09-08] MEDS ORDERED: fentaNYL 100 MCG/2 ML INJ IVP PRN (13:40)
--- NOTE | 2018-09-08 13:51 | WOCRNPDOC ---
MANUEL Advanced Assessment Note - Skin Integrity Problem, Advanced Assess Left Buttock Pressure Injury Dressing Type: Black Vac Foam (1), White Vac Foam (1), Wound Vac Dressing Description: Clean/Dry, Intact Closure Description: Not Approximated Exudate Amount: Scant Exudate Color: Reddish/Yellow Exudate Characteristic(s): Serosanguinous Integumentary Issue Intervention: Dressing Changed Miley Wound Tissue: Blanching, Intact Wound Bed Color: [place], Yellow Wound Bed Constitution: Red/[place] - Non Granular Tissue, Subcutaneous Fat Wound Edges: Well Defined Site Measurement - Head-to-Toe Length X Width X Depth (cm): 3.5x3.1x3.4 Pressure Injury Stage: Stage 4 Pressure Injury Present on Admit: Yes Skin Integrity Problem Comment: Patient rolled to her right side with assist from CHRISTINE Chauhan. Wound vac removed. Wet to dry dressing placed in anticipation of patient DC to [facility]. Patient tolerated well. Wound care will place follow-up for patient next week in the event that she doesn't DC over weekend.
--- NOTE | 2018-09-08 15:27 | PDHPUP ---
History & Physical Update H&P update statement: This history and physical update is based on an assessment of the patient which was completed after admission or registration (within 24 hours), but prior to the surgery/procedure. Tunneled small bore CVC H&P update: H&P reviewed & patient examined, no change in patient's condition since H&P completed
--- NOTE | 2018-09-08 15:29 | PDRADPN ---
Radiology Procedure Note Date of Procedure: 09/08/18 Radiologist: Thaddeus Banegas Anesthesia: Other (Specify) (Fentanyl) Pre-op Diagnosis: Infection Post-op Diagnosis: Infection Indication: need for long distance operator central access for ABX Procedure: Tunneled small bore noncuffed CVC Finding(s): Patent left IJ. Tip of catheter placed in proximal right atrium. PLAN: This IJ Tunneled catheter functions the same as a peripheral PICC with decreased rate of infection, and is a vein-preserving alternative with no risk of arm vein thrombosis. The Tunneled noncuffed catheter may be removed at any time the same as any peripheral PICC with hemostasis achieved via manual compression followed by a sterile, occlusive dressing. Inf/Abcess present in the surg proc area at time of surgery?: No
--- NOTE | 2018-09-08 15:32 | SOAPPROG ---
SOAP Progress Note Assessment/Plan: Assessment: 78 y/o F with MS admitted with dehydration and leukocytosis. Sacral decubitus ulcer: S/p I&D with wound vac placement S: Pain in L buttock wound. Otherwise, no complaints O: Alert Afebrile No increased WOB Sacral wound: exposed bone present, necrotic subcutaneous tissue superficially. Wound is 3cm deep. Plan: Dispo: LTAC today or tomorrow after PICC placement. Will leave vac off and wet to dry dressing in place. Follow up in Dr. Sanabria' office in 1 week. 09/08/18 15:29 Objective: Vital Signs Temp Pulse Resp BP Pulse Ox 36.5 C 89 16 108/62 100 09/08/18 11:53 09/08/18 13:44 09/08/18 15:20 09/08/18 15:20 09/08/18 15:20 Microbiology 09/04/18 21:09 Gram Stain - Final Pelvis - Tissue 09/04/18 21:09 Gram Stain - Final Pelvis - Bone 09/04/18 21:09 Mycobacterial Smear (BEENA) - Final Pelvis - Bone 09/02/18 14:58 Blood Culture - Final Blood 09/04/18 21:09 Mycobacterial Smear (BEENA) - Final Pelvis - Tissue Laboratory Results 09/08/18 05:20 09/03/18 03:51 09/07/18 09/08/18 09/09/18 05:59 05:59 05:59 Intake Total 50 450 Output Total 450 1050 750 Balance -400 -600 -750 ICD10 Worksheet Patient Problems: Problems Problem Status Onset Leukocytosis Acute Multiple sclerosis Acute Pyuria Acute Sacral decubitus ulcer Acute Infection due to resistant organism Active Acute confusion Acute Acute lower urinary tract infection Acute Bilateral tibial fractures Acute ESBL (extended spectrum beta-lactamase) producing bacteria infection Acute 04/18 Fecal impaction Acute Fever Acute Pneumonia Acute Sepsis Acute Urinary tract infection Acute
[2018-09-08] MEDS: fentaNYL 50 MCG PATCH TD SCH (21:43)
[2018-09-08] MEDS: BISACODYL 10 MG SUPP PR SCH (22:18)
[2018-09-09] MEDS: AMPICILLIN/SULBACTAM 3 GM in NS 100 ML IV SCH ×3 (00:10→12:23)
[2018-09-09] MEDS: ENOXAPARIN 40 MG/0.4 ML SYR SC SCH (09:21)
[2018-09-09] MEDS: Glatiramer Acetate [Copaxone] 20 MG SQ SCH (09:21)
[2018-09-09] MEDS: POTASSIUM CL 20 MEQ TAB PO SCH (09:22)
[2018-09-09] MEDS: FUROSEMIDE 40 MG TAB PO SCH (09:22)
[2018-09-09] MEDS: GABAPENTIN 250 MG/5 ML 30 ML BOTTLE PO SCH (09:22)
[2018-09-09] MEDS: morphINE SR 15 MG TAB PO SCH (09:22)
[2018-09-09] MEDS: VANCOMYCIN 125 MG/2.5 ML UDL PO SCH (09:22)
[2018-09-09] MEDS: SODIUM CL NASAL 45 ML BTL NS SCH (09:22)
[2018-09-09] MEDS: DULoxetine 30 MG CAP PO SCH (09:22)
[2018-09-09] MEDS: ACETIC ACID IRR SOLN 0.25% 1,000 ML BTL IRR SCH (09:22)
[2018-09-09] MEDS: POLYETHYLENE GLYCOL 3350 17 GM PKT PO SCH (09:23)
[2018-09-09] MEDS: SENNOSIDES/DOCUSATE SODIUM TAB PO SCH (09:23)
--- NOTE | 2018-09-09 10:08 | PCMIDPN ---
Assessment/Plan: # Chronic sacral decubitus s/p debridement with bone cultures growing Proteus, Enterococcus faecalis, Enterococcus raffinosus, and bacteroides. Tissue cx also growing ESBL but do not feel significant pathogen as didn't grow from bone. --unable to get formal sensi in house for Enterococcus raffinosus therefore will send to [place]. Typically R to B lactams, therefore will start Vancomycin based on CrCl 40-50 @ vancomycin 1gm IV daily, will be due for trough before 4th dose on 09/12 --abx stop date 10/18/18 --in light of starting vancomycin today and last labs 09/08, will get stat labs before transfer. 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 Twice daily micro 09/02 blood cx (2) NGTD 09/04 sacral tissue: 3+ GPC; Cx Proteus, Enterococcus faecalis, ESBL E coli, fingoldia 09/04 sacral bone: no org; no PMNs: Proteus, Enterococcus faecalis, Enterococcus raffinosus, and bacteroides; no path sent 09/02 UCx polymicrobial meds Unasyn 3gm IV q6h vancomycin 125mg PO BID Subjective: No c/o no diarrhea, no BM x 24h no rash no pain ate breakfast w/o difficulty Objective: Vital Signs Temp Pulse Resp BP Pulse Ox 36.8 C 95 20 105/54 L 88 L 09/09/18 08:00 09/09/18 08:00 09/09/18 08:00 09/09/18 08:00 09/09/18 08:00 Microbiology 09/04/18 21:09 Gram Stain - Final Pelvis - Bone 09/04/18 21:09 Gram Stain - Final Pelvis - Tissue 09/04/18 21:09 Mycobacterial Smear (BEENA) - Final Pelvis - Bone 09/02/18 14:58 Blood Culture - Final Blood Laboratory Results 09/08/18 05:20 09/03/18 03:51 09/08/18 09/09/18 09/10/18 05:59 05:59 05:59 Intake Total 450 550 Output Total 1050 1650 Balance -600 -1100 ESR 58 MM/HR (0-30) H 09/08/18 05:20 C-Reactive Protein 50.5 mg/L (<10.0) H 09/08/18 05:15 09/08/18 09/09/18 09/09/18 05:15 10:10 10:10 WBC 5.65 Hct 28.2 L Plt Count 246 Neut % (Auto) 56.7 Lymph % (Auto) 28.1 Creatinine 0.6 AST 17 ALT 14 Alkaline Phosphatase 105 C-Reactive Protein 50.5 H Total Protein 6.0 L Albumin 2.7 L - Physical Exam General Appearance: alert, no apparent distress Respiratory: lungs clear, accessory muscle use Cardiac/Chest: regular rate, rhythm Skin: pallor, No rash Neuro/Psych: alert, normal mood/affect, oriented x 3 - Line/s other Lines: other (Tunnel PICC line left subclavian C/D/I) - Time Spent With Patient Time Spent with Patient: greater than 35 minutes Time Spent with Patient: Greater than 35 minutes spent on this patients care, greater than 50% of time spent counseling, educating, and coordinating care regarding the above mentioned plan. ICD10 Worksheet Patient Problems: Problems Problem Status Onset Leukocytosis Acute Multiple sclerosis Acute Pyuria Acute Sacral decubitus ulcer Acute Infection due to resistant organism Active Acute confusion Acute Acute lower urinary tract infection Acute Bilateral tibial fractures Acute ESBL (extended spectrum beta-lactamase) producing bacteria infection Acute 04/18 Fecal impaction Acute Fever Acute Pneumonia Acute Sepsis Acute Urinary tract infection Acute
[2018-09-09 10:21] LABS: PLATELET COUNT 246 10^3/uL (150-400)
[2018-09-09] MEDS ORDERED: VANCOMYCIN 1 GM in NS 250 ML IV SCH (10:30)
[2018-09-09] MEDS ORDERED: VANCOMYCIN HCL/NORMAL SALINE 250 ML IV SCH (10:30)
--- NOTE | 2018-09-09 10:39 | PDIAF ---
- Diagnosis Diagnosis: polymicrobial sacral OM Code Status: Do Not Resuscitate - Medication Management Penitentiary Antibiotics: Vancomycin 1gm IV daily; Unasyn 3gm IV [id number] Penitentiary Antibiotic Stop Date: 10/19/18 Additional Medication Instructions: Patient started on vancomycin 09/09/18 and is due for first trough 09/12/18. Unasyn dose adjusted for CrCl 40 on 09/09/18, dropped to 3gm every 8 hours Discharge Medications: electronically signed and located in the Home Medication List. PICC Care - Routine: Yes - Orders Isolation Type: Contact Isolation Diet Texture: Dysphagia 2 - Mechanically Altered - Chopped, Ground, Thin Liquids , Meds Whole in Puree - Labs/Radiology Call or Fax Lab and Imaging Results to: Monitoring per LTAC ID doctor. Sensi on Enterococcus raffinosus pending - Follow Up Care Current Providers and Referrals: Don Sanabria MD [Medical Doctor] - follow up in 1 week Patient,NotPresent [Primary Care Provider] - As per Instructions
[2018-09-09 11:27] VITALS: BP 93/50
[2018-09-09] MEDS: ACETAMINOPHEN 325 MG TAB PO PRN (11:47)
--- NOTE | 2018-09-09 12:17 | ASMTLACE ---
LACE Length of stay for Answers: 7-13 days current admission Acuity / Level of Answers: Yes Care: Did the patient have an inpatient admission? Comorbidities - select Answers: Chronic pulmonary disease all that apply Opioid dependence / Chronic pain Other Notes: MS; DVT # of Emergency department Answers: 1-2 visits in the last 6 months Score: 16 Date Signed: 09/09/2018 12:16 PM Electronically Signed By:Gayle Will
[2018-09-09] MEDS ORDERED: POTASSIUM Cl (KCl) 100 ML IV ONE (13:04)
[2018-09-09] MEDS ORDERED: MAGNESIUM SULF 1 GM/DEXTROSE 100 ML IV ONE (13:04)
--- NOTE | 2018-09-09 13:14 | ASDISCHSUM ---
Discharge Information Plan Status:LTAC Medically Cleared to Leave:09/08/2018 Discharge Date:09/09/2018 01:12 PM D/C Disposition:[facility] D/C Disposition:Rehab [facility] Projected Discharge Date:09/09/2018 01:00 PM Transportation at D/C:ALS/BLS Discharge Delay Reason: Follow-Up Date:09/09/2018 01:00 PM Discharge Slot: Final Diagnosis:Sacral Decubitus, Dementia Placement Information Referral Type:*Care Home/SNF Referral ID:[id number] Provider Name: Address 1: Phone Number: Address 2: Fax Number: City: Selection Factors: State: Referral Type:[facility] Referral ID:[id number] Provider Name:[facility] Term Address 1:[address] Address 2: City:[place] Selection Factors: State:[place] Patient Contact Information Contact Name:YARA Relationship:Daughter Address:[address] City:[place] Alternate Phone: [facility]/Zip Code:[place] [address] Email: Financial Information Financial Class:Medicare Primary Plan Desc:MEDICARE INPATIENT Primary Plan Number:[id number] Secondary Plan Desc:MED[place] Secondary Plan Number:[id number] Assessment Information LACE LACE Length of stay for Answers: 7-13 days current admission Acuity / Level of Answers: Yes Care: Did the patient have an inpatient admission? Comorbidities - select Answers: Chronic pulmonary disease all that apply Opioid dependence / Chronic pain Other Notes: MS; DVT # of Emergency department Answers: 1-2 visits in the last 6 months Score: 16 Date Signed: 09/09/2018 12:16 PM Electronically Signed By:Gayle Will [facility] Progress Note Note CM Note Notes: Reviewed chart, spoke with CHRISTINE Leblanc. Pt admitted for a sacral decubitus, increasing lethargy and leukocytosis. History includes recent Cdiff, MRSA, multiple sclerosis, chronic pain, chronic decubitus. Pt is a resident at [facility] in [place]. She lives in skilled care and is private pay. Her dghtr Jessica is her MDPOA and her dghtr Mercy is also involved in her care. She has 4 children. The pt was admitted with a wound vac from [facility]. Call placed to [facility] , at the request to Dr. Lai. Spoke with CHRISTINE Beavers at [facility]. Pt is a DNR with a no CPR directive. Per Ruthann, the pt can intermittently feed herself at baseline and utitizes a large motorchair. Per Ruthann, [facility] is able to accept pt back when pt is medically stable for discharge. Call received from pt's dghtr Jessica. Jessica reports pt has been receiving wound care from [facility] (CHRISTINE Wood) at [facility]. Jessica states she has received several calls from Nina this week recommending pt transfer to an LTAC for more intensive care. Jessica believes there may an issue between Nina and [facility]. Jessica also seemed offended by suggestion that pt transfer to an LTAC. CM attempted to explain Nina's potential concerns and reasons for the recommendation to an LTAC. Encouraged Jessica to hold off on making any decisions regarding pt's discharge plan until the surgeon has a chance to evaluate the pt's wound on Tuesday09/04/18. Encouraged Jessica to call CM on Tuesday for an update and to further discuss plan. CM will continue to follow. Discharge Plan: To be determined Date Signed: 09/03/2018 09:02 PM Electronically Signed By:Vale Nair RN [facility] CM Progress Note CM Note CM Note Notes: 09/06/2018 Case Management Note Discussed with RN. Per RN Dr. Campos is recommending LTAC. Discussed with pt. Pt is concerned that her wound won't heal at [facility], but expresses concern about going to a new place, meeting new staff/caregivers, how long the stay will be and being further from her daughters who live in [place]. Pt agreeable to referral to [facility]. Faxed referral. Discussed taking the process slowly and meeting with Isaak to ask questions about [facility]. Phone call to [facility] at pt request. Left VM. Updated [facility] via [facility] and phone. Case Management d/c poc: to be determined SNF vs LTAC Case Management to follow Date Signed: 09/06/2018 03:13 PM Electronically Signed By:Anastasiia Isaacs RN [facility] CM Progress Note CM Note CM Note Notes: Isaak from [facility] here to meet with pt, she is agreeable to going to LTAC. Dtr Jessica was notified and agrees to plan as well. CM notified , plan for dc tomorrow. Per Isaak, wound vac not needed. We should send pt with a wet to dry dressing so they can assess wound upon admission. DC Plan: [facility] Date Signed: 09/07/2018 05:25 PM Electronically Signed By:Tiffany Santos RN [facility] CM Progress Note CM Note CM Note Notes: Ezio w/, pt not ready for dc, needs tunneled PICC and they are still working on finding the right abx for her. CM updated Isaak at [facility] [phone] that pt may dc on Tuesday. Pt can go with a wet to dry dressing per Isaak. DC Plan: LTAC/ [facility] Date Signed: 09/08/2018 10:54 AM Electronically Signed By:Tiffany Santos RN Case Management Discharge Plan Note Case Management Discharge Discharge Order Complete? Answers: Yes Patient to Obtain Answers: Other Notes: LTAC Medications Transportation Arranged Answers: [facility] will Pick (Date 09/09/2018 01:00 PM & Time) Case Management Transport Answers: Yes Form Complete Faxed Final Orders Answers: Yes Agency/Facility Transfer Answers: Yes Report Printed & Faxed to Receiving Agency Family Notified Answers: Yes Notes: left message for angela Lopez Discharge Comments Notes: Pt to discharge today to [facility]. Message left for linda Lopez to call CM for update. RN and both given numbers to call report to hospital. No further CM needs noted at this time. Date Signed: 09/09/2018 01:13 PM Electronically Signed By:Gayle Will Intervention Information
--- NOTE | 2018-09-18 18:41 | GCON ---
DATE OF CONSULTATION: 09/02/2018 Patient is a 78-year-old female who is mostly bedridden and being treated for a left ischial decubitu s. She is presently being treated with a wound VAC. She is debilitated because [place] [id number], but she is afebrile and she has chronic pyuria from an indwelling supra pubic catheter. She is admitted at this time for wound care as she was thought to have cellulitis an d increasing drainage around the wound VAC. PAST MEDICAL HISTORY: Multiple sclerosis, chronic left ischial decubitus, chronic pain syndrome, his tory of DVT, indwelling suprapubic catheter for neurogenic bladder and some recent history of C diff. MEDICATIONS: Listed in her chart. REVIEW OF SYSTEMS: Negative on a full 10-point review except as related to HPI. Specifically, she d oes not smoke. SOCIAL HISTORY: Reveals that she lives in a shelter. She does not smoke. FAMILY HISTORY: Noncontributory. PHYSICAL EXAMINATION: GENERAL: Reveals a cooperative, pleasantly senile 78-year-old female in no ac standing rock distress, afebrile. HEENT reveals no icterus, no adenopathy, no thyromegaly, PERRLA. NECK: Sup ple, nontender without masses. CHEST: Clear and symmetric. CARDIAC: Regular rhythm. ABDOMEN: Soft and nontender. EXTREMITIES: Reveal a left ischial decubitus with wound VAC in place. She has some p eripheral pulses. No clubbing. BACK: Nontender without without obvious defects. NEUROLOGIC: Physi ologic and symmetric. She is alert and oriented, but does have significant limited range of motion s econdary to her multiple sclerosis. PSYCH: Reveals her to be cooperative, alert. IMPRESSION: Left ischial decubitus which has some bone exposure and may need further debridement. PLAN: Wound evaluation and probable surgical debridement. /[id number]/MODL
== END 2018-09-09 13:12 | DRG 853 ==
LOC: EDUNIT# → F2W 17:05 → F3E 09-06 21:44
PROVIDERS: ADMIT Internal Medicine; ATTEND Internal Medicine
DX: A41.9 Sepsis, unspecified organism (principal); L89.324 Pressure ulcer of left buttock, stage 4; J96.10 Chronic respiratory failure, unspecified whether with hypoxia or hypercapnia; J44.9 Chronic obstructive pulmonary disease, unspecified; G35 Multiple sclerosis; G89.29 Other chronic pain; F11.20 Opioid dependence, uncomplicated; N31.9 Neuromuscular dysfunction of bladder, unspecified; E86.0 Dehydration; Z43.5 Encounter for attention to cystostomy; Z66 Do not resuscitate; Z86.718 Personal history of other venous thrombosis and embolism
CPT/HCPCS: 92526-GN; 92610-GN; 96374; 97166-GO; C1751; C1769; G8987-GO-CM; G8988-GO-CM; G8989-GO-CM; G8996-GN-CJ; G8997-GN-CI; G8998-GN-CI; J0295; J0696; J1650; J2270; J2310; J2704; J3010; J3370; J3480; J7613